=== PATIENT | male | born 1985 | race African-American/Black ===

== ENCOUNTER 2017-03-19 13:45 | Observation (INO) | payer MEDICARE, OTHER ==
[~2017-03-19] VITALS: Ht 177.8 cm; Wt 60.0 kg
[~2017-03-19 13:45] MED LIST: BENZ1 PO; BENZ1TAB PO; DEPA500T3 PO; FLUP125P IM; RISP.5 PO; RISP1 PO
[2017-03-19 13:46] VITALS: BP 111/82; PULSE 98; RESP 14; TEMP 97.7; O2SAT 97
--- NOTE | 2017-03-19 14:48 | PD ---
HPI Chief Complaint: Psychiatric Symptoms Time Seen by Provider: 14:35 Travel History International Travel<30 days: No Contact w/Intl Traveler<30days: No Traveled to known affect area: No History of Present Illness HPI 32-year-old male with history of schizophrenia presents with his mother voluntarily for psychiatric evaluation. Over the past several days the patient has been increasingly agitated, talking to himself, intermittently screaming, having paranoid hallucinations. Last night he woke up and they weren't told the neighbor that someone shot him in the head. The mother reports that his schizophrenia symptoms have been well-controlled asthma patient but she is concerned that he may not be taking his medication as prescribed. He does not have an appointment with his psychiatrist at [facility] ([facility]) until April 01 in because the symptoms have been worsening this prompted evaluation today. He does endorse increasing alcohol use over the past few weeks as well. He admits to occasional marijuana use. Denies any suicidal or homicidal ideation. He has no other complaints at this time. PFSH Past Medical History Anxiety: Yes Depression: Yes Diminished Hearing: No Endocrine: No Gastrointestinal Disorders: No Genitourinary: No Immune Disorder: No Inguinal Hernia: Yes Implanted Vascular Access Dvce: No Musculoskeletal: No Neurologic: No Reproductive: No Respiratory: No Schizophrenia: Yes (PARANOID TYPE) PNEUMOCCOCAL Vaccine (Year): 2 Past Surgical History Abdominal Surgery: Yes (INGUINAL HERNIA RIGHT) Genitourinary Surgery: Yes (INGUINAL HERNIA REPAIR) Social History Alcohol Use: Yes Tobacco Use: Yes Substance Use: No Allergies-Medications (Allergen,Severity, Reaction): Coded Allergies: No Known Allergies (Verified , 03/19/17) Reported Meds & Prescriptions Reported Meds & Active Scripts Active Reported Benztropine (Benztropine Mesylate) 0.5 Mg Tab 1 Mg PO BID Depakote ER (Divalproex Sodium) 500 Mg Daniele 500 Mg PO BID Risperdal (Risperidone) 4 Mg Tab 4 Mg PO Q12HR Review of Systems Except as stated in HPI: all other systems reviewed are Neg Physical Exam Narrative GENERAL: Well-developed well-nourished male in no acute distress SKIN: Warm and dry. HEAD: Atraumatic. Normocephalic. EYES: Pupils equal and round. No scleral icterus. No injection or drainage. ENT: No nasal bleeding or discharge. Mucous membranes pink and moist. NECK: Trachea midline. No JVD. CARDIOVASCULAR: Regular rate and rhythm. No murmur appreciated. RESPIRATORY: No accessory muscle use. Clear to auscultation. Breath sounds equal bilaterally. GASTROINTESTINAL: Abdomen soft, non-tender, nondistended. Hepatic and splenic margins not palpable. MUSCULOSKELETAL: No obvious deformities. No edema NEUROLOGICAL: Awake and alert. No obvious cranial nerve deficits. Motor grossly within normal limits. Normal speech. PSYCHIATRIC: Flat affect, anxious and rocking back and forth. Data Data Last Documented VS Vital Signs Date Time Temp Pulse Resp B/P Pulse Ox O2 Delivery O2 Flow Rate FiO2 03/19/17 13:46 97.7 98 14 111/82 97 Orders Complete Blood Count With Diff (03/19/17 14:45) Comprehensive Metabolic Panel (03/19/17 14:45) Psych Screen (03/19/17 14:45) Drug Screen, Random Urine (03/19/17 14:45) Alcohol (Ethanol) (03/19/17 14:45) Urinalysis - C+S If Indicated (03/19/17 16:54) ^ Sitter (03/19/17 16:54) Benztropine (Cogentin) (03/19/17 21:00) Divalproex Er (Depakote Er) (03/19/17 21:00) (Nf) Risperidone (Risperdal) (03/19/17 21:00) Consult Psychiatry (03/19/17 ) Labs Laboratory Tests Test 03/19/17 15:43 White Blood Count 7.3 TH/MM3 Red Blood Count 5.43 MIL/MM3 Hemoglobin 16.4 GM/DL Hematocrit 49.3 % Mean Corpuscular Volume 90.8 FL Mean Corpuscular Hemoglobin 30.2 PG Mean Corpuscular Hemoglobin 33.3 % Concent Red Cell Distribution Width 13.8 % Platelet Count 218 TH/MM3 Mean Platelet Volume 7.9 FL Neutrophils (%) (Auto) 76.4 % Lymphocytes (%) (Auto) 9.0 % Monocytes (%) (Auto) 14.5 % Eosinophils (%) (Auto) 0.0 % Basophils (%) (Auto) 0.1 % Neutrophils # (Auto) 5.6 TH/MM3 Lymphocytes # (Auto) 0.7 TH/MM3 Monocytes # (Auto) 1.1 TH/MM3 Eosinophils # (Auto) 0.0 TH/MM3 Basophils # (Auto) 0.0 TH/MM3 CBC Comment DIFF FINAL Differential Comment Sodium Level 137 MEQ/L Potassium Level 3.9 MEQ/L Chloride Level 102 MEQ/L Carbon Dioxide Level 23.7 MEQ/L Anion Gap 11 MEQ/L Blood Urea Nitrogen 18 MG/DL Creatinine 2.82 MG/DL Estimat Glomerular Filtration 32 ML/MIN Rate Random Glucose 103 MG/DL Calcium Level 10.2 MG/DL Total Bilirubin 1.1 MG/DL Aspartate Amino Transf 210 U/L (AST/SGOT) Alanine Aminotransferase 81 U/L (ALT/SGPT) Alkaline Phosphatase 79 U/L Total Protein 9.6 GM/DL Albumin 5.0 GM/DL Ethyl Alcohol Level LESS THAN 3 MG/DL MDM Medical Decision Making Medical Screen Exam Complete: Yes Emergency Medical Condition: Yes Medical Record Reviewed: Yes Differential Diagnosis Schizophrenia, medication noncompliance, acute psychosis, substance induced mood disorder Narrative Course 32-year-old male presents voluntarily requesting psychiatric evaluation of worsening agitation, paranoid hallucinations. The patient's lab work reveals a creatinine of 2.82, GFR 32 which is significantly elevated from his baseline, GFR and November 2015 was 115. He has normal BUN. The patient will be admitted for further workup of this acute renal insufficiency. Likely psychiatric consultation. A sitter will be ordered. Discussed with Dr. Izaguirre who is agreeable with admission. Diagnosis Primary Impression: Schizophrenia, paranoid Additional Impression: Acute renal insufficiency Admitting Information Admitting Physician Requests: Observation Filiberto Yuan Mar 19, 2017 14:48
[2017-03-19] MEDS ORDERED: RISP4TAB41 PO (14:53)
[2017-03-19] MEDS ORDERED: BENZ0.5T PO (14:53)
[2017-03-19] MEDS ORDERED: DEPA500T3 PO (14:53)
[2017-03-19 16:33] LABS: AUTOMATED NEUTROPHIL # 5.6 TH/MM3 (1.8-7.7); BASOPHIL % 0.1 % (0.0-2.0); HEMATOCRIT 49.3 % (39.0-51.0); HEMO FLAGS DIFF FINAL; LYMPHOCYTE # 0.7 TH/MM3 (1.0-4.8); MEAN CELL VOLUME 90.8 FL (80.0-100.0); MEAN CORPUSCULAR HEMOGLOBIN 30.2 PG (27.0-34.0); MEAN CORPUSCULAR HGB CONC 33.3 % (32.0-36.0); MONO % 14.5 % (0.0-8.0); NEUT % 76.4 % (16.0-70.0); PLATELET COUNT 218 TH/MM3 (150-450); RED BLOOD COUNT 5.43 MIL/MM3 (4.50-5.90); RED CELL DISTRIBUTION WIDTH 13.8 % (11.6-17.2); WHITE BLOOD COUNT 7.3 TH/MM3 (4.0-11.0)
[2017-03-19 16:41] LABS: ALT (GPT) 81 U/L (12-78); ANION GAP 11 MEQ/L (5-15); AST (GOT) 210 U/L (15-37); BICARBONATE 23.7 MEQ/L (21.0-32.0); BLOOD UREA NITROGEN 18 MG/DL (7-18); CHLORIDE 102 MEQ/L (98-107); GLOMERULAR FILTRATION RATE 32 ML/MIN (>89); POTASSIUM 3.9 MEQ/L (3.5-5.1); SODIUM (NA) 137 MEQ/L (136-145)
[2017-03-19 16:43] LABS: ALKALINE PHOSPHATASE 79 U/L (45-117); TOTAL BILIRUBIN ADULT 1.1 MG/DL (0.2-1.0)
[2017-03-19] MEDS ORDERED: SODIUM CHLOR 0.9% 1000 ML INJ 1,000 ML IV SCH (17:03)
[2017-03-19] MEDS ORDERED: SODIUM CHLORIDE 0.9% FLUSH 10 ML FLUSH IV FLUSH PRN (17:15)
[2017-03-19] MEDS ORDERED: ACETAMINOPHEN 325 MG TAB PO PRN (17:15)
[2017-03-19] MEDS ORDERED: NALOXONE HCL 0.4 MG/ML AMP IV PRN (17:15)
[2017-03-19] MEDS ORDERED: LACTULOSE SYRUP 20 GM/30 ML CUP PO PRN (17:15)
[2017-03-19] MEDS ORDERED: ONDANSETRON HCL 4 MG/2 ML VIAL IVP PRN (17:15)
[2017-03-19] MEDS ORDERED: BISACODYL 10 MG SUPP RECTAL PRN (17:15)
[2017-03-19] MEDS ORDERED: SENNOSIDES 8.6 MG TAB PO PRN (17:15)
[2017-03-19] MEDS ORDERED: MAGNESIUM HYDROXIDE SUSP 30 ML CUP PO PRN (17:15)
--- NOTE | 2017-03-19 17:15 | HHI.HP ---
Brought in for Psychiatry specialist consult. HPI Service [facility] Primary Care Physician No Primary Care Physician Admission Diagnosis acute renal insufficiency, schizophrenia Diagnoses: Chief Complaint: Brought in by his mother for Psychiatry specialist consult. Travel History International Travel<30 Days: No Contact w/Intl Traveler <30 Da: No Traveled to Known Affected Are: No History of Present Illness 32-year-old male with history of schizophrenia presents with his mother voluntarily for psychiatric evaluation. Over the past several days the patient has been increasingly agitated, talking to himself, intermittently screaming, having paranoid hallucinations. Last night he woke up and they weren't told the neighbor that someone shot him in the head. The mother reports that his schizophrenia symptoms have been well- controlled asthma patient but she is concerned that he may not be taking his medication as prescribed. He does not have an appointment with his psychiatrist at [facility] until April 01 in because the symptoms have been worsening this prompted evaluation today. He does endorse increasing alcohol use over the past few weeks as well. He admits to occasional marijuana use. Denies any suicidal or homicidal ideation. He has no other complaints at this time. Seen in his bedroom his mother was not present but sitter in the room and nurse. Past Family Social History Past Medical History Anxiety Depression Schizophrenia Paranoid Type Past Surgical History Right inguinal hernia repair Reported Medications Reported Meds & Active Scripts Active Reported Benztropine (Benztropine Mesylate) 0.5 Mg Tab 1 Mg PO BID Depakote ER (Divalproex Sodium) 500 Mg Daniele 500 Mg PO BID Risperdal (Risperidone) 4 Mg Tab 4 Mg PO Q12HR Allergies: Coded Allergies: No Known Allergies (Verified , 03/19/17) Active Ordered Medications Current Medications Medications (Trade) Dose Ordered Sig/Nelson Route Start Time Stop Time Status Last Admin (Cogentin) 1 mg BID PO 03/19/17 21:00 (Depakote Er) 500 mg BID PO 03/19/17 21:00 Risperidone 4 mg 4 mg Q12HR PO 03/19/17 21:00 Sodium Chloride 1,000 ml @ 1,000 mls/hr Q1H IV 03/19/17 17:03 03/19/17 18:02 (NS 1000 ml Inj) 1,000 ml @ 150 mls/hr Q6H40M IV 03/19/17 17:02 (NS Flush) 2 ml UNSCH PRN IV FLUSH 03/19/17 17:15 (NS Flush) 2 ml BID IV FLUSH 03/19/17 21:00 (Tylenol) 650 mg Q4H PRN PO 03/19/17 17:15 (Zofran Inj) 4 mg Q6H PRN IVP 03/19/17 17:15 (Narcan Inj) 0.4 mg UNSCH PRN IV 03/19/17 17:15 (Deanne-Colace) 1 tab BID PO 03/19/17 21:00 (Milk Of Magnesia Liq) 30 ml Q12H PRN PO 03/19/17 17:15 (Senokot) 17.2 mg Q12H PRN PO 03/19/17 17:15 (Dulcolax Supp) 10 mg DAILY PRN RECTAL 03/19/17 17:15 (Lactulose Liq) 30 ml DAILY PRN PO 03/19/17 17:15 Family History Asked and denied. Social History Alcohol abuse Tobacco dependence Physical Exam Vital Signs Vital Signs Date Time Temp Pulse Resp B/P Pulse Ox O2 Delivery O2 Flow Rate FiO2 03/19/17 13:46 97.7 98 14 111/82 97 Physical Exam GENERAL: Well-developed well-nourished male in no acute distress SKIN: Warm and dry. HEAD: Atraumatic. Normocephalic. EYES: Pupils equal and round. No scleral icterus. No injection or drainage. ENT: No nasal bleeding or discharge. Mucous membranes pink and moist. NECK: Trachea midline. No JVD. CARDIOVASCULAR: Regular rate and rhythm. No murmur appreciated. RESPIRATORY: No accessory muscle use. Clear to auscultation. Breath sounds equal bilaterally. GASTROINTESTINAL: Abdomen soft, non-tender, nondistended. Hepatic and splenic margins not palpable. MUSCULOSKELETAL: No obvious deformities. No edema NEUROLOGICAL: Awake and alert. No obvious cranial nerve deficits. Motor grossly within normal limits. Normal speech. PSYCHIATRIC: Flat affect, anxious and rocking back and forth. Laboratory Laboratory Tests Test 03/19/17 15:43 White Blood Count 7.3 Red Blood Count 5.43 Hemoglobin 16.4 Hematocrit 49.3 Mean Corpuscular Volume 90.8 Mean Corpuscular Hemoglobin 30.2 Mean Corpuscular Hemoglobin 33.3 Concent Red Cell Distribution Width 13.8 Platelet Count 218 Mean Platelet Volume 7.9 Neutrophils (%) (Auto) 76.4 Lymphocytes (%) (Auto) 9.0 Monocytes (%) (Auto) 14.5 Eosinophils (%) (Auto) 0.0 Basophils (%) (Auto) 0.1 Neutrophils # (Auto) 5.6 Lymphocytes # (Auto) 0.7 Monocytes # (Auto) 1.1 Eosinophils # (Auto) 0.0 Basophils # (Auto) 0.0 CBC Comment DIFF FINAL Differential Comment Sodium Level 137 Potassium Level 3.9 Chloride Level 102 Carbon Dioxide Level 23.7 Anion Gap 11 Blood Urea Nitrogen 18 Creatinine 2.82 Estimat Glomerular Filtration 32 Rate Random Glucose 103 Calcium Level 10.2 Total Bilirubin 1.1 Aspartate Amino Transf 210 (AST/SGOT) Alanine Aminotransferase 81 (ALT/SGPT) Alkaline Phosphatase 79 Total Protein 9.6 Albumin 5.0 Ethyl Alcohol Level LESS THAN 3 Result Diagram: 03/19/17 1543 03/19/17 1543 Assessment and Plan Assessment and Plan 1. Acute Kidney Injury Creatinine 2.82, Kidney ultrasound and follow. patient dehydrated giving IV fluids and follow with BMP in am tomorrow. 2. Schizophrenia Paranoid Type continue Home medicines, grain origination specialist consult DVT prophylaxis with SCDs. Code Status Full Code. Discussed Condition With Patient, nurse and sitter. Shakir Olvera MD Mar 19, 2017 17:15
[2017-03-19] MEDS ORDERED: SODIUM CHLOR 0.9% 1000 ML INJ 1,000 ML IV ONE (17:30)
--- NOTE | 2017-03-19 17:53 | RADRPT ---
EXAM DATE/TIME: 03/19/2017 17:18 [place] COMPARISON: No previous studies available for comparison. INDICATIONS : Increased BUN/creatinine. MEDICAL HISTORY : Schizophrenia. Depression. Anxiety. Substance use. SURGICAL HISTORY : Inguinal hernia repair. ENCOUNTER: Initial ACUITY: 1 day PAIN SCORE: 0/10 LOCATION: Bilateral flank MEASUREMENTS: RIGHT KIDNEY: 10.5 x 5.2 x 3.6 cm LEFT KIDNEY: 10.5 x 4.2 x 5.5 cm FINDINGS: RIGHT KIDNEY: Renal cortex is normal in thickness and echotexture. No hydronephrosis, stone, or mass. LEFT KIDNEY: Renal cortex is normal in thickness and echotexture. No hydronephrosis, stone, or mass. BLADDER: Within normal limits given the degree of distension. CONCLUSION: Normal examination. Hugo Bang MD on March 19, 2017 at 17:49 Board Certified Radiologist. This report was verified electronically.
[2017-03-19 18:29] VITALS: BP 135/89; PULSE 76; RESP 22; TEMP 97.6; O2SAT 97
[2017-03-19] MEDS: SODIUM CHLOR 0.9% 1000 ML INJ 1,000 ML IV SCH (18:30)
[2017-03-19 20:00] VITALS: BP 120/76; PULSE 73; RESP 20; TEMP 97.9; O2SAT 98
[2017-03-19] MEDS: DOCUSATE SODIUM 50 MG/SENNA 8.6 MG TAB PO SCH (21:22)
[2017-03-19] MEDS: DIVALPROEX SODIUM E.R. 500 MG TAB PO SCH (21:23)
[2017-03-19] MEDS: risperiDONE 1 MG TAB PO SCH (23:24)
[2017-03-19] MEDS: BENZTROPINE MESYLATE 1 MG TAB PO SCH (23:25)
[2017-03-19] MEDS: SODIUM CHLORIDE 0.9% FLUSH 10 ML FLUSH IV FLUSH SCH (23:26)
[2017-03-20] VITALS: BP 121/75; PULSE 70; RESP 20; TEMP 97; O2SAT 98
[2017-03-20 04:00] VITALS: BP 116/70; PULSE 80; RESP 20; TEMP 97.8; O2SAT 98
[2017-03-20] MEDS: SODIUM CHLOR 0.9% 1000 ML INJ 1,000 ML IV SCH ×2 (06:14→08:33)
[2017-03-20 08:00] VITALS: BP 121/73; PULSE 90; RESP 18; TEMP 97.4; O2SAT 97
[2017-03-20] MEDS: DOCUSATE SODIUM 50 MG/SENNA 8.6 MG TAB PO SCH (08:32)
[2017-03-20] MEDS: DIVALPROEX SODIUM E.R. 500 MG TAB PO SCH (08:32)
[2017-03-20] MEDS: risperiDONE 1 MG TAB PO SCH (08:32)
[2017-03-20] MEDS: SODIUM CHLORIDE 0.9% FLUSH 10 ML FLUSH IV FLUSH SCH (08:33)
[2017-03-20] MEDS: BENZTROPINE MESYLATE 1 MG TAB PO SCH (08:33)
[2017-03-20 08:53] LABS: AUTOMATED NEUTROPHIL # 2.8 TH/MM3 (1.8-7.7); BASOPHIL % 0.4 % (0.0-2.0); EOSINOPHIL % 0.5 % (0.0-4.0); HEMATOCRIT 40.3 % (39.0-51.0); HEMO FLAGS DIFF FINAL; LYMPH % 21.1 % (9.0-44.0); LYMPHOCYTE # 0.9 TH/MM3 (1.0-4.8); MEAN CELL VOLUME 89.9 FL (80.0-100.0); MEAN CORPUSCULAR HEMOGLOBIN 30.8 PG (27.0-34.0); MEAN CORPUSCULAR HGB CONC 34.3 % (32.0-36.0); MONO % 10.8 % (0.0-8.0); NEUT % 67.2 % (16.0-70.0); PLATELET COUNT 183 TH/MM3 (150-450); RED BLOOD COUNT 4.48 MIL/MM3 (4.50-5.90); RED CELL DISTRIBUTION WIDTH 13.4 % (11.6-17.2); WHITE BLOOD COUNT 4.2 TH/MM3 (4.0-11.0)
[2017-03-20 09:18] LABS: BICARBONATE 23.2 MEQ/L (21.0-32.0); POTASSIUM 3.2 MEQ/L (3.5-5.1)
[2017-03-20 09:39] LABS: INDIRECT BILIRUBIN 0.6 MG/DL (0.0-0.8); TOTAL BILIRUBIN ADULT 0.9 MG/DL (0.2-1.0)
--- NOTE | 2017-03-20 10:55 | HHI.PR ---
Subjective Remarks Follow-up for schizophrenia and rhabdomyolysis. The patient has no acute medical complaints today. He states he has been eating, denies any vomiting. Denies any diarrhea. He denies any pain or muscle cramping. Psychiatry has recommended transfer to med psych unit for continued IV hydration. Objective Vitals Vital Signs Date Time Temp Pulse Resp B/P Pulse Ox O2 Delivery O2 Flow Rate FiO2 03/20/17 08:00 97.4 90 18 121/73 97 03/20/17 04:00 97.8 80 20 116/70 98 03/20/17 00:00 97.0 70 20 121/75 98 03/19/17 20:00 97.9 73 20 120/76 98 03/19/17 18:29 97.6 76 22 135/89 97 03/19/17 13:46 97.7 98 14 111/82 97 I/O 03/19/17 03/19/17 03/19/17 03/20/17 03/20/17 03/20/17 07:00 15:00 23:00 07:00 15:00 23:00 Intake Total 1640 ml Output Total 500 ml Balance 1140 ml Intake Oral 440 ml IV Total 1200 ml Output Urine Total 500 ml # Bowel Movements 0 Result Diagram: 03/20/17 0616 03/20/17 0616 Imaging Last Impressions Renal Ultrasound 03/19/17 0000 Signed Impressions: Service Date/Time: Sunday, March 19, 2017 17:18 - CONCLUSION: Normal examination. Hugo Bang MD Objective Remarks GENERAL: Well-developed well-nourished. In no acute distress. SKIN: Warm and dry. No lesions noted. HEENT: Normocephalic. Pupils equal and round. Mucous membranes pink and moist. CARDIOVASCULAR: Regular rate and rhythm. No murmur appreciated. RESPIRATORY: No accessory muscle use. Clear to auscultation. Breath sounds equal bilaterally. GASTROINTESTINAL: Abdomen soft, non-tender, nondistended. Bowel sounds x4. MUSCULOSKELETAL: No obvious deformities. No clubbing or cyanosis. No edema. NEUROLOGICAL: Awake and alert. No focal neurological deficits. Moves upper and lower extremities spontaneously. Normal speech. PSYCHIATRIC: Anxious mood and flat affect; insight and judgment fair A/P Assessment and Plan 32-year-old male with past medical history of schizophrenia who presented for voluntary psychiatric evaluation Rhabdomyolysis with acute kidney injury: Asymptomatic. Reviewed: Presented with creatinine 2.82, previously 0.9 throughout 12/06/15. Creatinine improved to 1.01, however CPK remains 12,000. Renal ultrasound normal. Potassium 3.2. -Continue aggressive IVF and trend CPK -UDS ordered -Replace potassium orally. Mildly elevated LFTs: Elevated bilirubin, AST, ALT. Secondary to rhabdomyolysis. Treatment as above. Schizophrenia with acute hallucinations and paranoia: Psychiatry has been consulted and recommends transferring to inpatient psychiatry. Continue home Cogentin, Depakote, and Risperdal. Mendel. DVT prophylaxis: SCDs Discharge Planning Discharge to med psych unit for continued aggressive IVF, laboratory monitoring , and psychiatric care Antonio Lizama Mar 20, 2017 10:55
[2017-03-20] MEDS ORDERED: POTASSIUM CHLORIDE 10 MEQ CONTROLLED RELEASE TAB PO ONE (11:00)
[2017-03-20] MEDS ORDERED: POTASSIUM CHLORIDE 20 MEQ PWD PACKET PO ONE (11:30)
--- NOTE | 2017-03-20 11:39 | PD.CONS ---
Provisional Diagnosis Admission Date Mar 19, 2017 at 17:04 [place] I. Chronic paranoid schizophrenia, acute exacerbation, alcohol use disorder [place] II. Deferred [place] III. No significant medical history [place] IV. Noncompliant with psychotropics, alcohol use [place] V. 40 History of Present Illness Service Psychiatry Consult Requested By Primary Care Physician No Primary Care Physician HPI The patient is a 32-year-old man, domiciled alone, single, unemployed, supported by [employer] [facility], with extensive psychiatric history of schizophrenia, alcohol use disorder, numerous psychiatric hospitalizations, known by service, last hospitalization was here in [place] in 2016 under the care of Dr. Sutton, documentation was reviewed, outpatient service in [facility], his on Risperdal 3 mg twice a day, Depakote 500 mg twice a day, medical history of asthma, who presents with his mother voluntarily for psychiatric evaluation. As per mother collateral information , Debora Mcmanus, , over the past several days the patient has been increasingly agitated, paranoid at times , yelling at night and bothering the neighbors, paranoid toward the neighbors, talking to himself, internally preoccupied, and having visual and auditory hallucinations. Last night he woke up and they weren't told the neighbor that someone shot him in the head. The mother, Debora Mcmanus, , reports that his psychotic symptoms have been well-controlled so far with medication until days ago, but she is concerned that he may not be taking his medication as prescribed and taking alcohol. He does not have an appointment with his psychiatrist at [facility] until April 01 in because the symptoms have been worsening this prompted evaluation today. He does endorse increasing alcohol use over the past few weeks as well. He admits to occasional marijuana use. Denies any suicidal or homicidal ideation. Patient is admitted under observation in the ER due to increased CPK and acute renal failure. He was adopted evaluation patient is found in his room, guarded, reticent, he says that he feels better, he says that he doesn't have a reason to be admitted psychiatrically. Patient says that he has been taking his medication on and off. He he says that he doesn't know the name of his medication or his psychiatrist, "ask my mother". No agitation, no aggressive behavior, no disorganization is evident at this moment. Review of Systems Constitutional: DENIES: Diaphoretic episodes, Fatigue, Fever, Weight gain, Weight loss, Chills, Dizziness, Change in appetite, Night Sweats Endocrine: DENIES: Heat/cold intolerance, Polydipsia, Polyuria, Polyphagia Eyes: DENIES: Blurred vision, Diplopia, Eye inflammation, Eye pain, Vision loss , Photosensitivity, Double Vision Ears, nose, mouth, throat: DENIES: Tinnitus, Hearing loss, Vertigo, Nasal discharge, Oral lesions, Throat pain, Hoarseness, Ear Pain, Running Nose, Epistaxis, Sinus Pain, Toothache, Odynophagia Respiratory: DENIES: Apneas, Cough, Snoring, Wheezing, Hemoptysis, Sputum production, Shortness of breath Cardiovascular: DENIES: Chest pain, Palpitations, Syncope, Dyspnea on Exertion , PND, Lower Extremity Edema, Orthopnea, Claudication Gastrointestinal: DENIES: Abdominal pain, Black stools, Bloody stools, Constipation, Diarrhea, Nausea, Vomiting, Difficulty Swallowing, Anorexia Genitourinary: DENIES: Sexual dysfunction, Urinary frequency, Urinary incontinence, Urgency, Hematuria, Dysuria, Nocturia, Penile Discharge, Testicular Pain, Testicular Swelling Musculoskeletal: DENIES: Joint pain, Muscle aches, Stiffness, Joint Swelling, Back pain, Neck pain Integumentary: DENIES: Abnormal pigmentation, Nail changes, Pruritus, Rash Hematologic/lymphatic: DENIES: Bruising, Lymphadenopathy Immunologic/allergic: DENIES: Eczema, Urticaria Neurologic: DENIES: Abnormal gait, Headache, Localized weakness, Paresthesias, Seizures, Speech Problems, Tremor, Poor Balance Psychiatric: DENIES: Anxiety, Confusion, Mood changes, Depression, Hallucinations, Agitation, Suicidal Ideation, Homicidal Ideation, Delusions Past Family Social History Coded Allergies: No Known Allergies (Verified , 03/19/17) Reported Medications Benztropine 0.5 Mg Tab1 Mg PO BID #60 TAB Ref 0 03/19/17 Divalproex ER (Depakote ER)500 Mg [id number] Mg PO BID #30 TAB Ref 0 03/19/17 Risperidone (Risperdal)4 Mg Tab4 Mg PO Q12HR #60 TAB Ref 0 03/19/17 Current Medications Medications (Trade) Dose Ordered Sig/Nelson Route Start Time Stop Time Status Last Admin (Cogentin) 1 mg BID PO 03/19/17 21:00 03/20/17 08:33 (Depakote Er) 500 mg BID PO 03/19/17 21:00 03/20/17 08:32 Risperidone 4 mg 4 mg Q12HR PO 03/19/17 21:00 03/20/17 08:32 (NS 1000 ml Inj) 1,000 ml @ 150 mls/hr Q6H40M IV 03/19/17 17:02 03/20/17 08:33 (NS Flush) 2 ml UNSCH PRN IV FLUSH 03/19/17 17:15 (NS Flush) 2 ml BID IV FLUSH 03/19/17 21:00 03/20/17 08:33 (Tylenol) 650 mg Q4H PRN PO 03/19/17 17:15 (Zofran Inj) 4 mg Q6H PRN IVP 03/19/17 17:15 (Narcan Inj) 0.4 mg UNSCH PRN IV 03/19/17 17:15 (Deanne-Colace) 1 tab BID PO 03/19/17 21:00 03/20/17 08:32 (Milk Of Magnesia Liq) 30 ml Q12H PRN PO 03/19/17 17:15 (Senokot) 17.2 mg Q12H PRN PO 03/19/17 17:15 (Dulcolax Supp) 10 mg DAILY PRN RECTAL 03/19/17 17:15 (Lactulose Liq) 30 ml DAILY PRN PO 03/19/17 17:15 (KCl Powder) 40 meq ONCE ONCE PO 03/20/17 11:30 03/20/17 11:31 Family History Patient denies psychiatric family history Social History Patient was born and raised in [place], he lives alone, single, unemployed , supported by [employer] [facility], Patient's Strengths (min. 2) Support of his mother Physical Exam A physical examination patient does not present any tremors, no withdrawal, no EPS, no psychomotor agitation or retardation Vital Signs Vital Signs Date Time Temp Pulse Resp B/P Pulse Ox O2 Delivery O2 Flow Rate FiO2 03/20/17 08:00 97.4 90 18 121/73 97 Lab Results Laboratory Tests Test 03/19/17 15:43 White Blood Count 7.3 Red Blood Count 5.43 Hemoglobin 16.4 Hematocrit 49.3 Mean Corpuscular Volume 90.8 Mean Corpuscular Hemoglobin 30.2 Mean Corpuscular Hemoglobin 33.3 Concent Red Cell Distribution Width 13.8 Platelet Count 218 Mean Platelet Volume 7.9 Neutrophils (%) (Auto) 76.4 Lymphocytes (%) (Auto) 9.0 Monocytes (%) (Auto) 14.5 Eosinophils (%) (Auto) 0.0 Basophils (%) (Auto) 0.1 Neutrophils # (Auto) 5.6 Lymphocytes # (Auto) 0.7 Monocytes # (Auto) 1.1 Eosinophils # (Auto) 0.0 Basophils # (Auto) 0.0 CBC Comment DIFF FINAL Differential Comment Sodium Level 137 Potassium Level 3.9 Chloride Level 102 Carbon Dioxide Level 23.7 Anion Gap 11 Blood Urea Nitrogen 18 Creatinine 2.82 Estimat Glomerular Filtration 32 Rate Random Glucose 103 Calcium Level 10.2 Total Bilirubin 1.1 Aspartate Amino Transf 210 (AST/SGOT) Alanine Aminotransferase 81 (ALT/SGPT) Alkaline Phosphatase 79 Total Protein 9.6 Albumin 5.0 Ethyl Alcohol Level LESS THAN 3 Result Diagram: 03/19/17 1543 03/19/17 1543 Mental Status Examination Appearance man, [facility], [facility], poor hygiene, poorly cooperative , guarded Speech: Unremarkable, Hesitant Orientation: x3 Memory: Unremarkable Thought Process: Goal Directed, Thought Blocking Thought Content: Bizarre thinking, Paranoid Hallucination Type: None Attention and Concentration: Good Suicidal Ideation: No Previous Suicide Attempts: No Homicidal Ideation: No Previous Homicide Attempts: No Insight: Poor Judgment: Poor Affect: Irritable Affect if Inappropriate: Flat Mood: Appropriate Motor Activity: Normal gait Assessment & Plan Problem List: (1) Schizophrenia, paranoid Assessment & Plan: Patient seems to present a decompensation of his schizophrenic condition, as per mother patient has been increasingly paranoid, disorganized, talking to himself, internally preoccupied, visual and auditory hallucinations, yelling at night, paranoia against his neighbor's in the context of noncompliance with medications, and increased alcohol use. On somatic evaluation patient is guarded, selectively mute, but mostly cooperative , and willing to accept a voluntary admission for stabilization. Due to his acute renal failure, increased CPK, and his need of aggressive hydration, patient will be admitted in the med psych unit. We will restart Risperdal 2 mg twice a day, Depakote 500 mg twice a day, with order Depakote level. Collateral information from [facility] is is still pending. Will order also Depakote levels. ICD Code: F20.0 Assessment & Plan Estimated LOS: Raj Newsome MD Mar 20, 2017 11:39
[2017-03-20] MEDS ORDERED: risperiDONE 1 MG TAB PO SCH (21:00)
== END 2017-03-20 13:02 ==
LOC: NEPE 13:45 → NEDA 17:04 → NEPHCDU 18:09
PROVIDERS: ADMIT Hospitalist; ATTEND Hospitalist
DX: F20.0 Paranoid schizophrenia (principal); M62.82 Rhabdomyolysis; N17.9 Acute kidney failure, unspecified; F41.9 Anxiety disorder, unspecified; F32.9 Major depressive disorder, single episode, unspecified; F17.200 Nicotine dependence, unspecified, uncomplicated; Z56.0 Unemployment, unspecified
CPT/HCPCS: 76775; 80048; 80053; 80076; 80164; 80307; 82550; 82552; 85025; 99285; G0378; J7030

== ENCOUNTER 2017-03-20 11:27 | Inpatient (IN) | payer MEDICARE, OTHER ==
[~2017-03-20] VITALS: Ht 177.8 cm; Wt 58.6 kg
[~2017-03-20 11:27] MED LIST changes: +BENZ0.5T PO; +RISP4TAB41 PO
[2017-03-20 13:38] VITALS: BP 115/68; PULSE 81; RESP 16; TEMP 98.3; O2SAT 96
[2017-03-20] MEDS: risperiDONE 1 MG TAB PO SCH ×2 (14:15→20:33)
[2017-03-20] MEDS: DIVALPROEX SODIUM E.R. 500 MG TAB PO SCH ×2 (14:15→20:33)
[2017-03-20] MEDS: BENZTROPINE MESYLATE 1 MG TAB PO SCH ×2 (14:15→20:33)
[2017-03-20 19:10] VITALS: BP 134/61; PULSE 86; RESP 16; TEMP 98; O2SAT 97
[2017-03-21 06:17] VITALS: BP 100/60; PULSE 73; RESP 17; TEMP 97.6; O2SAT 97
[2017-03-21] MEDS: BENZTROPINE MESYLATE 1 MG TAB PO SCH ×2 (08:56→20:54)
[2017-03-21] MEDS: risperiDONE 1 MG TAB PO SCH ×2 (08:56→20:54)
[2017-03-21] MEDS: DIVALPROEX SODIUM E.R. 500 MG TAB PO SCH ×2 (08:56→20:54)
--- NOTE | 2017-03-21 12:43 | HHI.HP ---
Provisional Diagnosis Admission Date Mar 20, 2017 at 13:03 Florence I. Schizophrenia, paranoid type, acute exacerbation, alcohol use disorder Florence II. Deferred Florence III. Acute renal failure Florence IV. History of noncompliance with medication, alcohol use Florence V. 35 Certification of Person's Competence To Provide Express and Informed Consent I have personally examined Danny Mcmanus , a person being served at [facility] on, Mar 21, 2017 12:33. Express and informed consent means consent voluntarily given in writing, by a competent person, after sufficient explanation and disclosure of the subject matter involved to enable the person to make a knowing and willful decision without any element of force, fraud, deceit, duress, or other form of constraint or coercion. This person is 18 years of age or older, is not now known to be incompetent to consent to treatment with a guardian advocate, and does not have a health care surrogate or proxy currently making medical treatment decisions. I have found this person to be one of the following: [X] Competent to provide express and informed consent, as defined above, for voluntary admission to this facility and is competent to provide express and informed consent for treatment. He/she has the consistent capacity to make well reasoned, willful, and knowing decisions concerning his or her medical or mental health treatment. The person fully and consistently understands the purpose of the admission for examination/placement and is fully capable of personally exercising all rights assured under [place] Incompetent to provide express and informed consent to voluntary admission, and this is incompetent to provide express and informed consent to treatment. The person must be transferred to involuntary status and a petition for a guardian advocate filed with the Circuit Court. [] Refusing to provide express and informed consent to voluntary admission but is competent to provide express and informed consent for treatment. The person must be discharged or transferred to involuntary status. Form shall be completed within 24 hours of a person's arrival at the receiving facility and filed in the clinical record of each person: 1. Admitted on a voluntary basis 2. Permitted to provide express and informed consent to his/her own treatment 3. Allowed to transfer from involuntary to voluntary status 4. Prior to permitting a person to consent to his or her own treatment after having been previously found incompetent to consent to treatment. History of Present Illness Capacity: Has Capacity HPI 02/17/2017 The patient is a 32-year-old man, domiciled alone, single, unemployed, supported by [facility], with extensive psychiatric history of schizophrenia, alcohol use disorder, numerous psychiatric hospitalizations, known by service, last hospitalization was here in [place] in 2016 under the care of Dr. Sutton, documentation was reviewed, outpatient service in [facility], his on Risperdal 3 mg twice a day, Depakote 500 mg twice a day, medical history of asthma, who presents with his mother voluntarily for psychiatric evaluation. As per mother collateral information Debora Mcmanus, , over the past several days the patient has been increasingly agitated, paranoid at times , yelling at night and bothering the neighbors, paranoid toward the neighbors, talking to himself, internally preoccupied, and having visual and auditory hallucinations. Last night he woke up and they weren't told the neighbor that someone shot him in the head. The mother, Debora Mcmanus, , reports that his psychotic symptoms have been well-controlled so far with medication until days ago, but she is concerned that he may not be taking his medication as prescribed and taking alcohol. He does not have an appointment with his psychiatrist at [facility] until April 01 in because the symptoms have been worsening this prompted evaluation today. He does endorse increasing alcohol use over the past few weeks as well. He admits to occasional marijuana use. Denies any suicidal or homicidal ideation. Patient is admitted under observation in the ER due to increased CPK and acute renal failure. He was adopted evaluation patient is found in his room, guarded, reticent, he says that he feels better, he says that he doesn't have a reason to be admitted psychiatrically. Patient says that he has been taking his medication on and off. He he says that he doesn't know the name of his medication or his psychiatrist, "ask my mother". No agitation, no aggressive behavior, no disorganization is evident at this moment. 02/18/2017: On psychiatric evaluation today patient is found pacing in the unit, patient says that he feels better, he says that he has been walking in cycles, "looking for power", he seems to be disorganized, loosening of associations, bizarre and delusional ideas, paranoid against staff, however no agitation, no aggressive behavior, and patient seems to be redirectable. Patient admits that he has been taking his medication on and off, using alcohol and marijuana frequent. Today his color level is 52. Patient seems to be internally stimulated, but he denies visual and auditory hallucinations, he denies suicidal and homicidal ideation. Patient is oriented 3, no attention deficit, no fluctuation of consciousness present. Review of Systems Constitutional: DENIES: Diaphoretic episodes, Fatigue, Fever, Weight gain, Weight loss, Chills, Dizziness, Change in appetite, Night Sweats Endocrine: DENIES: Heat/cold intolerance, Polydipsia, Polyuria, Polyphagia Eyes: DENIES: Blurred vision, Diplopia, Eye inflammation, Eye pain, Vision loss , Photosensitivity, Double Vision Ears, nose, mouth, throat: DENIES: Tinnitus, Hearing loss, Vertigo, Nasal discharge, Oral lesions, Throat pain, Hoarseness, Ear Pain, Running Nose, Epistaxis, Sinus Pain, Toothache, Odynophagia Respiratory: DENIES: Apneas, Cough, Snoring, Wheezing, Hemoptysis, Sputum production, Shortness of breath Cardiovascular: DENIES: Chest pain, Palpitations, Syncope, Dyspnea on Exertion , PND, Lower Extremity Edema, Orthopnea, Claudication Gastrointestinal: DENIES: Abdominal pain, Black stools, Bloody stools, Constipation, Diarrhea, Nausea, Vomiting, Difficulty Swallowing, Anorexia Hematologic/lymphatic: DENIES: Bruising, Lymphadenopathy Neurologic: DENIES: Abnormal gait, Headache, Localized weakness, Paresthesias, Seizures, Speech Problems, Tremor, Poor Balance Psychiatric: COMPLAINS OF: Agitation, Delusions Past Psych History Violence risk - others (6 mos) Increased Violence risk - self (6 mos) Increased Substance Abuse History Drugs/Alcohol past 12 months Patient has been using marijuana and alcohol frequently in the last month, he fails to quantify his intake Past Family Social History Coded Allergies: No Known Allergies (Verified , 03/19/17) Reported Medications Benztropine 0.5 Mg Tab1 Mg PO BID #60 TAB Ref 0 03/19/17 Divalproex ER (Depakote ER)500 Mg [id number] Mg PO BID #30 TAB Ref 0 03/19/17 Risperidone (Risperdal)4 Mg Tab4 Mg PO Q12HR #60 TAB Ref 0 03/19/17 Current Medications Medications (Trade) Dose Ordered Sig/Nelson Route Start Time Stop Time Status Last Admin (Cogentin) 1 mg BID PO 03/20/17 14:15 03/21/17 08:56 (Depakote Er) 500 mg BID PO 03/20/17 14:15 03/21/17 08:56 (risperDAL) 4 mg Q12HR PO 03/20/17 14:15 03/21/17 08:56 Family History Patient denies family psychiatric history Social History Patient was born and raised in [place], he lives alone, single, unemployed , supported by [facility], Patient's Strengths (min. 2) Verbal communication, Physical Exam On physical examination, no tremors, no ideas, no stiffness, no withdrawal symptoms, no psychomotor retardation, but agitation present. Vital Signs Vital Signs Date Time Temp Pulse Resp B/P Pulse Ox O2 Delivery O2 Flow Rate FiO2 03/21/17 06:17 97.6 73 17 100/60 97 Lab Results Test 03/19/17 15:43 White Blood Count 7.3 Red Blood Count 5.43 Hemoglobin 16.4 Hematocrit 49.3 Mean Corpuscular Volume 90.8 Mean Corpuscular Hemoglobin 30.2 Mean Corpuscular Hemoglobin 33.3 Concent Red Cell Distribution Width 13.8 Platelet Count 218 Mean Platelet Volume 7.9 Neutrophils (%) (Auto) 76.4 Lymphocytes (%) (Auto) 9.0 Monocytes (%) (Auto) 14.5 Eosinophils (%) (Auto) 0.0 Basophils (%) (Auto) 0.1 Neutrophils # (Auto) 5.6 Lymphocytes # (Auto) 0.7 Monocytes # (Auto) 1.1 Eosinophils # (Auto) 0.0 Basophils # (Auto) 0.0 CBC Comment DIFF FINAL Differential Comment Sodium Level 137 Potassium Level 3.9 Chloride Level 102 Carbon Dioxide Level 23.7 Anion Gap 11 Blood Urea Nitrogen 18 Creatinine 2.82 Estimat Glomerular Filtration 32 Rate Random Glucose 103 Calcium Level 10.2 Total Bilirubin 1.1 Aspartate Amino Transf 210 (AST/SGOT) Alanine Aminotransferase 81 (ALT/SGPT) Alkaline Phosphatase 79 Total Protein 9.6 Albumin 5.0 Ethyl Alcohol Level LESS THAN 3 Result Diagram: 03/19/17 1543 03/19/17 1543 Mental Status Examination Appearance man, disheveled, poor dental hygiene, hospital [facility], age appearing, superficially cooperative, agitated Speech: Tangential Orientation: x3 Memory: Unremarkable Thought Process: Loose Association, Tangential Thought Content: Paranoid Language Fluent and spontaneous Fund of Knowledge Limited and concrete Hallucination Type: None Attention and Concentration: Good Attention Remarks No attention deficit Suicidal Ideation: No Previous Suicide Attempts: Yes Homicidal Ideation: No Previous Homicide Attempts: No Insight: Poor Judgment: Poor Affect: Irritable Mood: Irritable Motor Activity: Normal gait Assessment & Plan Problem List: (1) Schizophrenia, paranoid Assessment & Plan: Patient seems to present a decompensation of his schizophrenic condition, as per mother patient has been increasingly paranoid, disorganized, talking to himself, internally preoccupied, visual and auditory hallucinations, yelling at night, paranoia against his neighbor's in the context of noncompliance with medications, and increased alcohol use. On somatic evaluation patient is guarded, selectively mute, but mostly cooperative , and willing to accept a voluntary admission for stabilization. Due to his acute renal failure, increased CPK, and his need of aggressive hydration, patient will be admitted in the med psych unit. We would restart 4 mg twice a day, Depakote 500 mg twice a day, with order Depakote level. Collateral information from [facility] is is still pending. Will order also Depakote levels. spot worker intervention for psychosocial assessment, collateral information, individual and group psychotherapy. Extensive support, motivation psycho education provided. ICD Code: F20.0 Assessment & Plan Estimated LOS: Raj Newsome MD Mar 21, 2017 12:42
[2017-03-21 17:29] VITALS: BP 102/65; PULSE 72; RESP 16; TEMP 97.9; O2SAT 98
[2017-03-22 05:36] VITALS: BP 106/57; PULSE 54; RESP 16; TEMP 98.2; O2SAT 99
[2017-03-22] MEDS: BENZTROPINE MESYLATE 1 MG TAB PO SCH (08:34)
[2017-03-22] MEDS: DIVALPROEX SODIUM E.R. 500 MG TAB PO SCH (08:34)
[2017-03-22] MEDS: risperiDONE 1 MG TAB PO SCH (08:34)
[2017-03-22] MEDS ORDERED: RISP1 PO (10:53)
[2017-03-22] MEDS ORDERED: Benztropine PO (10:53)
[2017-03-22] MEDS ORDERED: DEPA500T3 PO (10:53)
--- NOTE | 2017-03-22 12:10 | HHI.DS ---
Psychiatry Discharge Summary Inpatient Psychiatric care?: Yes Advance Directive: No Reason Not Provided: Due to Patient Condition Mental Health AdvanceDirective: No Health Care Proxy: Yes Admission Admission Date Mar 20, 2017 at 13:03 Admission Diagnosis: (1) Schizophrenia, paranoid ICD Code: F20.0 Brief History 02/17/2017 The patient is a 32-year-old man, domiciled alone, single, unemployed, supported by [facility], with extensive psychiatric history of schizophrenia, alcohol use disorder, numerous psychiatric hospitalizations, known by service, last hospitalization was here in [place] in 2016 under the care of Dr. Sutton, documentation was reviewed, outpatient service in [facility], his on Risperdal 3 mg twice a day, Depakote 500 mg twice a day, medical history of asthma, who presents with his mother voluntarily for psychiatric evaluation. As per mother collateral information Debora Mcmanus, , over the past several days the patient has been increasingly agitated, paranoid at times , yelling at night and bothering the neighbors, paranoid toward the neighbors, talking to himself, internally preoccupied, and having visual and auditory hallucinations. Last night he woke up and they weren't told the neighbor that someone shot him in the head. The mother, Debora Mcmanus, , reports that his psychotic symptoms have been well-controlled so far with medication until days ago, but she is concerned that he may not be taking his medication as prescribed and taking alcohol. He does not have an appointment with his psychiatrist at [facility] until April 01 in because the symptoms have been worsening this prompted evaluation today. He does endorse increasing alcohol use over the past few weeks as well. He admits to occasional marijuana use. Denies any suicidal or homicidal ideation. Patient is admitted under observation in the ER due to increased CPK and acute renal failure. He was adopted evaluation patient is found in his room, guarded, reticent, he says that he feels better, he says that he doesn't have a reason to be admitted psychiatrically. Patient says that he has been taking his medication on and off. He he says that he doesn't know the name of his medication or his psychiatrist, "ask my mother". No agitation, no aggressive behavior, no disorganization is evident at this moment. 02/18/2017: On psychiatric evaluation today patient is found pacing in the unit, patient says that he feels better, he says that he has been walking in cycles, "looking for power", he seems to be disorganized, loosening of associations, bizarre and delusional ideas, paranoid against staff, however no agitation, no aggressive behavior, and patient seems to be redirectable. Patient admits that he has been taking his medication on and off, using alcohol and marijuana frequent. Today his color level is 52. Patient seems to be internally stimulated, but he denies visual and auditory hallucinations, he denies suicidal and homicidal ideation. Patient is oriented 3, no attention deficit, no fluctuation of consciousness present. Tobacco Use In Past 30 Days: 5 or More Cigarettes/Day Alcohol Use: Never Hospital Course Patient was admitted in the psychiatric kline due to disorganized behavior, paranoia and noncompliant with medications. Immediate safety measures were taken. Patient was placed in regular observation. Psychosocial and psychiatric assessment performed. She was reinitiated in outpatient psychiatric medications, individual and group psychotherapy. Patient showed almost an immediate positive effect from medications. He reached baseline very quickly. We met with his mother by phone, she was able to confirm the patient was at baseline and she doesn't have any safety concerns about him. We also contacted his outpatient mental health provider who agree with discharge plan, and served as a collateral informer of his medication in future appointments. Results Blood Pressure 106 / 57 Vital Signs Date Time Temp Pulse Resp B/P Pulse Ox O2 Delivery O2 Flow Rate FiO2 03/22/17 05:36 98.2 54 16 106/57 99 Reviewed Summary of Procedures No procedures done Pending results at discharge: No Medications # of Antipsychotic meds at D/C: 2 Appropriate >1 Antipsych meds?: 2 Approp Antipsych med options 1 - Minimum of three failed multiple trials of monotherapy. 2 - Documented plan to taper to monotherapy due to previous use of multiple meds OR cross-taper in progress at D/C. 3 - Documentation of augmentation of Clozapine. 4 - Justification other than those listed in allowable values 1-3, document here : Discharge Discharge Date: Mar 22, 2017 Discharge Diagnosis: (1) Schizophrenia, paranoid Diagnosis: Principal ICD Code: F20.0 Mental Status Exam at Disch -Americans age appearing man, questionable, [facility], age appearing, poor dental hygiene, he is calm, cooperative and pleasant. His his speech is fluent and spontaneous, his mood is euthymic, his affect is congruent with mood. His thought process is concrete, linear, goal-directed. His thought content is devoid of suicidal ideation, homicidal ideation, visual and auditory hallucinations, paranoia, delusions and ideas of reference. His judgment is fair, impulse control is good, insight is fair, his oriented 3, with good attention span, no gross cognitive present. Pt Condition on Discharge: Stable Discharge Disposition: Discharge Home Discharge Instructions Diet Instructions: As Tolerated, No Restrictions, Heart Healthy Diet Activities you can perform: Regular-No Restrictions Scheduled Appointment: Luis F Holland Discharge Time > 30 minutes Discharge/Advance Care Plan Health Problems: (1) Schizophrenia, paranoid Goals to promote your health * To prevent worsening of your condition and complications * To maintain your health at the optimal level Directions to meet your goals Take your medications as prescribed Follow your dietary instruction Follow activity as directed Keep your appointments as scheduled Take your immunizations and boosters as scheduled If your symptoms worsen call your PCP, if no PCP go to Urgent Care Center or Emergency Room For 22/04 questions related to your inpatient stay or results of tests pending at discharge, please contact Dr. Raj Adler at Smoking is Dangerous to Your Health. Avoid second hand smoking Raj Adler MD Mar 22, 2017 12:10
== END 2017-03-22 12:30 | disposition home or self-care (01) | DRG 885 ==
LOC: H4EA 13:03
PROVIDERS: ADMIT Psychiatry & Neurology Psychiatry; ATTEND Psychiatry & Neurology Psychiatry
DX: F20.0 Paranoid schizophrenia (principal); N17.9 Acute kidney failure, unspecified; M62.82 Rhabdomyolysis; Z91.14 Patient's other noncompliance with medication regimen; F12.90 Cannabis use, unspecified, uncomplicated; F94.0 Selective mutism; J45.909 Unspecified asthma, uncomplicated; Z79.899 Other long term (current) drug therapy; Z87.891 Personal history of nicotine dependence; F41.9 Anxiety disorder, unspecified; F32.9 Major depressive disorder, single episode, unspecified

== ENCOUNTER 2017-11-21 08:47 | Emergency (ER) | payer MEDICARE, OTHER ==
[~2017-11-21 08:47] MED LIST changes: -BENZ0.5T PO; -BENZ1 PO; -BENZ1TAB PO; +Benztropine PO; -FLUP125P IM; -RISP.5 PO; -RISP4TAB41 PO
[2017-11-21 08:48] VITALS: BP 104/71; PULSE 58; RESP 18; TEMP 98.4; O2SAT 99
== END 2017-11-21 08:55 | disposition left against medical advice (07) ==
LOC: NED 08:47
DX: F99 Mental disorder, not otherwise specified (principal)
CPT/HCPCS: 99281

== ENCOUNTER 2017-11-22 19:09 | Emergency (ER) | payer MEDICARE, OTHER ==
[2017-11-22 19:10] VITALS: BP 116/72; PULSE 86; RESP 16; TEMP 98.5; O2SAT 95
== END 2017-11-22 19:45 | disposition left against medical advice (07) ==
LOC: NED 19:09
DX: Z00.00 Encounter for general adult medical examination without abnormal findings (principal); Z53.21 Procedure and treatment not carried out due to patient leaving prior to being seen by health care provider
CPT/HCPCS: 99281

== ENCOUNTER 2017-11-30 16:32 | Inpatient (IN) | payer MEDICARE, OTHER ==
[~2017-11-30] VITALS: Ht 175.3 cm; Wt 65.8 kg
[2017-11-30 16:39] VITALS: BP 120/72; PULSE 55; RESP 16; TEMP 98; O2SAT 100
[2017-11-30 17:37] VITALS: BP 133/78; PULSE 72; RESP 18; TEMP 98.7; O2SAT 97
[2017-11-30] MEDS ORDERED: LORazepam 2 MG TAB PO PRN (18:30)
[2017-11-30] MEDS ORDERED: LORazepam 1 MG TAB PO PRN (18:30)
[2017-11-30] MEDS ORDERED: HALOPERIDOL LACTATE 5 MG/ML AMP IM ONE (18:30)
[2017-11-30] MEDS ORDERED: FLUMAZENIL 0.5 MG/5 ML VIAL IV PUSH PRN (18:30)
[2017-11-30] MEDS ORDERED: LORazepam 2 MG/ML VIAL IV PUSH PRN ×4 (18:30)
[2017-11-30] MEDS ORDERED: LORazepam 2 MG/ML VIAL IM ONE (18:30)
--- NOTE | 2017-11-30 18:34 | PD ---
HPI Chief Complaint: Psychiatric Symptoms Time Seen by Provider: 18:27 Travel History International Travel<30 days: No Contact w/Intl Traveler<30days: No Traveled to known affect area: No History of Present Illness HPI 32-year-old -[place] male with history of schizophrenia and alcohol abuse, was dropped off by his mother at the waiting room entrance. Patient was brought to J pod, and I was asked to evaluate him. Patient appears intoxicated as well as perhaps psychotic with very pressured speech which does not make sense. He appears somewhat threatening and uncooperative. He is not a good historian. He does however deny any significant pain. He has no known drug allergies. PFS Past Medical History Medical History: Unable to Obtain Anxiety: Yes Depression: Yes Heart Rhythm Problems: No Chest Pain: No Congestive Heart Failure: No Diminished Hearing: No Endocrine: No Gastrointestinal Disorders: No Genitourinary: No Immune Disorder: No Inguinal Hernia: Yes Implanted Vascular Access Dvce: No Musculoskeletal: No Neurologic: No Psychiatric: Yes Reproductive: No Respiratory: No Schizophrenia: Yes (PARANOID TYPE) PNEUMOCCOCAL Vaccine (Year): 2 Past Surgical History Abdominal Surgery: Yes (INGUINAL HERNIA RIGHT) Genitourinary Surgery: Yes (INGUINAL HERNIA REPAIR) Other Surgery: Yes (SEE E.D. REPORT) Social History Alcohol Use: Yes Tobacco Use: Yes Substance Use: Yes Allergies-Medications (Allergen,Severity, Reaction): Coded Allergies: No Known Allergies (Verified , 03/19/17) Reported Meds & Prescriptions Reported Meds & Active Scripts Active Risperdal (Risperidone) 1 Mg Tab 3 Mg PO Q12HR Depakote ER (Divalproex Sodium) 500 Mg Daniele 500 Mg PO BID [Benztropine] 1 MG Tab 1 Mg PO BID Review of Systems ROS Limitations: Clinical Condition, Intoxication, Psychotic Physical Exam Exam Limitations: Intoxication, Uncooperative, Psychotic Narrative GENERAL: Patient is intoxicated and has pressured speech. SKIN: Warm and dry. Normal color. Normal turgor. No obvious signs of trauma. HEAD: Atraumatic. Normocephalic. EYES: Pupils equal and round. No scleral icterus. No injection or drainage. ENT: No nasal bleeding or discharge. Mucous membranes pink and moist. Pharynx is clear. Airways patent NECK: Trachea midline. Supple and nontender. CARDIOVASCULAR: Regular rate and rhythm. RESPIRATORY: No accessory muscle use. Clear to auscultation. Breath sounds equal bilaterally. GASTROINTESTINAL: Abdomen soft, non-tender, nondistended. Hepatic and splenic margins not palpable. MUSCULOSKELETAL: Extremities without clubbing, cyanosis, or edema. No obvious deformities. NEUROLOGICAL: Awake and alert. No obvious cranial nerve deficits. Motor grossly within normal limits. Five out of 5 muscle strength in the arms and legs. Normal speech. Data Data Last Documented VS Vital Signs Date Time Temp Pulse Resp B/P (MAP) Pulse Ox O2 Delivery O2 Flow Rate FiO2 11/30/17 17:37 98.7 72 18 133/78 (96) 97 Room Air Orders Orders Complete Blood Count With Diff (11/30/17 18:30) Comprehensive Metabolic Panel (11/30/17 18:30) Thyroid Stimulating Hormone (11/30/17 18:30) Urinalysis - C+S If Indicated (11/30/17 18:30) Psych Screen (11/30/17 18:30) Haloperidol Inj (Haldol Inj) (11/30/17 18:30) Lorazepam Inj (Ativan Inj) (11/30/17 18:30) Drug Screen, Random Urine (11/30/17 18:30) Alcohol (Ethanol) (11/30/17 18:30) Alcohol Withdrawal [facility] [id number] (11/30/17 18:30) Flumazenil Inj (Romazicon Inj) (11/30/17 18:30) Lorazepam (Ativan) (11/30/17 18:30) Lorazepam Inj (Ativan Inj) (11/30/17 18:30) Lorazepam (Ativan) (11/30/17 18:30) Lorazepam Inj (Ativan Inj) (11/30/17 18:30) Lorazepam Inj (Ativan Inj) (11/30/17 18:30) Lorazepam Inj (Ativan Inj) (11/30/17 18:30) MDM Medical Decision Making Medical Screen Exam Complete: Yes Emergency Medical Condition: Yes Medical Record Reviewed: Yes Differential Diagnosis Alcohol intoxication. Psychotic symptoms. Avila act Narrative Course After interviewing the patient had Avila acted and based on my exam and physical. Psychiatric labs were ordered as per protocol. Patient is given 1 mg lorazepam IM Patient is given 5 mg Haldol IM Patient is placed on the CIWA protocol. Psych screen is ordered. Condition: Stable Maurice Estevez Nov 30, 2017 18:34
[2017-11-30] MEDS ORDERED: BENZ0.5T PO (20:11)
[2017-11-30 21:09] LABS: AUTOMATED NEUTROPHIL # 0.8 TH/MM3 (1.8-7.7); EOSINOPHIL # 0.2 TH/MM3 (0-0.4); HEMOGLOBIN 13.6 GM/DL (13.0-17.0); LYMPHOCYTE # 1.2 TH/MM3 (1.0-4.8); MEAN CELL VOLUME 88.6 FL (80.0-100.0); MEAN CORPUSCULAR HEMOGLOBIN 30.3 PG (27.0-34.0); MEAN CORPUSCULAR HGB CONC 34.1 % (32.0-36.0); MEAN PLATELET VOLUME 9.4 FL (7.0-11.0); MONO % 19.4 % (0.0-8.0); MONOCYTE # 0.5 TH/MM3 (0-0.9); NEUT % 30.6 % (16.0-70.0); PLATELET COUNT 98 TH/MM3 (150-450); RED BLOOD COUNT 4.51 MIL/MM3 (4.50-5.90); RED CELL DISTRIBUTION WIDTH 13.7 % (11.6-17.2); WHITE BLOOD COUNT 2.7 TH/MM3 (4.0-11.0)
[2017-11-30 21:42] LABS: BASOPHILS 2 % (0-2); LYMPHOCYTES 46 % (9-44); MONOCYTES 13 % (0-8); NEUTROPHIL # MANUAL DIFF 0.8 TH/MM3 (1.8-7.7); POLYS (SEG NEUTROPHILS) 29 % (16-70)
[2017-11-30 22:31] VITALS: BP 88/53; PULSE 50; RESP 19; TEMP 98.2; O2SAT 95
[2017-11-30 22:40] LABS: ALBUMIN 3.1 GM/DL (3.4-5.0); AST (GOT) 29 U/L (15-37); BICARBONATE 24.7 MEQ/L (21.0-32.0); BLOOD UREA NITROGEN 3 MG/DL (7-18); CALCIUM 8.5 MG/DL (8.5-10.1); CHLORIDE 102 MEQ/L (98-107); CREATININE 0.88 MG/DL (0.60-1.30); GLOMERULAR FILTRATION RATE 121 ML/MIN (>89); GLUCOSE,RANDOM 100 MG/DL (74-106); SODIUM (NA) 132 MEQ/L (136-145)
[2017-11-30 22:49] LABS: ALKALINE PHOSPHATASE 48 U/L (45-117); ALT (GPT) 16 U/L (12-78); TOTAL BILIRUBIN ADULT 0.3 MG/DL (0.2-1.0)
[2017-11-30 23:51] VITALS: BP 110/80
[2017-12-01 02:34] LABS: BILIRUBIN, URINE NEG (NEG); BLOOD, URINE NEG (NEG); GLUCOSE,URINE NEG (NEG); KETONE, URINE NEG (NEG); NITRITE,URINE NEG (NEG); PH, URINE 8.5 (5.0-8.5); SQUAMOUS EPITHELIAL CELL URINE <1 /hpf (0-5); URINE COLOR LIGHT-YELLOW (YELLW/STRAW); URINE LEUKOCYTE ESTERASE NEG (NEG)
[2017-12-01 03:30] VITALS: BP 121/72; PULSE 50; RESP 18; TEMP 98.6; O2SAT 100
[2017-12-01 06:39] VITALS: BP 112/64; PULSE 55; RESP 17; TEMP 98.6; O2SAT 97
[2017-12-01] MEDS ORDERED: LORazepam 2 MG/ML VIAL IM PRN ×2 (07:15)
[2017-12-01] MEDS ORDERED: ACETAMINOPHEN 325 MG TAB PO PRN (07:15)
[2017-12-01] MEDS ORDERED: ALUMINUM/MAGNESIUM/SIMETH 30 ML CUP PO PRN (07:15)
[2017-12-01] MEDS ORDERED: LORazepam 2 MG TAB PO PRN (07:15)
[2017-12-01] MEDS ORDERED: LORazepam 2 MG/ML VIAL IV PUSH PRN ×4 (07:15)
[2017-12-01] MEDS ORDERED: MAGNESIUM HYDROXIDE SUSP 30 ML CUP PO PRN (07:15)
[2017-12-01] MEDS ORDERED: FLUMAZENIL 0.5 MG/5 ML VIAL IV PUSH PRN (07:15)
[2017-12-01] MEDS ORDERED: LORazepam 1 MG TAB PO PRN (07:15)
[2017-12-01] MEDS ORDERED: LORazepam 0.5 MG TAB PO PRN (07:15)
[2017-12-01 08:30] VITALS: BP 178/75; PULSE 140; RESP 18; TEMP 97.4; O2SAT 100
[2017-12-01] MEDS: NICOTINE 21 MG/24 HR PATCH T-DERMAL SCH (09:00)
[2017-12-01] MEDS: risperiDONE 3 MG TAB PO SCH ×2 (12:28→20:47)
[2017-12-01] MEDS: DIVALPROEX SODIUM E.R. 500 MG TAB PO SCH ×2 (12:29→20:47)
[2017-12-01] MEDS: BENZTROPINE MESYLATE 1 MG TAB PO SCH ×2 (12:30→20:47)
[2017-12-02 05:21] VITALS: BP 104/63; PULSE 63; RESP 16; TEMP 97.6; O2SAT 100
[2017-12-02] MEDS: BENZTROPINE MESYLATE 1 MG TAB PO SCH (08:34)
[2017-12-02] MEDS: DIVALPROEX SODIUM E.R. 500 MG TAB PO SCH (08:34)
[2017-12-02] MEDS: risperiDONE 3 MG TAB PO SCH (08:34)
[2017-12-02] MEDS: NICOTINE 21 MG/24 HR PATCH T-DERMAL SCH (08:35)
[2017-12-02 09:41] LABS: BICARBONATE 28.1 MEQ/L (21.0-32.0); BLOOD UREA NITROGEN 5 MG/DL (7-18); CALCIUM 8.7 MG/DL (8.5-10.1); CHLORIDE 98 MEQ/L (98-107); CREATININE 0.89 MG/DL (0.60-1.30); GLOMERULAR FILTRATION RATE 119 ML/MIN (>89); GLUCOSE,RANDOM 109 MG/DL (74-106); SODIUM (NA) 134 MEQ/L (136-145)
[2017-12-02 09:43] LABS: CHOLESTEROL 108 MG/DL (120-200); TRIGLYCERIDES 69 MG/DL (42-150)
[2017-12-02 09:45] LABS: CHOLESTEROL/ HDL RATIO 1.43 RATIO; HDL CHOLESTEROL 75.3 MG/DL (40.0-60.0); LDL CHOLESTEROL 19 MG/DL (0-99)
--- NOTE | 2017-12-02 13:13 | HHI.HP ---
Provisional Diagnosis Admission Date Dec 01, 2017 at 07:06 [place] I. 1. Schizophrenia, disorganized type, acute exacerbation 2. History of alcohol use issues [place] II. Deferred Certification of Person's Competence To Provide Express and Informed Consent I have personally examined Danny Mcmanus , a person being served at [facility] on, Dec 02, 2017 13:13. Express and informed consent means consent voluntarily given in writing, by a competent person, after sufficient explanation and disclosure of the subject matter involved to enable the person to make a knowing and willful decision without any element of force, fraud, deceit, duress, or other form of constraint or coercion. This person is 18 years of age or older, is not now known to be incompetent to consent to treatment with a guardian advocate, and does not have a health care surrogate or proxy currently making medical treatment decisions. I have found this person to be one of the following: [] Competent to provide express and informed consent, as defined above, for voluntary admission to this facility and is competent to provide express and informed consent for treatment. He/she has the consistent capacity to make well reasoned, willful, and knowing decisions concerning his or her medical or mental health treatment. The person fully and consistently understands the purpose of the admission for examination/placement and is fully capable of personally exercising all rights assured [place] [x] Incompetent to provide express and informed consent to voluntary admission, and this is incompetent to provide express and informed consent to treatment. The person must be transferred to involuntary status and a petition for a guardian advocate filed with the Circuit Court. [] Refusing to provide express and informed consent to voluntary admission but is competent to provide express and informed consent for treatment. The person must be discharged or transferred to involuntary status. Form shall be completed within 24 hours of a person's arrival at the receiving facility and filed in the clinical record of each person: 1. Admitted on a voluntary basis 2. Permitted to provide express and informed consent to his/her own treatment 3. Allowed to transfer from involuntary to voluntary status 4. Prior to permitting a person to consent to his or her own treatment after having been previously found incompetent to consent to treatment. History of Present Illness Capacity: Lacks Capacity Psych Chief Complaint: Psychosis HPI Mr. Mcmanus is a 32-year-old male with a history of schizophrenia who was dropped off at the ED by his mother for psychiatric evaluation. There was some concern that he may have been intoxicated although alcohol level and urine toxicology were both negative. Patient was Avila acted by the ED provider. Patient is well known to the psychiatric service here from multiple previous psychiatric admissions. He was admitted most recently under Dr. Adler in February 2017. Patient seen and examined with nurse. Chart reviewed. Case discussed with nursing staff. On my examination today, the patient presents with prominent thought disorganization. His statements are disconnected from one another, and it is difficult to make sense of his narrative. He does seem to recognize me from our previous psychiatric contacts. He says "I pay people with words. [place] handshake. I got everything straightened out. I was running. A white person through the paper. 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 He denies any audiovisual hallucinations. He exhibits some echopraxia. No harley delusional material. He is disheveled and there does appear to be a self-care deficit. Psychiatric interview is limited because of the patient's current degree of psychiatric decompensation. No acute physical complaints. I am unable to obtain any meaningful past psychiatric, family, chemical dependency or social history from the patient on account of his degree of psychiatric decompensation. I obtained collateral information from the patient's mother Naima. She notes that the patient has his own place, although she has been trying to get him to stay with her as he has been decompensating. She suspects that he has been medication nonadherent for about the last month and a half. She notes that he has previously been on long-acting injectable antipsychotics but they seemed to stop working. He has been on Haldol, Prolixin and Risperdal/paliperidone in the past. She does note that the patient has a history of alcohol use issues. She is willing to act as his healthcare surrogate and is in agreement with the treatment plan as outlined below. Review of Systems ROS Limitations: Psychotic, Poor Historian Except as stated in HPI: all other systems reviewed are Neg Past Family Social History Coded Allergies: No Known Allergies (Verified , 03/19/17) Past Medical History See EMR Active Scripts Risperidone (Risperdal) 1 Mg Tab, 3 MG PO Q12HR for health, #60 TAB Prov:Raj Adler MD 03/22/17 Divalproex ER (Depakote ER) 500 Mg Daniele, 500 MG PO BID for health, #60 TAB Prov:Raj Adler MD 03/22/17 Reported Medications Benztropine (Benztropine) 0.5 Mg Tab, 0.5 MG PO BID for MENTAL HEALTH, #60 TAB 0 Refills 11/30/17 Discontinued Scripts [Benztropine Mesylate] 1 MG TAB No Conflict Check, 1 MG PO BID for health, TAB Prov:Raj Adler MD 03/22/17 Current Medications Medications (Trade) Dose Ordered Sig/Nelson Route Start Time Stop Time Status Last Admin (Romazicon Inj) 0.2 mg Q1M PRN IV PUSH 11/30/17 18:30 (Ativan) 1 mg Q4H PRN PO 11/30/17 18:30 12/01/17 20:47 (Ativan Inj) 1 mg Q4H PRN IV PUSH 11/30/17 18:30 (Ativan) 2 mg Q2H PRN PO 11/30/17 18:30 (Ativan Inj) 2 mg Q2H PRN IV PUSH 11/30/17 18:30 (Ativan Inj) 2 mg Q1H PRN IV PUSH 11/30/17 18:30 (Ativan Inj) 2 mg Q15M PRN IV PUSH 11/30/17 18:30 (Ativan) 1 mg Q6H PRN PO 12/01/17 07:15 (Ativan Inj) 1 mg Q6H PRN IM 12/01/17 07:15 (Ativan) 0.5 mg Q12H PRN PO 12/01/17 07:15 (Ativan Inj) 0.5 mg Q12H PRN IM 12/01/17 07:15 (Tylenol) 650 mg Q4H PRN PO 12/01/17 07:15 (Milk Of Magnesia Liq) 30 ml DAILY PRN PO 12/01/17 07:15 (Mag-Al Plus Susp Liq) 30 ml Q6H PRN PO 12/01/17 07:15 (Habitrol 21 Mg Patch.24 Hr) 1 patch DAILY T-DERMAL 12/01/17 09:00 (Romazicon Inj) 0.2 mg Q1M PRN IV PUSH 12/01/17 07:15 (Ativan) 1 mg Q4H PRN PO 12/01/17 07:15 (Ativan Inj) 1 mg Q4H PRN IV PUSH 12/01/17 07:15 (Ativan) 2 mg Q2H PRN PO 12/01/17 07:15 (Ativan Inj) 2 mg Q2H PRN IV PUSH 12/01/17 07:15 (Ativan Inj) 2 mg Q1H PRN IV PUSH 12/01/17 07:15 (Ativan Inj) 2 mg Q15M PRN IV PUSH 12/01/17 07:15 (Cogentin) 0.5 mg BID PO 12/01/17 09:00 12/02/17 08:34 (Depakote Er) 500 mg BID PO 12/01/17 09:00 12/02/17 08:34 (risperDAL) 3 mg Q12HR PO 12/01/17 09:00 12/02/17 08:34 Patient's Strengths (min. 2) In a monitored setting. Supportive mother. Physical Exam Physical exam was completed by ED provider. On my examination today, the patient appears to be in no acute physical distress. He is fairly disheveled and does not presently appear to be maintaining basic hygiene. Labs and vitals reviewed: Vital Signs Vital Signs Date Time Temp Pulse Resp B/P (MAP) Pulse Ox O2 Delivery O2 Flow Rate FiO2 12/02/17 05:21 97.6 63 16 104/63 (77) 100 Manual Cuff/Auscultation 12/01/17 06:39 Room Air Lab Results Item Value Date Time White Blood Count 2.7 TH/MM3 L 11/30/172057 Hemoglobin 13.6 GM/DL 11/30/172057 Platelet Count 98 TH/MM3 L 11/30/172057 Sodium Level 134 MEQ/L L 12/02/17814 Potassium Level 4.0 MEQ/L 12/02/17814 Chloride Level 98 MEQ/L 12/02/1715 Carbon Dioxide Level 28.1 MEQ/L 12/02/1715 Blood Urea Nitrogen 5 MG/DL L 12/02/17 0815 Creatinine 0.89 MG/DL 12/02/17 0815 Aspartate Amino Transf (AST/SGOT) 29 U/L 11/30/17 2210 Alanine Aminotransferase (ALT/SGPT) 16 U/L 11/30/17 2210 Alkaline Phosphatase 48 U/L 11/30/17 2210 Thyroid Stimulating Hormone 3rd Gen 3.910 uIU/ML H 11/30/17 221 Urine Barbiturates Screen NEG 12/01/17 0050 Urine Opiates Screen NEG 12/01/17 0050 Urine Amphetamines Screen NEG 12/01/17 0050 Urine Cocaine Screen NEG 12/01/17 0050 Urine Benzodiazepines Screen NEG 12/01/17 0050 Urine Cannabinoids Screen NEG 12/01/17 0050 Ethyl Alcohol Level LESS THAN 3 MG/DL 11/30/172209 Leukopenia and thrombocytopenia noted. Mild hyponatremia noted. TSH mildly elevated. Mental Status Examination Appearance: Disheveled Consciousness: Alert Orientation: Person, Place (at least) Motor Activity: Other (no motor abnormalities noted) Speech: Unremarkable Language: Other (rambling) Fund of Knowledge: Inadequate Attention and Concentration: Easily Distracted Memory: Impaired (psychosis interferes) Mood: Good Affect: Euthymic Thought Process & Associations: Disorganized Thought Content: Bizarre thinking Hallucination Type: None Delusion Type: None Suicidal Ideation: No Suicidal Plan: No Suicidal Intention: No Homicidal Ideation: No Homicidal Plan: No Homicidal Intention: No Insight: Poor Judgment: Poor Assessment & Plan Problem List: (1) Disorganized schizophrenia ICD Codes: F20.1 - Disorganized schizophrenia Assessment & Plan 32-year-old male with psychiatric history as detailed above presently admitted to the inpatient psychiatric unit under a Avila act. On my examination today, the patient exhibits prominent thought disorganization and appears to be exhibiting a self-care deficit in the setting of his primary psychotic illness. Medication nonadherence is suspected and reported by his mother. Patient has reportedly suffered tachyphylaxis from long-acting injectable medications per mother. We discussed initiation of an antipsychotic which the patient has not previously received in hopes that this will be more efficacious, and mother is agreeable and her role as healthcare surrogate to such a trial. Patient requires psychiatric hospitalization at this time for safety, observation and stabilization. Admit inpatient. Involuntary status. I've completed first opinion. Consult for second opinion. Request healthcare surrogate and guardian advocate. Check a CBC because of leukopenia and decreased ANC. I will hold off on starting an antipsychotic until we ensure that counts are stable or improving. I have obtained consent from patient's mother for a trial of Abilify. I will consolidate the patient's Depakote ER to once daily dosing in hopes of improving adherence. Check BMP and free T4. Consulted the hospitalist. Ativan as needed for anxiety, Cogentin as needed for EPS, Benadryl as needed for sleep. R/B/A for medications discussed with mother. Vitals every shift. Counselor to see. Disposition planning. Estimated length of stay: 7-9 days. Discharge Planning Pending psychiatric stabilization. Request HC Surrog/Guard Advoc?: Yes Wally Casarez MD Dec 02, 2017 13:13
[2017-12-02] MEDS: LORazepam 1 MG TAB PO PRN (15:21)
[2017-12-02] MEDS ORDERED: BENZTROPINE MESYLATE 1 MG TAB PO PRN (16:30)
[2017-12-02] MEDS ORDERED: BENZTROPINE MESYLATE 2 MG/2 ML VIAL IM PRN (16:30)
[2017-12-02 16:36] LABS: HEMOGLOBIN A1C 6.1 % (4.3-6.0)
[2017-12-02 17:35] VITALS: BP 99/58; PULSE 64; RESP 18; TEMP 97.4; O2SAT 99
[2017-12-02] MEDS ORDERED: DIVALPROEX SODIUM E.R. 500 MG TAB PO SCH (21:00)
[2017-12-02 21:30] LABS: HEMATOCRIT 39.5 % (39.0-51.0); HEMOGLOBIN 13.4 GM/DL (13.0-17.0); RED BLOOD COUNT 4.41 MIL/MM3 (4.50-5.90); WHITE BLOOD COUNT 3.5 TH/MM3 (4.0-11.0)
[2017-12-02 21:31] LABS: AUTOMATED NEUTROPHIL # 1.1 TH/MM3 (1.8-7.7); BASOPHIL # 0.1 TH/MM3 (0-0.2); BASOPHIL % 1.4 % (0.0-2.0); EOSINOPHIL # 0.2 TH/MM3 (0-0.4); EOSINOPHIL % 6.9 % (0.0-4.0); LYMPH % 42.1 % (9.0-44.0); LYMPHOCYTE # 1.5 TH/MM3 (1.0-4.8); MEAN CELL VOLUME 89.6 FL (80.0-100.0); MEAN CORPUSCULAR HEMOGLOBIN 30.5 PG (27.0-34.0); MEAN PLATELET VOLUME 9.8 FL (7.0-11.0); MONO % 17.4 % (0.0-8.0); MONOCYTE # 0.6 TH/MM3 (0-0.9); NEUT % 32.2 % (16.0-70.0); PLATELET COUNT 122 TH/MM3 (150-450); RED CELL DISTRIBUTION WIDTH 13.6 % (11.6-17.2)
[2017-12-03 05:52] VITALS: BP 112/65; PULSE 70; RESP 18; TEMP 98
[2017-12-03] MEDS: DIVALPROEX SODIUM E.R. 500 MG TAB PO SCH (08:24)
[2017-12-03] MEDS: NICOTINE 21 MG/24 HR PATCH T-DERMAL SCH (08:24)
--- NOTE | 2017-12-03 08:51 | HHI.PYPN ---
Subjective Chief Complaint: Psychosis Remarks Patient seen and examined with nurse. Chart reviewed. Case discussed with nursing staff. Patient noted to be disorganized and rambling per nursing staff. Case discussed in treatment team. On my examination today, the patient remains fairly disheveled. Thought process disorganized. The patient is fairly irritable and unable to tolerate extended interview. I try to discuss patient's medication regimen with him but the patient says "I ain't telling you ! It's a secret." Paranoia and internal stimulation noted. No side effects from medications. No physical complaints. Review of Systems ROS Limitations: Psychotic, Poor Historian Except as stated in HPI: all other systems reviewed are Neg Mental Status Examination Appearance: Disheveled Consciousness: Alert Orientation: Person, Place (at least) Motor Activity: Other (no abnormal motor movements noted) Speech: Unremarkable Language: Other (rambling) Fund of Knowledge: Inadequate Attention and Concentration: Easily Distracted Memory: Impaired (psychosis interferes) Mood: Irritable Affect: Irritable Thought Process & Associations: Disorganized Thought Content: Bizarre thinking Hallucination Type: Other (internally stimulated) Delusion Type: Paranoid Suicidal Ideation: No Suicidal Plan: No Suicidal Intention: No Homicidal Ideation: No Homicidal Plan: No Homicidal Intention: No Insight: Poor Judgment: Poor Results Labs Test 12/02/17 20:50 White Blood Count 3.5 TH/MM3 Red Blood Count 4.41 MIL/MM3 Hemoglobin 13.4 GM/DL Hematocrit 39.5 % Mean Corpuscular Volume 89.6 FL Mean Corpuscular Hemoglobin 30.5 PG Mean Corpuscular Hemoglobin Concent 34.0 % Red Cell Distribution Width 13.6 % Platelet Count 122 TH/MM3 Mean Platelet Volume 9.8 FL Neutrophils (%) (Auto) 32.2 % Lymphocytes (%) (Auto) 42.1 % Monocytes (%) (Auto) 17.4 % Eosinophils (%) (Auto) 6.9 % Basophils (%) (Auto) 1.4 % Neutrophils # (Auto) 1.1 TH/MM3 Lymphocytes # (Auto) 1.5 TH/MM3 Monocytes # (Auto) 0.6 TH/MM3 Eosinophils # (Auto) 0.2 TH/MM3 Basophils # (Auto) 0.1 TH/MM3 CBC Comment DIFF FINAL Differential Comment Free Thyroxine 0.79 NG/DL Labs reviewed. Leukopenia/granulocytopenia improving along with thrombocytopenia. Free T4 is within normal limits. Vitals/IOs Vital Signs Date Time Temp Pulse Resp B/P (MAP) Pulse Ox O2 Delivery O2 Flow Rate FiO2 12/03/17 05:52 98.0 70 18 112/65 (81) 12/02/17 17:35 99 12/01/17 06:39 Room Air Assessment & Plan Problem List: (1) Disorganized schizophrenia ICD Codes: F20.1 - Disorganized schizophrenia Assessment & Plan Start Abilify 10mg daily to target psychosis with plans to titrate to effect. Trend daily CBCs to monitor blood dyscrasias. Follow up hospitalist consultation. Given patient's psychosis and irritability, likely would benefit from transfer to high acuity unit until more stable. Transfer to 2700 unit. OT consult. Continue other medications and care as ordered. Justification for Cont. Inpt. Med changes. Impairment in reality construction. Complicating condition. High risk for decompensation and less restrictive environment. Discharge Planning Pending psychiatric stabilization. Request HC Surrog/Guard Advoc?: Yes Wally Casarez MD Dec 03, 2017 08:51
--- NOTE | 2017-12-03 11:34 | PD.TTN ---
Patient Problems 1. Discharge planning 2. Medication compliance 3. Knowledge deficit 4. Lack of coping skills Progress Toward Goals Provider Present: Dr. Adrianna Casarez Provider Input: CBC Abnormalities, start on Abilify when blood issue us resolved. Psychiatric Counselors Present: Angel Dobbins Jr., [facility], Anita Aburto, [facility] , Bety Tony, [facility] Psych Therapist Input: have not sat w/ patient since admission. Group Spec/RT/OT/MENDOZA Present: Nayeli Bullock, JOSE MIGUEL, Maurice Correa, OT Group Spec/RT/OT/MENDOZA Input: Isolates to self, guarded, needs alot of encouragement to attend the group activities. Nayeli Bullock Dec 03, 2017 11:34
--- NOTE | 2017-12-03 13:13 | PD.PSY.CON ---
Provisional Diagnosis Admission Date Dec 01, 2017 at 07:06 [place] I. 1. Schizophrenia, disorganized type, acute exacerbation 2. History of alcohol use issues [place] II. Deferred History of Present Illness Service Psychiatry Consult Requested By Psychiatry Reason for Consult Second opinion Primary Care Physician No Primary Care Physician HPI Mr. Mcmanus is a 32-year-old male with a history of schizophrenia who was dropped off at the ED by his mother for psychiatric evaluation. There was some concern that he may have been intoxicated although alcohol level and urine toxicology were both negative. Patient was Avila acted by the ED provider. Patient is well known to the psychiatric service here from multiple previous psychiatric admissions. He was admitted most recently under Dr. Adler in February 2017.Patient seen and examined with nurse. Chart reviewed. Case discussed with nursing staff. On my examination today, the patient presents with prominent thought disorganization. His statements are disconnected from one another, and it is difficult to make sense of his narrative. He does seem to recognize me from our previous psychiatric contacts. He says "I pay people with words. [place] handshake. I got everything straightened out. I was running. A white person through the paper. 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 He denies any audiovisual hallucinations. He exhibits some echopraxia. No harley delusional material. He is disheveled and there does appear to be a self-care deficit. Psychiatric interview is limited because of the patient's current degree of psychiatric decompensation. No acute physical complaints. The patient is a 32 years old man, single, unemployed, with psychiatric history of schizophrenia, previous psychiatric hospitalizations, who was admitted this time this hospital due to disorganized behavior. He was consulted for second opinion. On psychiatric evaluation the patient is found sitting in her room alone in the recreational area of the unit. The patient is irritable, poorly cooperative, very disorganized. Patient reports that he feels very preoccupied because he has not been able to finish his college. He is that the reason he has not been able to finish college is because nobody has come to examining his blood. He also says that he needs to sign signs paper in [facility] because he wants to transfer to the [employer]. Patient seems to be very concerned and obsessive with college education, but at the same times he has harley flight of ideas or loosening of associations. He denies suicidal and homicidal ideation, he denies visual and auditory hallucinations. Past Family Social History Coded Allergies: No Known Allergies (Verified , 03/19/17) Active Scripts Risperidone (Risperdal) 1 Mg Tab, 3 MG PO Q12HR for health, #60 TAB Prov:Raj Adler MD 03/22/17 Divalproex ER (Depakote ER) 500 Mg Daniele, 500 MG PO BID for health, #60 TAB Prov:Raj Adler MD 03/22/17 Reported Medications Benztropine (Benztropine) 0.5 Mg Tab, 0.5 MG PO BID for MENTAL HEALTH, #60 TAB 0 Refills 11/30/17 Discontinued Scripts [Benztropine Mesylate] 1 MG TAB No Conflict Check, 1 MG PO BID for health, TAB Prov:Raj Adler MD 03/22/17 Current Medications Medications (Trade) Dose Ordered Sig/Nelson Route Start Time Stop Time Status Last Admin (Romazicon Inj) 0.2 mg Q1M PRN IV PUSH 11/30/17 18:30 (Ativan) 1 mg Q4H PRN PO 11/30/17 18:30 12/01/17 20:47 (Ativan Inj) 1 mg Q4H PRN IV PUSH 11/30/17 18:30 (Ativan) 2 mg Q2H PRN PO 11/30/17 18:30 (Ativan Inj) 2 mg Q2H PRN IV PUSH 11/30/17 18:30 (Ativan Inj) 2 mg Q1H PRN IV PUSH 11/30/17 18:30 (Ativan Inj) 2 mg Q15M PRN IV PUSH 11/30/17 18:30 (Ativan) 1 mg Q6H PRN PO 12/01/17 07:15 12/02/17 15:21 (Ativan Inj) 1 mg Q6H PRN IM 12/01/17 07:15 (Tylenol) 650 mg Q4H PRN PO 12/01/17 07:15 (Milk Of Magnesia Liq) 30 ml DAILY PRN PO 12/01/17 07:15 (Mag-Al Plus Susp Liq) 30 ml Q6H PRN PO 12/01/17 07:15 (Habitrol 21 Mg Patch.24 Hr) 1 patch DAILY T-DERMAL 12/01/17 09:00 (Depakote Er) 1,000 mg DAILY PO 12/03/17 09:00 12/03/17 08:24 (Cogentin) 1 mg Q12HR PRN PO 12/02/17 16:30 (Cogentin Inj) 1 mg Q12HR PRN IM 12/02/17 16:30 (Benadryl) 50 mg HS PRN PO 12/02/17 16:30 (Abilify) 10 mg DAILY PO 12/03/17 11:45 Patient's Strengths (min. 2) In a monitored setting. Supportive mother. Physical Exam Vital Signs Vital Signs Date Time Temp Pulse Resp B/P (MAP) Pulse Ox O2 Delivery O2 Flow Rate FiO2 12/03/17 05:52 98.0 70 18 112/65 (81) 12/02/17 17:35 99 12/01/17 06:39 Room Air Lab Results Test 12/02/17 20:50 White Blood Count 3.5 TH/MM3 Red Blood Count 4.41 MIL/MM3 Hemoglobin 13.4 GM/DL Hematocrit 39.5 % Mean Corpuscular Volume 89.6 FL Mean Corpuscular Hemoglobin 30.5 PG Mean Corpuscular Hemoglobin Concent 34.0 % Red Cell Distribution Width 13.6 % Platelet Count 122 TH/MM3 Mean Platelet Volume 9.8 FL Neutrophils (%) (Auto) 32.2 % Lymphocytes (%) (Auto) 42.1 % Monocytes (%) (Auto) 17.4 % Eosinophils (%) (Auto) 6.9 % Basophils (%) (Auto) 1.4 % Neutrophils # (Auto) 1.1 TH/MM3 Lymphocytes # (Auto) 1.5 TH/MM3 Monocytes # (Auto) 0.6 TH/MM3 Eosinophils # (Auto) 0.2 TH/MM3 Basophils # (Auto) 0.1 TH/MM3 CBC Comment DIFF FINAL Differential Comment Free Thyroxine 0.79 NG/DL Mental Status Examination Appearance: Disheveled Consciousness: Alert Orientation: Person, Place (at least) Motor Activity: Other (no abnormal motor movements noted) Speech: Unremarkable Language: Other (rambling) Fund of Knowledge: Inadequate Attention and Concentration: Easily Distracted Memory: Impaired (psychosis interferes) Mood: Irritable Affect: Irritable Thought Process & Associations: Disorganized Thought Content: Bizarre thinking Hallucination Type: Other (internally stimulated) Delusion Type: Paranoid Suicidal Ideation: No Suicidal Plan: No Suicidal Intention: No Homicidal Ideation: No Homicidal Plan: No Homicidal Intention: No Insight: Poor Judgment: Poor Assessment & Plan Problem List: (1) Disorganized schizophrenia ICD Codes: F20.1 - Disorganized schizophrenia Assessment & Plan: I have seen and examined this patient, reviewed the documentation, I agree and concur with Dr. Casarez assessment and plan. Consult appreciate it. Assessment & Plan Estimated LOS: days Request HC Surrog/Guard Advoc?: Yes Raj Adler MD Dec 03, 2017 13:13
--- NOTE | 2017-12-03 14:19 | PD.CONS ---
HPI Service [facility] Hospitalists Consult Requested By Psychiatry Reason for Consult Leukopenia, thrombocytopenia, hyponatremia Primary Care Physician No Primary Care Physician Diagnoses: History of Present Illness Mr. Mcmanus is a 32-year-old -[place] male with a history of schizophrenia and alcohol abuse who was admitted to psychiatric unit due to psychosis and intoxication. Patient was dropped off in front of the waiting room entrance by his mother. Hospitalist service was consulted due to hyponatremia, thrombocytopenia and leukopenia. At the time of this interview, patient appears to be somewhat agitated and delusional. When asked simple questions such as alcohol use, patient gets very worked up and agitated but not violent. He denies any chest pain, shortness of breath, fever or chills. He reports drinking alcohol but not too much. He reports smoking cigars. Illicit drugs. Review of Systems ROS Limitations: Altered Mental Status, Psychotic Except as stated in HPI: all other systems reviewed are Neg Past Family Social History Allergies: Coded Allergies: No Known Allergies (Verified , 03/19/17) Past Medical History Paranoid schizophrenia Alcohol abuse Past Surgical History Inguinal hernia repair Reported Medications Current Medications Medications (Trade) Dose Ordered Sig/Nelson Route Start Time Stop Time Status Last Admin (Romazicon Inj) 0.2 mg Q1M PRN IV PUSH 11/30/17 18:30 (Ativan) 1 mg Q4H PRN PO 11/30/17 18:30 12/01/17 20:47 (Ativan Inj) 1 mg Q4H PRN IV PUSH 11/30/17 18:30 (Ativan) 2 mg Q2H PRN PO 11/30/17 18:30 (Ativan Inj) 2 mg Q2H PRN IV PUSH 11/30/17 18:30 (Ativan Inj) 2 mg Q1H PRN IV PUSH 11/30/17 18:30 (Ativan Inj) 2 mg Q15M PRN IV PUSH 11/30/17 18:30 (Ativan) 1 mg Q6H PRN PO 12/01/17 07:15 12/02/17 15:21 (Ativan Inj) 1 mg Q6H PRN IM 12/01/17 07:15 (Tylenol) 650 mg Q4H PRN PO 12/01/17 07:15 (Milk Of Magnesia Liq) 30 ml DAILY PRN PO 3/4/18 07:15 (Mag-Al Plus Susp Liq) 30 ml Q6H PRN PO 12/01/17 07:15 (Habitrol 21 Mg Patch.24 Hr) 1 patch DAILY T-DERMAL 12/01/17 09:00 (Depakote Er) 1,000 mg DAILY PO 12/03/17 09:00 12/03/17 08:24 (Cogentin) 1 mg Q12HR PRN PO 12/02/17 16:30 (Cogentin Inj) 1 mg Q12HR PRN IM 12/02/17 16:30 (Benadryl) 50 mg HS PRN PO 12/02/17 16:30 (Abilify) 10 mg DAILY PO 12/03/17 11:45 12/03/17 15:47 Family History Patient denies any significant family history of heart disease, diabetes mellitus, hypertension Social History Patient reports smoking cigars and drinking alcohol but not too much. He denies using any illicit drugs. Physical Exam Vital Signs Vital Signs Date Time Temp Pulse Resp B/P (MAP) Pulse Ox O2 Delivery O2 Flow Rate FiO2 12/03/17 05:52 98.0 70 18 112/65 (81) 12/02/17 17:35 97.4 64 18 99/58 (72) 99 Physical Exam GENERAL: This is a well-nourished, well-developed patient, in no apparent distress. Somewhat delusional appearance, agitated. SKIN: No rashes, ecchymoses or lesions. Warm and dry. HEAD: Atraumatic. Normocephalic. No temporal or scalp tenderness. EYES: Pupils equal round and reactive. No injection or drainage. ENT: Nose without bleeding, purulent drainage or septal hematoma. Airway patent. NECK: Trachea midline. No lymphadenopathy. Supple, nontender, no meningeal signs. CARDIOVASCULAR: Regular rate and rhythm without murmurs, gallops, or rubs. No JVD. RESPIRATORY: Clear to auscultation. Breath sounds equal bilaterally. No wheezes , rales, or rhonchi. GASTROINTESTINAL: Abdomen soft, non-tender, nondistended. No guarding. MUSCULOSKELETAL: Extremities without clubbing, cyanosis, or edema. NEUROLOGICAL: Awake and alert. Cranial nerves II through XII intact. No focal neurological deficits. Pressured speech. Laboratory Laboratory Tests Test 12/02/17 20:50 White Blood Count 3.5 Red Blood Count 4.41 Hemoglobin 13.4 Hematocrit 39.5 Mean Corpuscular Volume 89.6 Mean Corpuscular Hemoglobin 30.5 Mean Corpuscular Hemoglobin Concent 34.0 Red Cell Distribution Width 13.6 Platelet Count 122 Mean Platelet Volume 9.8 Neutrophils (%) (Auto) 32.2 Lymphocytes (%) (Auto) 42.1 Monocytes (%) (Auto) 17.4 Eosinophils (%) (Auto) 6.9 Basophils (%) (Auto) 1.4 Neutrophils # (Auto) 1.1 Lymphocytes # (Auto) 1.5 Monocytes # (Auto) 0.6 Eosinophils # (Auto) 0.2 Basophils # (Auto) 0.1 CBC Comment DIFF FINAL Differential Comment Free Thyroxine 0.79 Result Diagram: 12/02/17204912/02/17814 Assessment and Plan Problem List: (1) Schizophrenia, paranoid ICD Code: F20.0 - Paranoid schizophrenia Status: Acute Assessment and Plan Mr. Mcmanus is a 32-year-old -[place] male with a history of schizophrenia, alcohol abuse who was admitted to the psychiatric unit for suspected psychosis and intoxication. Hospitalist service was consulted for leukopenia, thrombocytopenia. -Paranoid schizophrenia -management per psychiatric team. -Hyponatremia -sodium improved from 132 --> 134. Encouraged patient to eat well and drink water. -Mild hyponatremia is likely due to alcohol. -Leukopenia -Thrombocytopenia -Absolute neutrophil count is about 800. -Platelet count 98K and repeat platelet count 122K -This could represent alcohol induced bone marrow suppression. -No Interventions Needed at This Time. He is encouraged to abstain from alcohol. -CBC can be reported in the outpatient setting in 4-6 weeks. -Subclinical hypothyroidism -TSH 3.91, free T4 is normal 0.79. No intervention required at this point. -Probable prediabetes -hemoglobin A1c 6.1. -Patient would benefit from lifestyle modifications as well as metformin 500 mg twice daily. -Medication compliance is a concern especially if patient continues to drink alcohol upon discharge. -We will encourage lifestyle modification at this point. Full code. Ambulation. Thank you for the consult. We will sign off. Please contact us with any questions. Terese Galindo DO Dec 03, 2017 14:19
[2017-12-03] MEDS: ARIPiprazole 10 MG TAB PO SCH (15:47)
[2017-12-03 18:17] VITALS: BP 110/59; PULSE 70; RESP 16; TEMP 97.3; O2SAT 98
[2017-12-04 05:44] VITALS: BP 102/51; PULSE 62; RESP 18; TEMP 97.8; O2SAT 94
[2017-12-04 06:29] LABS: AUTOMATED NEUTROPHIL # 1.3 TH/MM3 (1.8-7.7); BASOPHIL % 0.8 % (0.0-2.0); EOSINOPHIL # 0.1 TH/MM3 (0-0.4); EOSINOPHIL % 2.4 % (0.0-4.0); HEMATOCRIT 40.5 % (39.0-51.0); HEMOGLOBIN 14.1 GM/DL (13.0-17.0); LYMPHOCYTE # 0.8 TH/MM3 (1.0-4.8); MEAN CELL VOLUME 87.8 FL (80.0-100.0); MEAN CORPUSCULAR HEMOGLOBIN 30.5 PG (27.0-34.0); MEAN CORPUSCULAR HGB CONC 34.7 % (32.0-36.0); MEAN PLATELET VOLUME 9.3 FL (7.0-11.0); MONO % 21.2 % (0.0-8.0); MONOCYTE # 0.6 TH/MM3 (0-0.9); NEUT % 47.6 % (16.0-70.0); PLATELET COUNT 149 TH/MM3 (150-450); RED BLOOD COUNT 4.61 MIL/MM3 (4.50-5.90); RED CELL DISTRIBUTION WIDTH 13.7 % (11.6-17.2); WHITE BLOOD COUNT 2.8 TH/MM3 (4.0-11.0)
--- NOTE | 2017-12-04 06:55 | EKG ---
Date Performed: 12/02/2017 Time Performed: 16:31:22 PTAGE: 32 years EKG: SINUS BRADYCARDIA MINIMAL ST DEPRESSION SHORT [place] INTERVAL BORDERLINE ECG Since PREVIOUS TRACING , no significant change noted PREVIOUS TRACIN03/28/2014 16.24 DOCTOR: Jersey Rowan Interpretating Date/Time 12/04/2017 06:54:35
[2017-12-04] MEDS: DIVALPROEX SODIUM E.R. 500 MG TAB PO SCH (08:40)
[2017-12-04] MEDS: ARIPiprazole 10 MG TAB PO SCH (08:40)
--- NOTE | 2017-12-04 10:19 | HHI.PYPN ---
Subjective Chief Complaint: Psychosis Remarks Patient seen and examined with nurse. Chart reviewed. Case discussed with nursing staff who reports patient remains very paranoid. On my examination today, the patient remains fairly disorganized. His speech is somewhat loud and angry. He is defensive for unclear reasons. He tells me "I'll be 33. I'm not eating cake. It's not for me. It's not for me. I'm in a gang." He is internally preoccupied. Grooming is a little bit better today. No side effects from medications. No physical complaints. Review of Systems ROS Limitations: Psychotic, Poor Historian Except as stated in HPI: all other systems reviewed are Neg Mental Status Examination Appearance: Disheveled (grooming a little better today) Consciousness: Alert Orientation: Person, Place (at least) Motor Activity: Other (no motor abnormalities noted) Speech: Unremarkable Language: Other (rambling) Fund of Knowledge: Inadequate Attention and Concentration: Easily Distracted Memory: Impaired (psychosis interferes) Mood: Irritable Affect: Irritable Thought Process & Associations: Disorganized Thought Content: Bizarre thinking Hallucination Type: Other (remains internally preoccupied) Delusion Type: Paranoid Suicidal Ideation: No Suicidal Plan: No Suicidal Intention: No Homicidal Ideation: No Homicidal Plan: No Homicidal Intention: No Insight: Poor Judgment: Poor Results Labs Test 12/04/17 06:00 White Blood Count 2.8 TH/MM3 Red Blood Count 4.61 MIL/MM3 Hemoglobin 14.1 GM/DL Hematocrit 40.5 % Mean Corpuscular Volume 87.8 FL Mean Corpuscular Hemoglobin 30.5 PG Mean Corpuscular Hemoglobin Concent 34.7 % Red Cell Distribution Width 13.7 % Platelet Count 149 TH/MM3 Mean Platelet Volume 9.3 FL Neutrophils (%) (Auto) 47.6 % Lymphocytes (%) (Auto) 28.0 % Monocytes (%) (Auto) 21.2 % Eosinophils (%) (Auto) 2.4 % Basophils (%) (Auto) 0.8 % Neutrophils # (Auto) 1.3 TH/MM3 Lymphocytes # (Auto) 0.8 TH/MM3 Monocytes # (Auto) 0.6 TH/MM3 Eosinophils # (Auto) 0.1 TH/MM3 Basophils # (Auto) 0.0 TH/MM3 CBC Comment DIFF FINAL Differential Comment Labs reviewed. Leukopenia persists although ANC continues to improve. 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 Continue to trend WBC/ANC. Hospitalist input noted and appreciated. Continue Depakote as ordered. Continue to monitor on an inpatient unit. Continue other medications and care as ordered. Justification for Cont. Inpt. Medication changes. Impairment in reality construction. High risk for decompensation in less restrictive setting. Discharge Planning Pending psychiatric stabilization Request HC Surrog/Guard Advoc?: Yes Wally Casarez MD Dec 04, 2017 10:19
[2017-12-04] MEDS: NICOTINE 21 MG/24 HR PATCH T-DERMAL SCH (10:45)
[2017-12-04 17:11] VITALS: BP 102/97; PULSE 60; RESP 18; TEMP 98.4; O2SAT 99
[2017-12-05 06:10] VITALS: BP 101/59; PULSE 58; RESP 17; TEMP 98.2; O2SAT 99
[2017-12-05 08:41] LABS: HEMATOCRIT 40.4 % (39.0-51.0); HEMOGLOBIN 13.9 GM/DL (13.0-17.0); MEAN CELL VOLUME 88.4 FL (80.0-100.0); MEAN CORPUSCULAR HEMOGLOBIN 30.4 PG (27.0-34.0); MEAN CORPUSCULAR HGB CONC 34.4 % (32.0-36.0); MEAN PLATELET VOLUME 9.2 FL (7.0-11.0); PLATELET COUNT 182 TH/MM3 (150-450); RED BLOOD COUNT 4.57 MIL/MM3 (4.50-5.90); RED CELL DISTRIBUTION WIDTH 13.9 % (11.6-17.2); WHITE BLOOD COUNT 2.8 TH/MM3 (4.0-11.0)
[2017-12-05] MEDS: NICOTINE 21 MG/24 HR PATCH T-DERMAL SCH (09:00)
[2017-12-05] MEDS ORDERED: ARIPiprazole 15 MG TAB PO SCH (09:00)
[2017-12-05 10:07] LABS: BANDS 2 % (0-6); LYMPHOCYTES 39 % (9-44); METAMYELOCYTES 1 % (0-1); MONOCYTES 14 % (0-8); PLASMA CELLS 1 % (0-0); POLYS (SEG NEUTROPHILS) 32 % (16-70)
[2017-12-05] MEDS: DIVALPROEX SODIUM E.R. 500 MG TAB PO SCH (10:29)
--- NOTE | 2017-12-05 11:33 | HHI.PYPN ---
Subjective Chief Complaint: Psychosis Remarks Patient seen and case discussed with nursing staff. Chart reviewed. Per nursing staff, patient remains somewhat guarded and paranoid. Case discussed with counselor. On my examination today, patient's thought process is a little bit more organized. He remains somewhat loud and irritable. No evident side effects from medications. No physical complaints. Patient's mother was present at [employer] court today. I spoke with her briefly following court, and she does note that she has seen some improvement in patient's symptoms with the Abilify and is hopeful for further improvement with this medication. Review of Systems ROS Limitations: Psychotic, Poor Historian Other No physical complaints Mental Status Examination Appearance: Other (fair grooming) Consciousness: Alert Orientation: Person, Place (at least) Motor Activity: Other (no motor abnormalities appreciated) Speech: Unremarkable Language: Other (a little more coherent today) Fund of Knowledge: Inadequate Attention and Concentration: Easily Distracted Memory: Impaired (psychosis interferes) Mood: Irritable Affect: Irritable Thought Process & Associations: Disorganized Thought Content: Bizarre thinking Hallucination Type: Other (somewhat less internally preoccupied) Delusion Type: Paranoid Suicidal Ideation: No Suicidal Plan: No Suicidal Intention: No Homicidal Ideation: No Homicidal Plan: No Homicidal Intention: No Insight: Poor Judgment: Poor Results Labs Test 12/05/17 06:55 White Blood Count 2.8 TH/MM3 Red Blood Count 4.57 MIL/MM3 Hemoglobin 13.9 GM/DL Hematocrit 40.4 % Mean Corpuscular Volume 88.4 FL Mean Corpuscular Hemoglobin 30.4 PG Mean Corpuscular Hemoglobin Concent 34.4 % Red Cell Distribution Width 13.9 % Platelet Count 182 TH/MM3 Mean Platelet Volume 9.2 FL CBC Comment AUTO DIFF Differential Total Cells Counted 100 Neutrophils % (Manual) 32 % Band Neutrophils % 2 % Lymphocytes % 39 % Monocytes % 14 % Eosinophils % 11 % Neutrophils # (Manual) 1.0 TH/MM3 Metamyelocytes 1 % Differential Comment FINAL DIFF MANUAL Plasma Cells 1 % Platelet Estimate NORMAL Platelet Morphology Comment NORMAL Labs reviewed. Leukopenia and decreased ANC persist but seem fairly stable. 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 To consider long-acting injectable. Continue to monitor on an inpatient unit. Continue other medications and care as ordered. Patient's case was presented to the [employer] court, and the patient was retained on the unit by the [employer] res[employer] with his mother to serve as guardian advocate. Justification for Cont. Inpt. Medication changes. Impairment in reality construction. Risk for decompensation in less restrictive environment. Discharge Planning Pending psychiatric stabilization. Request HC Surrog/Guard Advoc?: Yes Wally Casarez MD Dec 05, 2017 11:33
[2017-12-05 18:16] VITALS: BP 99/56; PULSE 62; RESP 18; TEMP 97.4; O2SAT 99
[2017-12-06 06:09] VITALS: BP 98/63; PULSE 65; RESP 17; TEMP 98.3; O2SAT 98
[2017-12-06] MEDS: DIVALPROEX SODIUM E.R. 500 MG TAB PO SCH (09:25)
[2017-12-06] MEDS: NICOTINE 21 MG/24 HR PATCH T-DERMAL SCH (09:31)
[2017-12-06 09:48] LABS: AUTOMATED NEUTROPHIL # 0.9 TH/MM3 (1.8-7.7); BASOPHIL % 0.8 % (0.0-2.0); EOSINOPHIL # 0.2 TH/MM3 (0-0.4); EOSINOPHIL % 4.7 % (0.0-4.0); HEMATOCRIT 41.2 % (39.0-51.0); LYMPH % 44.9 % (9.0-44.0); LYMPHOCYTE # 1.5 TH/MM3 (1.0-4.8); MEAN CELL VOLUME 89.4 FL (80.0-100.0); MEAN CORPUSCULAR HEMOGLOBIN 30.4 PG (27.0-34.0); MEAN PLATELET VOLUME 9.1 FL (7.0-11.0); MONO % 20.8 % (0.0-8.0); MONOCYTE # 0.7 TH/MM3 (0-0.9); NEUT % 28.8 % (16.0-70.0); PLATELET COUNT 223 TH/MM3 (150-450); RED BLOOD COUNT 4.61 MIL/MM3 (4.50-5.90); RED CELL DISTRIBUTION WIDTH 13.5 % (11.6-17.2); WHITE BLOOD COUNT 3.3 TH/MM3 (4.0-11.0)
--- NOTE | 2017-12-06 10:22 | HHI.PYPN ---
Subjective Chief Complaint: Psychosis Remarks Patient seen and examined. Chart reviewed. Case discussed with nursing staff. Nurse notes patient is visible on the unit and more sensible in conversation. Case discussed in treatment team. On my exam, patient repeats that he has " No problems. I believe in the real God. I believe in the real God." He is somewhat more organized and coherent in conversation. Less irritable, although he does get a little loud at times. No side effects from medications. No physical complaints. Mental Status Examination Appearance: Other (grooming remains fair) Consciousness: Alert Orientation: Person, Place (at least) Motor Activity: Other (no abnormal motor movements noted) Speech: Unremarkable Language: Other (a little more coherent today) Fund of Knowledge: Inadequate Attention and Concentration: Easily Distracted Memory: Impaired (psychosis interferes) Mood: Irritable (somewhat less irritable today) Affect: Irritable (decreasing) Thought Process & Associations: Disorganized (somewhat more organized today) Thought Content: Bizarre thinking Hallucination Type: Other (somewhat less internally preoccupied) Delusion Type: Paranoid Suicidal Ideation: No Suicidal Plan: No Suicidal Intention: No Homicidal Ideation: No Homicidal Plan: No Homicidal Intention: No Insight: Poor Judgment: Poor Results Labs Test 12/06/17 07:21 White Blood Count 3.3 TH/MM3 Red Blood Count 4.61 MIL/MM3 Hemoglobin 14.0 GM/DL Hematocrit 41.2 % Mean Corpuscular Volume 89.4 FL Mean Corpuscular Hemoglobin 30.4 PG Mean Corpuscular Hemoglobin Concent 34.0 % Red Cell Distribution Width 13.5 % Platelet Count 223 TH/MM3 Mean Platelet Volume 9.1 FL Neutrophils (%) (Auto) 28.8 % Lymphocytes (%) (Auto) 44.9 % Monocytes (%) (Auto) 20.8 % Eosinophils (%) (Auto) 4.7 % Basophils (%) (Auto) 0.8 % Neutrophils # (Auto) 0.9 TH/MM3 Lymphocytes # (Auto) 1.5 TH/MM3 Monocytes # (Auto) 0.7 TH/MM3 Eosinophils # (Auto) 0.2 TH/MM3 Basophils # (Auto) 0.0 TH/MM3 CBC Comment AUTO DIFF Labs reviewed. ANC stable. 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 To consider long-acting injectable Abilify. Check a CBC after the weekend. Continue to monitor on the high acuity unit. Continue other medications and care as ordered. Justification for Cont. Inpt. Medication changes. Impairment in reality construction. Risk for decompensation in less restrictive environment. Discharge Planning Pending psychiatric stabilization Request HC Surrog/Guard Advoc?: Yes Wally Casarez MD Dec 06, 2017 10:22
[2017-12-06 10:32] LABS: BANDS 3 % (0-6); BASOPHILS 1 % (0-2); LYMPHOCYTES 42 % (9-44); MONOCYTES 17 % (0-8); NEUTROPHIL # MANUAL DIFF 1.1 TH/MM3 (1.8-7.7); POLYS (SEG NEUTROPHILS) 30 % (16-70)
[2017-12-06] MEDS ORDERED: PILL SPLITTER OTHER PRN (14:15)
[2017-12-06 18:08] VITALS: BP 73/55; PULSE 62; RESP 17; TEMP 96.8; O2SAT 99
[2017-12-07 06:27] VITALS: BP 92/50; PULSE 52; RESP 16; TEMP 98.1; O2SAT 100
[2017-12-07] MEDS: DIVALPROEX SODIUM E.R. 500 MG TAB PO SCH (08:57)
[2017-12-07] MEDS: ARIPiprazole 10 MG TAB PO SCH (08:57)
[2017-12-07] MEDS: NICOTINE 21 MG/24 HR PATCH T-DERMAL SCH (08:58)
--- NOTE | 2017-12-07 12:48 | HHI.PYPN ---
Subjective Chief Complaint: Psychosis Remarks Pt seen and discussed with staff. He remains disorganized in thought process and behaviors. He exhibits deficits in self care. He has been more cooperative, and has been less isolative to his room today. Appetite is improved. He denies medication side effects. Hygiene is limited. NO SI/HI Mental Status Examination Appearance: Disheveled Consciousness: Alert Orientation: Person, Place (at least) Motor Activity: Other (no abnormal motor movements noted) Speech: Unremarkable Language: Other (a little more coherent today) Fund of Knowledge: Inadequate Attention and Concentration: Easily Distracted Memory: Impaired (psychosis interferes) Mood: Irritable (somewhat less irritable today) Affect: Irritable (decreasing) Thought Process & Associations: Disorganized (somewhat more organized today) Thought Content: Bizarre thinking Hallucination Type: Other (somewhat less internally preoccupied) Delusion Type: Paranoid Suicidal Ideation: No Suicidal Plan: No Suicidal Intention: No Homicidal Ideation: No Homicidal Plan: No Homicidal Intention: No Insight: Poor Judgment: Poor Results Vitals/IOs Vital Signs Date Time Temp Pulse Resp B/P (MAP) Pulse Ox O2 Delivery O2 Flow Rate FiO2 12/07/17 06:27 98.1 52 16 92/50 (64) 100 Assessment & Plan Problem List: (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 Estimated LOS: days Justification for Cont. Inpt. impairments in reality testing Request HC Surrog/Guard Advoc?: Yes Laisha Rey MD Dec 07, 2017 12:48
[2017-12-07 17:40] VITALS: BP 96/54; PULSE 59; RESP 16; TEMP 96.9; O2SAT 100
[2017-12-08 06:17] VITALS: BP 101/56; PULSE 50; RESP 16; TEMP 97.7; O2SAT 100
--- NOTE | 2017-12-08 08:07 | PD.TTN ---
Patient Problems 1. Discharge planning 2. Medication compliance 3. Knowledge deficit 4. Lack of coping skills Progress Toward Goals Provider Present: Dr. Adrianna Casarez Provider Input: 12/06/17 still meets criteria , disorganized and medications increased / has to remain for further med adjustment / stabilization CBC Abnormalities, start on Abilify when blood issue us resolved. Psychiatric Counselors Present: Angel Dobbins Jr., [facility], Anita Aburto, [facility] , Bety Tony, [facility] Psych Therapist Input: 12/06/17 have not sat w/ patient since admission. Group Spec/RT/OT/MENDOZA Present: Nayeli Bullock, GPS, Maurice Correa, OT Group Spec/RT/OT/MENDOZA Input: 12/06/17 limited attendance Isolates to self, guarded, needs alot of encouragement to attend the group activities. María Elena Silvestre LCSW Dec 08, 2017 08:07
--- NOTE | 2017-12-08 08:09 | PD.TTN ---
Patient Problems 1. Discharge planning 2. Medication compliance 3. Knowledge deficit 4. Lack of coping skills Progress Toward Goals Provider Present: Dr. Adrianna Casarez Provider Input: 12/06/17 still meets criteria , disorganized and medications increased / has to remain for further med adjustment / stabilization CBC Abnormalities, start on Abilify when blood issue us resolved. Psychiatric Counselors Present: Angel Dobbins Jr., [facility], Anita Aburto, [facility] , Bety Tony, [facility] Psych Therapist Input: 12/06/17 family and room mate were contacted for collateral for anticipated discharge/ discharge planning have not sat w/ patient since admission. Group Spec/RT/OT/MENDOZA Present: Nayeli Bullock, [employer], Maurice Correa, OT Group Spec/RT/OT/MENDOZA Input: 12/06/17 limited attendance Isolates to self, guarded, needs alot of encouragement to attend the group activities. María Elena Silvestre LCSW Dec 08, 2017 08:09
[2017-12-08] MEDS: ARIPiprazole 10 MG TAB PO SCH (08:10)
[2017-12-08] MEDS: DIVALPROEX SODIUM E.R. 500 MG TAB PO SCH (08:10)
[2017-12-08] MEDS: NICOTINE 21 MG/24 HR PATCH T-DERMAL SCH (08:11)
--- NOTE | 2017-12-08 13:19 | HHI.PYPN ---
Subjective Chief Complaint: Psychosis Remarks Pt seen and discussed with staff. He has been compliant with medications and care. Eye contact is fair and concentration is poor. Thought process and behaviors remain disorganized. He has been attending milieu activities and sleep has improved. Mental Status Examination Appearance: Disheveled Consciousness: Alert Orientation: Person, Place (at least) Motor Activity: Other (no abnormal motor movements noted) Speech: Unremarkable Language: Other (a little more coherent today) Fund of Knowledge: Inadequate Attention and Concentration: Easily Distracted Memory: Impaired (psychosis interferes) Mood: Irritable (somewhat less irritable today) Affect: Irritable (decreasing) Thought Process & Associations: Disorganized (improving) Thought Content: Bizarre thinking Hallucination Type: Other (somewhat less internally preoccupied) Delusion Type: Paranoid Suicidal Ideation: No Suicidal Plan: No Suicidal Intention: No Homicidal Ideation: No Homicidal Plan: No Homicidal Intention: No Insight: Poor Judgment: Poor Results Vitals/IOs Vital Signs Date Time Temp Pulse Resp B/P (MAP) Pulse Ox O2 Delivery O2 Flow Rate FiO2 12/08/17 06:17 97.7 50 16 101/56 (71) 100 Assessment & Plan Problem List: (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 Estimated LOS: days Justification for Cont. Inpt. impairments in reality testing Request HC Surrog/Guard Advoc?: Yes Laisha Rey MD Dec 08, 2017 13:19
[2017-12-08 17:26] VITALS: BP 98/50; PULSE 82; RESP 16; TEMP 97.8; O2SAT 100
[2017-12-09 05:57] VITALS: BP 100/54; PULSE 50; RESP 17; TEMP 96.7; O2SAT 96
[2017-12-09 06:59] LABS: AUTOMATED NEUTROPHIL # 0.9 TH/MM3 (1.8-7.7); BASOPHIL % 1.3 % (0.0-2.0); EOSINOPHIL # 0.1 TH/MM3 (0-0.4); EOSINOPHIL % 2.1 % (0.0-4.0); HEMATOCRIT 40.7 % (39.0-51.0); HEMOGLOBIN 13.6 GM/DL (13.0-17.0); LYMPH % 59.4 % (9.0-44.0); LYMPHOCYTE # 2.2 TH/MM3 (1.0-4.8); MEAN CELL VOLUME 89.3 FL (80.0-100.0); MEAN CORPUSCULAR HEMOGLOBIN 29.8 PG (27.0-34.0); MEAN CORPUSCULAR HGB CONC 33.3 % (32.0-36.0); MEAN PLATELET VOLUME 8.4 FL (7.0-11.0); MONO % 12.8 % (0.0-8.0); MONOCYTE # 0.5 TH/MM3 (0-0.9); NEUT % 24.4 % (16.0-70.0); PLATELET COUNT 350 TH/MM3 (150-450); RED BLOOD COUNT 4.56 MIL/MM3 (4.50-5.90); WHITE BLOOD COUNT 3.7 TH/MM3 (4.0-11.0)
[2017-12-09] MEDS: ARIPiprazole 10 MG TAB PO SCH (08:07)
[2017-12-09] MEDS: DIVALPROEX SODIUM E.R. 500 MG TAB PO SCH (08:07)
[2017-12-09] MEDS: NICOTINE 21 MG/24 HR PATCH T-DERMAL SCH (08:07)
[2017-12-09 09:40] LABS: BANDS 4 % (0-6); LYMPHOCYTES 62 % (9-44); MONOCYTES 9 % (0-8); POLYS (SEG NEUTROPHILS) 24 % (16-70)
--- NOTE | 2017-12-09 11:52 | HHI.PYPN ---
Subjective Chief Complaint: Psychosis Remarks Patient seen and examined with nurse. Chart reviewed. Case discussed with nursing staff who reports that the patient is improving and attending groups. Case discussed with counselor. On my examination today, the patient is considerably calmer and less irritable versus before the weekend. He feels that his psychotropics or "working good" and he is tolerating them well without side effects. He denies any SI, HI or AVH. No physical complaints. Spoke with patient's mother/guardian advocate. She, too, feels that the patient is improving with psychotropic medications. She gives consent for long- acting injectable Abilify Maintena. R/B/A d/w mother. She is supportive of discharge home in the next day or two. Review of Systems Except as stated in HPI: all other systems reviewed are Neg Mental Status Examination Appearance: Other (grooming and hygiene improved versus admission) Consciousness: Alert Orientation: Person, Place (at least) Motor Activity: Other (no motor abnormalities noted) Speech: Unremarkable Language: Other (a little more coherent today) Fund of Knowledge: Inadequate Attention and Concentration: Adequate Memory: Unremarkable Mood: Appropriate Affect: Appropriate Thought Process & Associations: Circumstantial Thought Content: Appropriate Hallucination Type: None Delusion Type: None Suicidal Ideation: No Suicidal Plan: No Suicidal Intention: No Homicidal Ideation: No Homicidal Plan: No Homicidal Intention: No Insight: Poor Judgment: Poor Results Labs Test 12/09/17 05:30 White Blood Count 3.7 TH/MM3 Red Blood Count 4.56 MIL/MM3 Hemoglobin 13.6 GM/DL Hematocrit 40.7 % Mean Corpuscular Volume 89.3 FL Mean Corpuscular Hemoglobin 29.8 PG Mean Corpuscular Hemoglobin Concent 33.3 % Red Cell Distribution Width 14.0 % Platelet Count 350 TH/MM3 Mean Platelet Volume 8.4 FL Neutrophils (%) (Auto) 24.4 % Lymphocytes (%) (Auto) 59.4 % Monocytes (%) (Auto) 12.8 % Eosinophils (%) (Auto) 2.1 % Basophils (%) (Auto) 1.3 % Neutrophils # (Auto) 0.9 TH/MM3 Lymphocytes # (Auto) 2.2 TH/MM3 Monocytes # (Auto) 0.5 TH/MM3 Eosinophils # (Auto) 0.1 TH/MM3 Basophils # (Auto) 0.0 TH/MM3 CBC Comment AUTO DIFF Differential Total Cells Counted 100 Neutrophils % (Manual) 24 % Band Neutrophils % 4 % Lymphocytes % 62 % Monocytes % 9 % Eosinophils % 1 % Neutrophils # (Manual) 1.0 TH/MM3 Differential Comment FINAL DIFF MANUAL Platelet Estimate NORMAL Platelet Morphology Comment NORMAL Red Cell Morphology Comment NORMAL Labs reviewed. ANC stable. 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 Continue oral Abilify supplementation. Continue Depakote as ordered and check a Depakote/ ammonia level in the morning. Continue to monitor on the inpatient unit. Continue other medications and care as ordered. Justification for Cont. Inpt. Medication changes. Discharge Planning Anticipate discharge in the next 1-2 days. Request HC Surrog/Guard Advoc?: Yes Wally Casarez MD Dec 09, 2017 11:52
[2017-12-09] MEDS ORDERED: ABILIFY MAINTENA 400 MG IM SCH (15:00)
[2017-12-09 17:14] VITALS: BP 107/64; PULSE 65; RESP 17; TEMP 98.7; O2SAT 98
[2017-12-10 05:57] VITALS: BP 99/57; PULSE 52; RESP 18; TEMP 98.3
[2017-12-10] MEDS: NICOTINE 21 MG/24 HR PATCH T-DERMAL SCH (09:00)
[2017-12-10] MEDS: ARIPiprazole 10 MG TAB PO SCH (09:08)
[2017-12-10] MEDS: DIVALPROEX SODIUM E.R. 500 MG TAB PO SCH (09:09)
--- NOTE | 2017-12-10 10:44 | HHI.PYPN ---
Subjective Chief Complaint: Psychosis Remarks Patient seen and examined. Chart reviewed. Case discussed with nursing staff. Case discussed in treatment team. Long-acting injectable Abilify not administered yesterday as the pharmacy was out of this medication. I will endeavor to obtain a sample dose for patient. On my exam, patient seems a little more irritable today. He is also slightly more disorganized. He seems to be growing frustrated with ongoing hospitalization and is discharge focused. He denies side effects from medications. No physical complaints. Review of Systems ROS Limitations: Poor Historian Except as stated in HPI: all other systems reviewed are Neg Mental Status Examination Appearance: Other (grooming and hygiene improved versus admission) Consciousness: Alert Orientation: Person, Place (at least) Motor Activity: Other (no motor abnormalities noted) Speech: Unremarkable Language: Other (a little more coherent today) Fund of Knowledge: Inadequate Attention and Concentration: Adequate Memory: Unremarkable Mood: Irritable (mild) Affect: Irritable Thought Process & Associations: Tangential Thought Content: Appropriate Hallucination Type: None Delusion Type: None Suicidal Ideation: No Suicidal Plan: No Suicidal Intention: No Homicidal Ideation: No Homicidal Plan: No Homicidal Intention: No Insight: Poor Judgment: Poor Results Labs Test 12/10/17 07:25 Ammonia 22 MCMOL/L Valproic Acid (Depakene) Level 80 MCG/ML Labs reviewed. Depakote level within the therapeutic range and ammonia level not elevated. 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 If I can secure a dose of long-acting injectable Abilify, we will plan to administer this to the patient. Continue oral Abilify as ordered. Continue to monitor on the inpatient unit. Continue other medications and care as ordered. Justification for Cont. Inpt. Med changes. Risk for decompensation in less restrictive environment. Discharge Planning Pending stabilization. Possible discharge later in the week. Request HC Surrog/Guard Advoc?: Yes Wally Casarez MD Dec 10, 2017 10:44
[2017-12-10 18:25] VITALS: BP 99/55; PULSE 73; RESP 18; TEMP 98.1; O2SAT 99
[2017-12-11 05:53] VITALS: BP 103/57; PULSE 80; RESP 18; TEMP 98.1
[2017-12-11] MEDS: ARIPiprazole 10 MG TAB PO SCH (08:41)
[2017-12-11] MEDS: DIVALPROEX SODIUM E.R. 500 MG TAB PO SCH (08:42)
[2017-12-11] MEDS: DIVALPROEX SODIUM E.R. 250 MG TAB PO SCH (08:42)
[2017-12-11] MEDS: NICOTINE 21 MG/24 HR PATCH T-DERMAL SCH (09:00)
[2017-12-11] MEDS ORDERED: ABILIFY MAINTENA 400 MG IM SCH (10:00)
--- NOTE | 2017-12-11 11:34 | HHI.PYPN ---
Subjective Chief Complaint: Psychosis Remarks Patient seen and examined with nurse. Chart reviewed. Case discussed with nursing staff. On my examination today, the patient is in better spirits. He is considerably less irritable, although he does get a little testy with prolonged examination. He denies any SI or HI. Denies any AVH. Denies side effects from medications. I was able to secure a dose of Abilify Maintena from child psychiatry department, and this will be administered to patient today. No physical complaints. Review of Systems ROS Limitations: Poor Historian Except as stated in HPI: all other systems reviewed are Neg Mental Status Examination Appearance: Other (fair grooming and hygiene) Consciousness: Alert Orientation: Person, Place (at least) Motor Activity: Other (no abnormal motor movements noted) Speech: Unremarkable Language: Other (a little more coherent today) Fund of Knowledge: Inadequate Attention and Concentration: Adequate Memory: Unremarkable Mood: Appropriate Affect: Blunt Thought Process & Associations: Circumstantial Thought Content: Appropriate Hallucination Type: None Delusion Type: None Suicidal Ideation: No Suicidal Plan: No Suicidal Intention: No Homicidal Ideation: No Homicidal Plan: No Homicidal Intention: No Insight: Poor Judgment: Poor Results Labs Labs reviewed. No new labs. 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 Continue oral Abilify supplementation. Continue Depakote as ordered. Continue to monitor on the inpatient unit. Continue other medications and care as ordered. Justification for Cont. Inpt. Medication changes. Discharge Planning I have asked the Counselor to have the patient's mother, out this evening to evaluate the patient. If she feels that he is close to his baseline, we might consider discharge tomorrow, . Request HC Surrog/Guard Advoc?: Yes Wally Casarez MD Dec 11, 2017 11:34
[2017-12-11 16:46] VITALS: BP 105/58; PULSE 61; RESP 18; TEMP 97.3; O2SAT 100
[2017-12-12 06:02] VITALS: BP 119/62; PULSE 68; RESP 18; TEMP 98.2; O2SAT 97
[2017-12-12] MEDS: DIVALPROEX SODIUM E.R. 250 MG TAB PO SCH (07:51)
[2017-12-12] MEDS: NICOTINE 21 MG/24 HR PATCH T-DERMAL SCH (07:51)
[2017-12-12] MEDS: ARIPiprazole 10 MG TAB PO SCH (07:52)
[2017-12-12] MEDS: DIVALPROEX SODIUM E.R. 500 MG TAB PO SCH (07:52)
--- NOTE | 2017-12-12 10:11 | HHI.PYPN ---
Subjective Chief Complaint: Psychosis Remarks Patient seen and examined with nurse. Chart reviewed. Case discussed with nursing staff who reports patient has been more paranoid and irritable today. Medication nonadherence is not suspected by nursing staff. On my examination today, the patient seems more guarded and irritable. He is somewhat disheveled and malodorous and has been wearing the same clothes for several days. When I ask him if we might take these clothes to be laundered and put him in hospital attire briefly he says "I have to wear these to keep me safe!" He has drawn arrows and boxes on his kimball with toothpaste, and when I ask about their significance, he blandly denies having made them. Denies side effects from medications. No physical complaints. Spoke with patient's mother/GA. She agrees that the patient requires more time on the inpatient psychiatric unit for stabilization. We discuss adding a second antipsychotic temporarily for acute stabilization, and she is agreeable to adding Haldol. Review of Systems ROS Limitations: Psychotic, Poor Historian Except as stated in HPI: all other systems reviewed are Neg Mental Status Examination Appearance: Disheveled, Malodorous Consciousness: Alert Orientation: Person, Place (at least) Motor Activity: Other (no motor abnormalities noted) Speech: Unremarkable Language: Adequate Fund of Knowledge: Inadequate Attention and Concentration: Adequate Memory: Unremarkable Mood: Irritable Affect: Irritable, Other (dysphoric) Thought Process & Associations: Circumstantial Thought Content: Appropriate Hallucination Type: None Delusion Type: None Suicidal Ideation: No Suicidal Plan: No Suicidal Intention: No Homicidal Ideation: No Homicidal Plan: No Homicidal Intention: No Insight: Poor Judgment: Poor Results Labs Labs reviewed. No new labs. 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 Add Haldol 2 mg twice daily with plans to titrate to effect for psychosis. R/B/A reviewed with GA. Continue oral Abilify supplementation of long-acting injectable Abilify Maintena. Continue Depakote as ordered and plan to check a Depakote level over the weekend. Continue to monitor on the high acuity unit. Continue other medications and care as ordered. Justification for Cont. Inpt. Medication changes. Impairment in reality construction. High risk for decompensation in less restrictive environment. Discharge Planning Pending psychiatric stabilization. Possible discharge after the weekend. Request HC Surrog/Guard Advoc?: Yes Wally Casarez MD Dec 12, 2017 10:11
[2017-12-12 18:04] VITALS: BP 89/54; PULSE 68; RESP 18; TEMP 96.9; O2SAT 96
[2017-12-12] MEDS: HALOPERIDOL 2 MG TAB PO SCH (21:18)
[2017-12-13 05:59] VITALS: BP 96/57; PULSE 54; RESP 16; TEMP 98.5; O2SAT 98
[2017-12-13] MEDS: NICOTINE 21 MG/24 HR PATCH T-DERMAL SCH (09:00)
[2017-12-13] MEDS: HALOPERIDOL 2 MG TAB PO SCH (09:07)
[2017-12-13] MEDS: ARIPiprazole 10 MG TAB PO SCH (09:07)
[2017-12-13] MEDS: DIVALPROEX SODIUM E.R. 500 MG TAB PO SCH (09:07)
[2017-12-13] MEDS: DIVALPROEX SODIUM E.R. 250 MG TAB PO SCH (09:07)
--- NOTE | 2017-12-13 09:11 | HHI.PYPN ---
Subjective Chief Complaint: Psychosis Remarks Patient seen and examined. Chart reviewed. Case discussed with nursing staff. Case discussed in treatment team. I find the patient crouched on his bed in his room. He is electively mute. Affect is quite dysphoric. He pointed avoids making eye contact with me. He rushes past me and out the door into the hallway. Throughout the morning whenever my rounds take me near the patient in the hallway, he rushes off. He is paranoid and internally stimulated. No evident side effects from medications. No physical complaints. Review of Systems ROS Limitations: Uncooperative, Psychotic, Poor Historian, Other (electively mute) Other Limited ROS due to above. Mental Status Examination Appearance: Disheveled Consciousness: Alert, Vigilant Orientation: Person Motor Activity: Other (no abnormal motor movements noted) Speech: Other (electively mute) Language: Other (mute) Mood: Other (unable to assess, mut) Affect: Irritable, Other (dysphoric) Thought Process & Associations: Other (unable to assess, mute) Thought Content: Other (unable to assess, mute) Hallucination Type: Other (internally stimulated) Delusion Type: Other (suspect ongoing paranoia) Suicidal Ideation: No (no SI voiced) Homicidal Ideation: No (no HI voiced) Insight: Poor Judgment: Poor Results Labs Labs reviewed. 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 I will titrate Haldol to 5mg BID to target psychosis and taper oral Abilify somewhat to 20mg daily to avoid causing side effects as levels of Maintena increase from recent administration. We might consider further titration of Haldol and tapering of oral Abilify over the weekend. Continue to monitor on the high acuity unit. Encourage ADLs , patient is eating but not showering. Continue other medications and care as ordered. Justification for Cont. Inpt. Medication changes. Impairment in reality construction. Risk for decompensation in less restrictive environment. Discharge Planning Pending psychiatric stabilization Request HC Surrog/Guard Advoc?: Yes Wally Casarez MD Dec 13, 2017 09:11
[2017-12-13 18:18] VITALS: BP 111/57; PULSE 82; RESP 17; TEMP 96.9
[2017-12-13] MEDS: HALOPERIDOL 5 MG TAB PO SCH (20:35)
[2017-12-14 06:17] VITALS: BP 94/53; PULSE 63; RESP 19; TEMP 97.4
[2017-12-14] MEDS: DIVALPROEX SODIUM E.R. 250 MG TAB PO SCH (08:44)
[2017-12-14] MEDS: DIVALPROEX SODIUM E.R. 500 MG TAB PO SCH (08:45)
[2017-12-14] MEDS: NICOTINE 21 MG/24 HR PATCH T-DERMAL SCH (08:46)
[2017-12-14] MEDS: HALOPERIDOL 5 MG TAB PO SCH ×2 (08:46→20:09)
--- NOTE | 2017-12-14 15:51 | HHI.PYPN ---
Subjective Chief Complaint: Psychosis Remarks Patient was seen and case discussed with nursing. Per nursing patient is quite elevated was speaking to his mother on the phone. During the interview raise his voice at times and has a bizarre delusion concerning his association with the wrapper named jamilah. Thought process remains disorganized patient is quite disheveled. Compliant with medications no outbursts Mental Status Examination Appearance: Disheveled Consciousness: Alert, Vigilant Orientation: Person Motor Activity: Other (no abnormal motor movements noted) Speech: Other (electively mute) Language: Other (mute) Mood: Other (unable to assess, mut) Affect: Irritable, Other (dysphoric) Thought Process & Associations: Other (unable to assess, mute) Thought Content: Other (unable to assess, mute) Hallucination Type: Other (internally stimulated) Delusion Type: Other (suspect ongoing paranoia) Suicidal Ideation: No (no SI voiced) Homicidal Ideation: No (no HI voiced) Insight: Poor Judgment: Poor Results Vitals/IOs Vital Signs Date Time Temp Pulse Resp B/P (MAP) Pulse Ox O2 Delivery O2 Flow Rate FiO2 12/14/17 06:17 97.4 63 19 94/53 (67) 12/13/17 05:59 98 Assessment & Plan Problem List: (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 Inpt. Patient will decompensate in a less restrictive setting Request HC Surrog/Guard Advoc?: Yes Todd Rinaldi DO Dec 14, 2017 15:51
[2017-12-14 17:33] VITALS: BP 97/52; PULSE 76; RESP 19; TEMP 96.9; O2SAT 97
[2017-12-14] MEDS: LORazepam 1 MG TAB PO PRN (20:09)
[2017-12-15 06:04] VITALS: BP 105/55; PULSE 75; RESP 17; TEMP 98.9; O2SAT 99
[2017-12-15] MEDS: DIVALPROEX SODIUM E.R. 250 MG TAB PO SCH (08:56)
[2017-12-15] MEDS: HALOPERIDOL 5 MG TAB PO SCH ×3 (08:56→18:45)
[2017-12-15] MEDS: DIVALPROEX SODIUM E.R. 500 MG TAB PO SCH (08:56)
[2017-12-15] MEDS: NICOTINE 21 MG/24 HR PATCH T-DERMAL SCH (09:00)
--- NOTE | 2017-12-15 11:38 | HHI.PYPN ---
Subjective Chief Complaint: Psychosis Remarks Patient was seen and case discussed with nursing. Ammonia is 41 Depakote level is 87. Patient is more interactive today. He quickly goes off topic after the first question and recalls various episodes in his life including graduating from high school. Thought process is quite loose. He is quite agitated during his monologue raising his voice for no apparent reason. Denies auditory hallucinations. Behaving well on the unit Mental Status Examination Appearance: Disheveled Consciousness: Alert, Vigilant Orientation: Person Motor Activity: Other (no abnormal motor movements noted) Speech: Pressured, Rapid Language: Adequate Attention and Concentration: Inadequate Mood: Oppositional Affect: Irritable Thought Process & Associations: Loose associations Thought Content: Racing thoughts Hallucination Type: None, Other (internally stimulated) Delusion Type: Other (suspect ongoing paranoia) Suicidal Ideation: No (no SI voiced) Suicidal Plan: No Suicidal Intention: No Homicidal Ideation: No (no HI voiced) Insight: Poor Judgment: Poor Results Labs Test 12/15/17 07:20 Ammonia 41 MCMOL/L Valproic Acid (Depakene) Level 87 MCG/ML Vitals/IOs Vital Signs Date Time Temp Pulse Resp B/P (MAP) Pulse Ox O2 Delivery O2 Flow Rate FiO2 12/15/17 06:04 98.9 75 17 105/55 (72) 99 Assessment & Plan Problem List: (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 Inpt. Patient will decompensate in a less restrictive setting Request HC Surrog/Guard Advoc?: Yes Todd Rinaldi DO Dec 15, 2017 11:38
[2017-12-15 17:01] VITALS: BP 104/54; PULSE 85; RESP 18; TEMP 97.7; O2SAT 98
[2017-12-15] MEDS: LORazepam 1 MG TAB PO PRN (20:55)
[2017-12-15] MEDS: diphenhydrAMINE HCL 50 MG CAP PO PRN (20:55)
[2017-12-15 23:54] VITALS: BP 116/56; PULSE 75; RESP 18; TEMP 98.3; O2SAT 99
[2017-12-16 06:05] VITALS: BP 101/63; PULSE 56; RESP 18; TEMP 98.5
[2017-12-16] MEDS: HALOPERIDOL 5 MG TAB PO SCH ×3 (09:25→17:45)
[2017-12-16] MEDS: DIVALPROEX SODIUM E.R. 250 MG TAB PO SCH (09:25)
[2017-12-16] MEDS: DIVALPROEX SODIUM E.R. 500 MG TAB PO SCH (09:26)
[2017-12-16] MEDS: NICOTINE 21 MG/24 HR PATCH T-DERMAL SCH (09:26)
--- NOTE | 2017-12-16 10:45 | HHI.PYPN ---
Subjective Chief Complaint: Psychosis Remarks Patient seen and examined. Chart reviewed. Case discussed with nursing staff. Patient seems to be worsening per nurse and staff. He is noted to be increasingly paranoid and is hiding behind doors. No medication non-adherence reported. On my exam, patient is tangential. He is quite defensive and irritable. He remains disheveled. He is paranoid and internally stimulated. He is unable to tolerate extended interview and storms off angrily with no evident provocation. No side effects from medications. No physical complaints. Review of Systems ROS Limitations: Psychotic, Poor Historian Except as stated in HPI: all other systems reviewed are Neg Mental Status Examination Appearance: Disheveled Consciousness: Alert, Vigilant Orientation: Person Motor Activity: Other (no motor abnormalities noted) Speech: Rapid Language: Other (rambling) Attention and Concentration: Inadequate Mood: Oppositional, Irritable Affect: Irritable, Other (dysphoric) Thought Process & Associations: Loose associations Thought Content: Hallucinations, Delusional Hallucination Type: Other (remains internally stimulated) Delusion Type: Paranoid Suicidal Ideation: No (no SI voiced) Homicidal Ideation: No (no HI voiced) Insight: Poor Judgment: Poor Results Labs Item Value Date Time Valproic Acid (Depakene) Level 87 MCG/ML 12/15/17 0720 Ammonia 41 MCMOL/L H 12/15/17 0720 Depakote level LXXXVII, within the therapeutic range. Ammonia level XLI without evidence of hyperammonemic encephalopathy. 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 Titrate Haldol to 7.5mg TID and taper Abilify to 15mg daily to target psychosis. Continue Depakote as ordered. Monitor for any signs of hyperammonemic encephalopathy, presently none. Continue to monitor on the high acuity unit. Continue other medications and care as ordered. Justification for Cont. Inpt. Medication changes. Impairment in self-care. Impairment in reality construction. High risk for decompensation in less restrictive environment. Discharge Planning Pending psychiatric stabilization Request Surrog/Guard Advoc?: Yes Wally Casarez MD Dec 16, 2017 10:45
[2017-12-16 15:07] VITALS: BP 108/80; PULSE 93; RESP 18; TEMP 98.7; O2SAT 100
[2017-12-16] MEDS: LORazepam 1 MG TAB PO PRN (21:09)
[2017-12-17 05:53] VITALS: BP 111/64; PULSE 61; RESP 18; TEMP 96.5; O2SAT 91
[2017-12-17] MEDS: DIVALPROEX SODIUM E.R. 500 MG TAB PO SCH (08:13)
[2017-12-17] MEDS: HALOPERIDOL 5 MG TAB PO SCH ×2 (08:14→12:40)
[2017-12-17] MEDS: DIVALPROEX SODIUM E.R. 250 MG TAB PO SCH (08:14)
[2017-12-17] MEDS: NICOTINE 21 MG/24 HR PATCH T-DERMAL SCH (08:14)
[2017-12-17] MEDS ORDERED: ARIPiprazole 15 MG TAB PO SCH (09:00)
--- NOTE | 2017-12-17 10:47 | HHI.PYPN ---
Subjective Chief Complaint: Psychosis Remarks Patient seen and examined with nurse. Chart reviewed. Case discussed with nursing staff. Case discussed in treatment team. On my examination today, patient remains fairly disorganized but is calmer and much less guarded. He has changed his clothing and is now wearing clean clothes. Remains somewhat internally stimulated. Affect is more euthymic. Denies side effects from medications. Says that he stopped his right great toe while playing basketball during fresh air. Review of Systems ROS Limitations: Psychotic, Poor Historian Except as stated in HPI: all other systems reviewed are Neg Mental Status Examination Appearance: Disheveled Consciousness: Alert Orientation: Person Motor Activity: Other (no abnormal motor movements noted) Speech: Rapid Language: Other (rambling) Attention and Concentration: Inadequate Mood: Appropriate Affect: Euthymic Thought Process & Associations: Disorganized Thought Content: Hallucinations, Delusional Hallucination Type: Other (remains internally stimulated) Delusion Type: Paranoid (perhaps decreasing somewhat) Suicidal Ideation: No Homicidal Ideation: No Insight: Poor Judgment: Poor Results Labs Labs reviewed. No new labs. 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 Abilify 10 mg daily and Haldol 10 mg 3 times daily. Patient does have Abilify Maintena on board. Check an x-ray of the right foot to assess for possible fracture. Patient is walking with a limp. Continue to monitor on the inpatient unit. Continue other medications and care as ordered. Justification for Cont. Inpt. Medication changes. High risk for decompensation in less restrictive environment. Discharge Planning Pending psychiatric stabilization Request HC Surrog/Guard Advoc?: Yes Wally Casarez MD Dec 17, 2017 10:47
[2017-12-17] MEDS: HALOPERIDOL 10 MG TAB PO SCH (17:48)
[2017-12-17 18:13] VITALS: BP 113/51; PULSE 75; RESP 18; TEMP 97.8; O2SAT 95
[2017-12-17] MEDS: LORazepam 1 MG TAB PO PRN (20:43)
[2017-12-18 05:54] VITALS: BP 98/61; PULSE 46; RESP 18; TEMP 97.4; O2SAT 93
[2017-12-18 07:34] VITALS: BP 99/52; PULSE 59; RESP 18; TEMP 96.9; O2SAT 96
[2017-12-18] MEDS: LORazepam 1 MG TAB PO PRN ×2 (08:49→22:27)
[2017-12-18] MEDS: ARIPiprazole 10 MG TAB PO SCH (08:49)
[2017-12-18] MEDS: HALOPERIDOL 10 MG TAB PO SCH ×3 (08:49→18:00)
[2017-12-18] MEDS: DIVALPROEX SODIUM E.R. 500 MG TAB PO SCH (08:49)
[2017-12-18] MEDS: DIVALPROEX SODIUM E.R. 250 MG TAB PO SCH (08:49)
[2017-12-18] MEDS: NICOTINE 21 MG/24 HR PATCH T-DERMAL SCH (08:50)
--- NOTE | 2017-12-18 10:18 | HHI.PYPN ---
Subjective Chief Complaint: Psychosis Remarks Patient seen and examined. Chart reviewed. Case discussed with nursing staff. Patient noted to be less paranoid with better eye contact. He does remain a little bit irritable though. On my examination today, patient is fairly appropriate in conversation. He is requesting Gatorade and the nurse will try to accommodate him. No irritability in my interaction with him. Thought process much more organized today. No side effects from medications. No physical complaints. Spoke with patient's mother. She feels that the patient is improving. We discuss a possible Saturday discharge if the patient remains improved, and she is in agreement with this plan. Review of Systems ROS Limitations: Poor Historian Except as stated in HPI: all other systems reviewed are Neg Mental Status Examination Appearance: Appropriate (grooming is considerably improved today) Consciousness: Alert Orientation: Person Motor Activity: Other (no motoric abnormalities noted) Speech: Unremarkable Language: Other (more focused and coherent) Attention and Concentration: Inadequate Mood: Appropriate Affect: Euthymic Thought Process & Associations: Circumstantial (much more organized today) Thought Content: Appropriate Hallucination Type: None Delusion Type: None Suicidal Ideation: No Homicidal Ideation: No Insight: Poor Judgment: Poor Results Labs Labs reviewed. 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 Continue Haldol as ordered. Continue oral Abilify supplementing Abilify Maintena. Continue to monitor on the inpatient unit. Continue other medications and care as ordered. Justification for Cont. Inpt. Risk for decompensation in less restrictive environment. Discharge Planning Possible end of the week discharge if patient remains improved. Case discussed with counselor. Request HC Surrog/Guard Advoc?: Yes Wally Casarez MD Dec 18, 2017 10:18
[2017-12-18 16:07] VITALS: BP 101/50; PULSE 66; RESP 18; TEMP 98.1; O2SAT 99
[2017-12-19 06:22] VITALS: BP 115/56; PULSE 59; RESP 16; TEMP 96.3; O2SAT 98
[2017-12-19] MEDS: HALOPERIDOL 10 MG TAB PO SCH ×2 (08:42→13:01)
[2017-12-19] MEDS: DIVALPROEX SODIUM E.R. 500 MG TAB PO SCH (08:42)
[2017-12-19] MEDS: NICOTINE 21 MG/24 HR PATCH T-DERMAL SCH (08:42)
[2017-12-19] MEDS: DIVALPROEX SODIUM E.R. 250 MG TAB PO SCH (08:42)
[2017-12-19] MEDS: ARIPiprazole 10 MG TAB PO SCH (08:42)
[2017-12-19] MEDS: LORazepam 1 MG TAB PO PRN (08:42)
--- NOTE | 2017-12-19 11:27 | HHI.PYPN ---
Subjective Chief Complaint: Psychosis Remarks Patient seen and examined with nurse. Chart reviewed. Case discussed with nursing staff. Nurse notes that patient remains fairly paranoid and won't eat food off tray from cafeteria. Instead, staff has to take his tray into the nursing station and bring out individual food items to him. On my examination today, patient is in good spirits. His thought process remains a little tangential, but he seems to be looking forward to going home soon. He tells me that he is "missing out on the e[employer]ama." He relates that he needs to eat heartily as he has "got an important game coming up." No SI/HI. No side effects from medications. No physical complaints. Review of Systems ROS Limitations: Psychotic, Poor Historian Except as stated in HPI: all other systems reviewed are Neg Mental Status Examination Appearance: Appropriate (grooming is considerably improved today) Consciousness: Alert Orientation: Person Motor Activity: Other (no abnormal motor movements noted) Speech: Unremarkable Language: Adequate Attention and Concentration: Inadequate Mood: Appropriate Affect: Euthymic Thought Process & Associations: Tangential Thought Content: Appropriate Hallucination Type: None Delusion Type: Paranoid Suicidal Ideation: No Homicidal Ideation: No Insight: Poor Judgment: Poor Results Labs Labs reviewed Vitals/IOs Vital Signs Date Time Temp Pulse Resp B/P (MAP) Pulse Ox O2 Delivery O2 Flow Rate FiO2 12/19/17 06:22 96.3 59 16 115/56 (75) 98 Assessment & Plan Problem List: (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 Continue to monitor on the high acuity unit. Continue other medications and care as ordered. Justification for Cont. Inpt. Medication changes. Impairment in reality construction. High risk for decompensation in less restrictive environment. Discharge Planning Pending psychiatric stabilization. Request HC Surrog/Guard Advoc?: Yes Wally Casarez MD Dec 19, 2017 11:27
[2017-12-19] MEDS: HALOPERIDOL 5 MG TAB PO SCH (18:00)
[2017-12-20 05:59] VITALS: BP 102/60; PULSE 55; RESP 17; TEMP 97.3; O2SAT 100
[2017-12-20] MEDS: HALOPERIDOL 5 MG TAB PO SCH ×3 (09:00→18:14)
[2017-12-20] MEDS: DIVALPROEX SODIUM E.R. 250 MG TAB PO SCH (09:00)
[2017-12-20] MEDS: DIVALPROEX SODIUM E.R. 500 MG TAB PO SCH (09:00)
[2017-12-20] MEDS: NICOTINE 21 MG/24 HR PATCH T-DERMAL SCH (09:00)
--- NOTE | 2017-12-20 09:30 | HHI.PYPN ---
Subjective Chief Complaint: Psychosis Remarks Patient seen and examined. Chart reviewed. Case discussed with nursing staff. Case discussed in treatment team. On my examination today, the patient is in good spirits. He does remain a little bit irritable. Thought process remains tangential. No SI or HI. No side effects from medications. No physical complaints. Review of Systems ROS Limitations: Psychotic, Poor Historian Except as stated in HPI: all other systems reviewed are Neg Mental Status Examination Appearance: Appropriate (grooming and hygiene are improved versus admission) Consciousness: Alert Orientation: Person Motor Activity: Other (no motoric abnormalities noted) Speech: Unremarkable Language: Adequate Attention and Concentration: Inadequate Mood: Appropriate Affect: Euthymic Thought Process & Associations: Tangential Thought Content: Appropriate Hallucination Type: None Delusion Type: Paranoid (perhaps somewhat decreased today) Suicidal Ideation: No Homicidal Ideation: No Insight: Poor Judgment: Poor Results Labs Labs reviewed. No new labs. 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 This medication is supplementing recent initiation of Abilify Maintena. Continue to monitor on the inpatient unit. Continue other medications and care as ordered. Justification for Cont. Inpt. Impairment in reality construction. Risk for decompensation in less restrictive environment. Discharge Planning Possible discharge sometime next week. Case discussed with counselor who will try to reach out the patient's mother. Request HC Surrog/Guard Advoc?: Yes Wally Casarez MD Dec 20, 2017 09:30
--- NOTE | 2017-12-20 09:58 | PD.TTN ---
Patient Problems 1. Discharge planning 2. Medication compliance 3. Knowledge deficit 4. Lack of coping skills Progress Toward Goals Provider Present: Dr. Adrianna Casarez Provider Input: 12/06/17 still meets criteria , disorganized and medications increased / has to remain for further med adjustment / stabilization CBC Abnormalities, start on Abilify when blood issue us resolved.\ 12/20/17 Patient continues to present parnoid meeting criteria. Patient's medications are being adjusted. Nurse(s) Input: 12/20/17 Patient's nurse reports patient is paranoid, medication compliant, improving slowly, continues to be selective on eating. Psychiatric Counselors Present: Angel Dobbins Jr., [facility], Anita Aburto, [facility] , Bety Tony, [facility] Psych Therapist Input: 12/06/17 family and room mate were contacted for collateral for anticipated discharge/ discharge planning have not sat w/ patient since admission. 12/20/17 Patient made good eye contact. Patient continues to present with confused and disorganized thoughts. Patient's insight is poor. Patient is exit seeking. Patient is very limited what patient will eat believes food is poisoned. Group Spec/RT/OT/MENDOZA Present: Nayeli uBllock, [employer], Maurice Correa, OT, Atul Bethea, MENDOZA Group Spec/RT/OT/MENDOZA Input: 12/06/17 limited attendance Isolates to self, guarded, needs alot of encouragement to attend the group activities. 12/20/17 Patient is selective in attending groups. Patient Gudelia Lau [facility] Dec 20, 2017 09:58
[2017-12-20] MEDS: LORazepam 1 MG TAB PO PRN (13:42)
[2017-12-20 18:00] VITALS: BP 101/65; PULSE 78; RESP 16; TEMP 98.3; O2SAT 98
[2017-12-20] MEDS: diphenhydrAMINE HCL 50 MG CAP PO PRN (21:11)
[2017-12-21 06:25] VITALS: BP 97/65; PULSE 60; RESP 16; TEMP 97; O2SAT 100
[2017-12-21] MEDS: DIVALPROEX SODIUM E.R. 250 MG TAB PO SCH (08:15)
[2017-12-21] MEDS: DIVALPROEX SODIUM E.R. 500 MG TAB PO SCH (08:16)
[2017-12-21] MEDS: HALOPERIDOL 5 MG TAB PO SCH ×3 (08:20→16:57)
[2017-12-21] MEDS: NICOTINE 21 MG/24 HR PATCH T-DERMAL SCH (08:23)
--- NOTE | 2017-12-21 15:45 | HHI.PYPN ---
Subjective Chief Complaint: Psychosis Remarks Pt seen and discussed with staff. He has been more paranoid today and has been peering around corners and crouching under window. He was irritable with mother during phone call. He is compliant with medications. Mental Status Examination Appearance: Appropriate (grooming and hygiene are improved versus admission) Consciousness: Alert Orientation: Person Motor Activity: Other (no motoric abnormalities noted) Speech: Unremarkable Language: Adequate Attention and Concentration: Inadequate Mood: Irritable Affect: Flat Thought Process & Associations: Tangential Thought Content: Appropriate Hallucination Type: None Delusion Type: Paranoid Suicidal Ideation: No Suicidal Plan: No Suicidal Intention: No Homicidal Ideation: No Homicidal Plan: No Insight: Poor Judgment: Poor Results Vitals/IOs Vital Signs Date Time Temp Pulse Resp B/P (MAP) Pulse Ox O2 Delivery O2 Flow Rate FiO2 12/21/17 06:25 97.0 60 16 97/65 (76) 100 Assessment & Plan Problem List: (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 Estimated LOS: days Justification for Cont. Inpt. impairments in reality testing Request HC Surrog/Guard Advoc?: Yes Laisha Rey MD Dec 21, 2017 15:45
[2017-12-21 18:02] VITALS: BP 116/55; PULSE 73; RESP 17; TEMP 97.1; O2SAT 100
[2017-12-22 05:54] VITALS: BP 128/65; PULSE 63; RESP 17; TEMP 99; O2SAT 95
[2017-12-22] MEDS: DIVALPROEX SODIUM E.R. 250 MG TAB PO SCH (09:18)
[2017-12-22] MEDS: HALOPERIDOL 5 MG TAB PO SCH ×3 (09:18→17:18)
[2017-12-22] MEDS: DIVALPROEX SODIUM E.R. 500 MG TAB PO SCH (09:19)
[2017-12-22] MEDS: NICOTINE 21 MG/24 HR PATCH T-DERMAL SCH (09:19)
[2017-12-22] MEDS: LORazepam 1 MG TAB PO PRN (10:37)
--- NOTE | 2017-12-22 15:25 | HHI.PYPN ---
Subjective Chief Complaint: Psychosis Remarks Pt seen and discussed with staff.Last night staff report he was crawling on floor. He was pleasant and cooperative and took medications today. He has been somewhat loud and intrusive but behavior is less bizarre today. No SI/HI Mental Status Examination Appearance: Appropriate (grooming and hygiene are improved versus admission) Consciousness: Alert Orientation: Person Motor Activity: Other (no motoric abnormalities noted) Speech: Unremarkable Language: Adequate Attention and Concentration: Inadequate Mood: Good Affect: Flat Thought Process & Associations: Tangential Thought Content: Appropriate Hallucination Type: None Delusion Type: Paranoid Suicidal Ideation: No Suicidal Plan: No Suicidal Intention: No Homicidal Ideation: No Homicidal Plan: No Insight: Poor Judgment: Poor Results Vitals/IOs Vital Signs Date Time Temp Pulse Resp B/P (MAP) Pulse Ox O2 Delivery O2 Flow Rate FiO2 12/22/17 05:54 99.0 63 17 128/65 (86) 95 Assessment & Plan Problem List: (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 Estimated LOS: days Justification for Cont. Inpt. impairments in reality testing Request HC Surrog/Guard Advoc?: Yes Laisha Rey MD Dec 22, 2017 15:25
[2017-12-22 15:29] VITALS: BP 109/54; PULSE 66; RESP 18; TEMP 98; O2SAT 99
[2017-12-23 05:31] VITALS: BP 96/50; PULSE 48; RESP 16; TEMP 97.9; O2SAT 97
[2017-12-23] MEDS: DIVALPROEX SODIUM E.R. 250 MG TAB PO SCH (08:39)
[2017-12-23] MEDS: DIVALPROEX SODIUM E.R. 500 MG TAB PO SCH (08:39)
[2017-12-23] MEDS: HALOPERIDOL 5 MG TAB PO SCH ×3 (08:40→17:47)
[2017-12-23] MEDS: NICOTINE 21 MG/24 HR PATCH T-DERMAL SCH (08:40)
--- NOTE | 2017-12-23 09:26 | HHI.PYPN ---
Subjective Chief Complaint: Psychosis Remarks Patient seen and examined with nurse. Chart reviewed. Case discussed with nursing staff who reports that the patient remains somewhat paranoid but this is decreasing. Case discussed with counselor, whom I have instructed to reach out to patient's mother. I see from counselors notes that mother is supportive of ongoing psychiatric hospitalization for further stabilization. On my examination today, patient describes his mood as "pretty good." Thought process remains a little scattered but is generally more organized. 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 He denies any suicidal or homicidal ideation. Denies any audiovisual hallucinations. Denies any side effects from medications. No acute physical complaints. Review of Systems ROS Limitations: Poor Historian Except as stated in HPI: all other systems reviewed are Neg Mental Status Examination Appearance: Appropriate Consciousness: Alert Orientation: Person, Place (at least) Motor Activity: Other (no abnormal motor movements noted) Speech: Unremarkable Language: Adequate Attention and Concentration: Inadequate (improving) Mood: Good Affect: Blunt (more reactive today) Thought Process & Associations: Tangential (more organized today) Thought Content: Appropriate Hallucination Type: None Delusion Type: Paranoid (decreasing) Suicidal Ideation: No Suicidal Plan: No Suicidal Intention: No Homicidal Ideation: No Homicidal Plan: No Homicidal Intention: No Insight: Poor Judgment: Poor Results Labs Labs reviewed. Patient refused x-ray of the foot but no longer appears to have a limping gait. 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 Continue current psychotropics as ordered. Continue to monitor on the inpatient psychiatric unit. Continue other care as ordered. Justification for Cont. Inpt. Risk for decompensation in less restrictive environment. Discharge Planning Pending psychiatric stabilization. Request HC Surrog/Guard Advoc?: Yes Wally Casarez MD Dec 23, 2017 09:26
[2017-12-23 15:30] VITALS: BP 100/55; PULSE 62; RESP 18; TEMP 98.7; O2SAT 99
[2017-12-23] MEDS: LORazepam 1 MG TAB PO PRN (15:34)
[2017-12-24 06:10] VITALS: BP 100/53; PULSE 60; RESP 18; TEMP 97.1; O2SAT 99
[2017-12-24] MEDS: NICOTINE 21 MG/24 HR PATCH T-DERMAL SCH (08:46)
[2017-12-24] MEDS: HALOPERIDOL 5 MG TAB PO SCH ×3 (08:47→18:24)
[2017-12-24] MEDS: DIVALPROEX SODIUM E.R. 250 MG TAB PO SCH (08:47)
[2017-12-24] MEDS: LORazepam 1 MG TAB PO PRN (08:47)
[2017-12-24] MEDS: DIVALPROEX SODIUM E.R. 500 MG TAB PO SCH (08:47)
--- NOTE | 2017-12-24 09:48 | HHI.PYPN ---
Subjective Chief Complaint: Psychosis Remarks Patient seen and examined. Chart reviewed. Case discussed in treatment team. Case discussed with nursing staff who reports the patient had an outburst at breakfast. He had to be placed in the short hallway because of his behaviors. I find the patient in the short perez, yelling out. "I'm not talking loud! I'm a Daniele!" Affect is angry, and patient says that he is upset at "different people with different ages making noises! Can't eat right!" He is paranoid and internally stimulated. No side effects from medications. No physical complaints. Review of Systems ROS Limitations: Psychotic, Poor Historian Except as stated in HPI: all other systems reviewed are Neg Mental Status Examination Appearance: Disheveled Consciousness: Alert Orientation: Person, Place (at least) Motor Activity: Other (no motoric abnormalities noted) Speech: Unremarkable Language: Adequate Attention and Concentration: Inadequate (improving) Mood: Angry Affect: Irritable, Other (dysphoric) Thought Process & Associations: Tangential Thought Content: Appropriate Hallucination Type: None Delusion Type: Paranoid Suicidal Ideation: No Suicidal Plan: No Suicidal Intention: No Homicidal Ideation: No Homicidal Plan: No Homicidal Intention: No Insight: Poor Judgment: Poor Results Labs Labs reviewed. No new labs. 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 Unclear if this represents day-to-day variation or a genuine worsening of patient's condition. I will check an updated set of basic labs including VPA and ammonia level to ensure there is no organic cause and to ensure that VPA level remains adequate. To consider further titration of Haldol , although dose is already robust (45mg/day), and this is supplementing Abilify Maintena administered on 12/11. Continue to monitor on high acuity unit. Continue other medications and care as ordered. Justification for Cont. Inpt. Impairment in reality construction. Risk for decompensation and less restrictive environment. Discharge Planning Pending psychiatric stabilization. [facility]. Request HC Surrog/Guard Advoc?: Yes Wally Casarez MD Dec 24, 2017 09:48
--- NOTE | 2017-12-24 13:11 | PD.TTN ---
Patient Problems 1. Discharge planning 2. Medication compliance 3. Knowledge deficit 4. Lack of coping skills Progress Toward Goals Provider Present: Dr. Adrianna Casarez Provider Input: 12/06/17 still meets criteria , disorganized and medications increased / has to remain for further med adjustment / stabilization CBC Abnormalities, start on Abilify when blood issue us resolved.\ 12/20/17 Patient continues to present parnoid meeting criteria. Patient's medications are being adjusted. 12/24/17 Patient's medication is being adjusted. Patient continues to not be stablized Nurse(s) Input: 12/20/17 Patient's nurse reports patient is paranoid, medication compliant, improving slowly, continues to be selective on eating. 12/24/16 Nurse reports patient is labile, shouting, upset reporting no one is helping Psychiatric Counselors Present: Gudelia Lau, [facility], Angel Dobbins Jr., [email or web address]], Aniat Aburto, [facility], Bety Tony, [facility] Psych Therapist Input: 12/06/17 family and room mate were contacted for collateral for anticipated discharge/ discharge planning have not sat w/ patient since admission. 12/20/17 Patient made good eye contact. Patient continues to present with confused and disorganized thoughts. Patient's insight is poor. Patient is exit seeking. Patient is very limited what patient will eat believes food is poisoned. 12/24/17 Patient presents paranoid, no insight, guarded, exit seeking. Patient's doctor [facility] Group Spec/RT/OT/MENDOZA Present: Nayeli Bullock, [employer], Maurice Correa, OT, Atul Bethea, MENDOZA Group Spec/RT/OT/MENDOZA Input: 12/06/17 limited attendance Isolates to self, guarded, needs alot of encouragement to attend the group activities. 12/20/17 Patient is selective in attending groups. 12/24/17 Patient does not attend any groups Gudelia Lau [facility] Dec 24, 2017 13:11
[2017-12-24 16:40] VITALS: BP 173/82; PULSE 56; RESP 20; TEMP 98.8; O2SAT 98
[2017-12-24 18:21] VITALS: BP 95/52; PULSE 65; RESP 17; TEMP 97.7; O2SAT 99
[2017-12-25 06:01] VITALS: BP 90/55; PULSE 46; RESP 18; TEMP 98.5; O2SAT 95
[2017-12-25] MEDS: DIVALPROEX SODIUM E.R. 500 MG TAB PO SCH (08:09)
[2017-12-25] MEDS: NICOTINE 21 MG/24 HR PATCH T-DERMAL SCH (08:09)
[2017-12-25] MEDS: DIVALPROEX SODIUM E.R. 250 MG TAB PO SCH (08:09)
[2017-12-25] MEDS: HALOPERIDOL 5 MG TAB PO SCH ×3 (08:10→18:41)
[2017-12-25] MEDS: LORazepam 1 MG TAB PO PRN ×2 (11:07→20:18)
--- NOTE | 2017-12-25 13:44 | HHI.PYPN ---
Subjective Chief Complaint: Psychosis Remarks Reviewed electronic medical record, labs, discuss case with staff. Patient had lab work ordered this morning which he refused to have drawn. Will reattempt to obtain labs tomorrow. Patient remains confused and disorganized. He was observed walking slumped over past the nurses station so as to avoid being seen through the windows. Patient continues to be paranoid but, he does not give an explanation for this behavior. Medication will be adjusted pending outcome of labs. Mental Status Examination Appearance: Disheveled Consciousness: Alert Orientation: Person, Place (at least) Motor Activity: Other (no motoric abnormalities noted) Speech: Unremarkable Language: Adequate Attention and Concentration: Inadequate (improving) Mood: Angry Affect: Irritable, Other (dysphoric) Thought Process & Associations: Tangential Thought Content: Appropriate Hallucination Type: None Delusion Type: Paranoid Suicidal Ideation: No Suicidal Plan: No Suicidal Intention: No Homicidal Ideation: No Homicidal Plan: No Homicidal Intention: No Insight: Poor Judgment: Poor Results Vitals/IOs Vital Signs Date Time Temp Pulse Resp B/P (MAP) Pulse Ox O2 Delivery O2 Flow Rate FiO2 12/25/17 06:01 98.5 46 18 90/55 (67) 95 Assessment & Plan Problem List: (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 Thought processes disorganized and he seems internally stimulated. Medication titration will occur pending outcome of labs. Justification for Cont. Inpt. Moving this patient to a lower level of care would result in decompensation. Request HC Surrog/Guard Advoc?: Yes Cordelia Yanez Dec 25, 2017 13:44
[2017-12-25 14:41] LABS: AUTOMATED NEUTROPHIL # 1.2 TH/MM3 (1.8-7.7); BASOPHIL # 0.1 TH/MM3 (0-0.2); BASOPHIL % 1.5 % (0.0-2.0); EOSINOPHIL # 0.5 TH/MM3 (0-0.4); EOSINOPHIL % 12.1 % (0.0-4.0); HEMATOCRIT 36.7 % (39.0-51.0); HEMOGLOBIN 12.3 GM/DL (13.0-17.0); LYMPH % 41.9 % (9.0-44.0); LYMPHOCYTE # 1.6 TH/MM3 (1.0-4.8); MEAN CELL VOLUME 88.6 FL (80.0-100.0); MEAN CORPUSCULAR HEMOGLOBIN 29.6 PG (27.0-34.0); MEAN CORPUSCULAR HGB CONC 33.4 % (32.0-36.0); MEAN PLATELET VOLUME 8.3 FL (7.0-11.0); MONO % 13.7 % (0.0-8.0); MONOCYTE # 0.5 TH/MM3 (0-0.9); NEUT % 30.8 % (16.0-70.0); PLATELET COUNT 148 TH/MM3 (150-450); RED BLOOD COUNT 4.14 MIL/MM3 (4.50-5.90); WHITE BLOOD COUNT 3.9 TH/MM3 (4.0-11.0)
[2017-12-25 15:03] LABS: ALBUMIN 3.6 GM/DL (3.4-5.0); AST (GOT) 7 U/L (15-37); BICARBONATE 29.8 MEQ/L (21.0-32.0); BLOOD UREA NITROGEN 17 MG/DL (7-18); CALCIUM 8.6 MG/DL (8.5-10.1); CHLORIDE 102 MEQ/L (98-107); CREATININE 1.01 MG/DL (0.60-1.30); GLOMERULAR FILTRATION RATE 103 ML/MIN (>89); GLUCOSE,RANDOM 84 MG/DL (74-106); SODIUM (NA) 138 MEQ/L (136-145)
[2017-12-25 15:06] LABS: ALKALINE PHOSPHATASE 39 U/L (45-117); ALT (GPT) 11 U/L (12-78); TOTAL BILIRUBIN ADULT 0.2 MG/DL (0.2-1.0); TOTAL PROTEIN 6.4 GM/DL (6.4-8.2)
[2017-12-25 16:50] VITALS: BP 94/54; PULSE 56; RESP 18; TEMP 98.4; O2SAT 98
[2017-12-25] MEDS: diphenhydrAMINE HCL 50 MG CAP PO PRN (20:18)
[2017-12-26 05:42] VITALS: BP 105/56; PULSE 52; RESP 18; TEMP 96.7; O2SAT 96
[2017-12-26] MEDS: DIVALPROEX SODIUM E.R. 500 MG TAB PO SCH (08:00)
[2017-12-26] MEDS: NICOTINE 21 MG/24 HR PATCH T-DERMAL SCH (08:01)
[2017-12-26] MEDS: DIVALPROEX SODIUM E.R. 250 MG TAB PO SCH (08:01)
[2017-12-26] MEDS: HALOPERIDOL 5 MG TAB PO SCH ×3 (08:01→17:32)
[2017-12-26 17:00] VITALS: BP 99/54; PULSE 74; RESP 16; TEMP 98.1; O2SAT 100
[2017-12-26] MEDS: LORazepam 1 MG TAB PO PRN (20:57)
[2017-12-26] MEDS: diphenhydrAMINE HCL 50 MG CAP PO PRN (20:57)
[2017-12-27 05:48] VITALS: BP 97/57; PULSE 53; RESP 16; TEMP 98.3; O2SAT 96
[2017-12-27] MEDS: DIVALPROEX SODIUM E.R. 500 MG TAB PO SCH (08:09)
[2017-12-27] MEDS: NICOTINE 21 MG/24 HR PATCH T-DERMAL SCH (08:10)
[2017-12-27] MEDS: HALOPERIDOL 5 MG TAB PO SCH ×3 (08:10→17:36)
--- NOTE | 2017-12-27 14:08 | HHI.PYPN ---
Subjective Chief Complaint: Psychosis Remarks Reviewed electronic medical record discussed case with staff. Follow-up was performed in hallway with staff present. Patient ambulating without difficulty. No psycho motor abnormalities noted. His speech is clear, and organized. He interacted more today however he moved continuously throughout our conversation pacing back and forth. His mood seems good and his affect is euthymic. He has been observed and the day room interacting appropriately with other patients. Staff did report he had a couple incidents of crouching down walking past the nursing station in a paranoid manner. Mental Status Examination Appearance: Disheveled Consciousness: Alert Orientation: Person, Place (at least) Motor Activity: Other (no motoric abnormalities noted) Speech: Rapid Language: Adequate Fund of Knowledge: Inadequate Attention and Concentration: Inadequate (improving) Mood: Appropriate, Good Affect: Euthymic Thought Process & Associations: Tangential Thought Content: Appropriate Hallucination Type: None Delusion Type: Paranoid Suicidal Ideation: No Suicidal Plan: No Suicidal Intention: No Homicidal Ideation: No Homicidal Plan: No Homicidal Intention: No Insight: Poor Judgment: Poor Results Vitals/IOs Vital Signs Date Time Temp Pulse Resp B/P (MAP) Pulse Ox O2 Delivery O2 Flow Rate FiO2 12/27/17 05:48 98.3 53 16 97/57 (70) 96 Assessment & Plan Problem List: (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 His condition has improved somewhat however there is still room for improvement. We will continue with treatment plan, recheck labs, and evaluate medication regimen at that time. Justification for Cont. Inpt. Moving this patient to a lower level of care would result in a decompensation. Request HC Surrog/Guard Advoc?: Yes Cordelia Yanez Dec 27, 2017 14:08
[2017-12-27] MEDS: diphenhydrAMINE HCL 50 MG CAP PO PRN (20:20)
[2017-12-27] MEDS: LORazepam 1 MG TAB PO PRN (20:20)
[2017-12-28 06:16] VITALS: BP 98/56; PULSE 55; RESP 17; TEMP 97.7; O2SAT 97
[2017-12-28] MEDS: DIVALPROEX SODIUM E.R. 500 MG TAB PO SCH (08:21)
[2017-12-28] MEDS: NICOTINE 21 MG/24 HR PATCH T-DERMAL SCH (08:21)
[2017-12-28] MEDS: HALOPERIDOL 5 MG TAB PO SCH ×3 (08:21→17:02)
--- NOTE | 2017-12-28 13:26 | HHI.PYPN ---
Subjective Chief Complaint: Psychosis Remarks Patient was seen and case discussed with nursing. Patient is internally stimulated, psychomotor retardation, loose associations. No aggressive behaviors on the unit. Ammonia was elevated to be days ago we will get a repeat level. Mental Status Examination Appearance: Disheveled Consciousness: Alert Orientation: Person, Place (at least) Motor Activity: Other (no motoric abnormalities noted) Speech: Rapid Language: Adequate Fund of Knowledge: Inadequate Attention and Concentration: Inadequate (improving) Mood: Appropriate, Good Affect: Euthymic Thought Process & Associations: Loose associations Thought Content: Bizarre thinking Hallucination Type: None Delusion Type: Paranoid Suicidal Ideation: No Suicidal Plan: No Suicidal Intention: No Homicidal Ideation: No Homicidal Plan: No Homicidal Intention: No Insight: Poor Judgment: Poor Results Vitals/IOs Vital Signs Date Time Temp Pulse Resp B/P (MAP) Pulse Ox O2 Delivery O2 Flow Rate FiO2 12/28/17 06:16 97.7 55 17 98/56 (70) 97 Assessment & Plan Problem List: (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 Inpt. Patient would decompensate in a less restrictive setting Request HC Surrog/Guard Advoc?: Yes Todd Rinaldi DO Dec 28, 2017 13:26
[2017-12-28 17:51] VITALS: BP 104/51; PULSE 69; RESP 18; TEMP 98.5; O2SAT 99
[2017-12-28] MEDS: diphenhydrAMINE HCL 50 MG CAP PO PRN (21:36)
[2017-12-29 05:41] VITALS: BP 101/58; PULSE 52; RESP 17; TEMP 98.1; O2SAT 97
[2017-12-29] MEDS: DIVALPROEX SODIUM E.R. 500 MG TAB PO SCH (08:32)
[2017-12-29] MEDS: HALOPERIDOL 5 MG TAB PO SCH ×3 (08:32→17:12)
[2017-12-29] MEDS: NICOTINE 21 MG/24 HR PATCH T-DERMAL SCH (08:33)
--- NOTE | 2017-12-29 13:25 | HHI.PYPN ---
Subjective Chief Complaint: Psychosis Remarks Patient was seen and case discussed with nursing. Patient remains loud and internally stimulated. However is easily redirectable and behaving well on the unit. Thought process remains loose, speech is hyperverbal and pressured. Mental Status Examination Appearance: Disheveled Consciousness: Alert Orientation: Person, Place (at least) Motor Activity: Other (no motoric abnormalities noted) Speech: Rapid Language: Adequate Fund of Knowledge: Inadequate Attention and Concentration: Inadequate (improving) Mood: Appropriate, Good Affect: Euthymic Thought Process & Associations: Loose associations Thought Content: Bizarre thinking Hallucination Type: None Delusion Type: Paranoid Suicidal Ideation: No Suicidal Plan: No Suicidal Intention: No Homicidal Ideation: No Homicidal Plan: No Homicidal Intention: No Insight: Poor Judgment: Poor Results Vitals/IOs Vital Signs Date Time Temp Pulse Resp B/P (MAP) Pulse Ox O2 Delivery O2 Flow Rate FiO2 12/29/17 05:41 98.1 52 17 101/58 (72) 97 Assessment & Plan Problem List: (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 Inpt. Patient will decompensate in a less restrictive setting Request HC Surrog/Guard Advoc?: Yes Todd Rinaldi DO Dec 29, 2017 13:24
[2017-12-29 17:28] VITALS: BP 110/56; PULSE 58; RESP 18; TEMP 98.7; O2SAT 99
[2017-12-29] MEDS: diphenhydrAMINE HCL 50 MG CAP PO PRN (20:36)
[2017-12-30 05:57] VITALS: BP 98/47; PULSE 50; RESP 18; TEMP 98.2; O2SAT 97
[2017-12-30] MEDS: DIVALPROEX SODIUM E.R. 500 MG TAB PO SCH (08:10)
[2017-12-30] MEDS: HALOPERIDOL 5 MG TAB PO SCH ×3 (08:10→17:45)
[2017-12-30] MEDS: NICOTINE 21 MG/24 HR PATCH T-DERMAL SCH (08:11)
[2017-12-30 09:35] LABS: AUTOMATED NEUTROPHIL # 1.2 TH/MM3 (1.8-7.7); BASOPHIL % 1.2 % (0.0-2.0); EOSINOPHIL # 0.3 TH/MM3 (0-0.4); EOSINOPHIL % 7.7 % (0.0-4.0); HEMOGLOBIN 14.5 GM/DL (13.0-17.0); LYMPH % 42.1 % (9.0-44.0); LYMPHOCYTE # 1.4 TH/MM3 (1.0-4.8); MEAN CELL VOLUME 89.1 FL (80.0-100.0); MEAN CORPUSCULAR HEMOGLOBIN 29.3 PG (27.0-34.0); MEAN CORPUSCULAR HGB CONC 32.9 % (32.0-36.0); MEAN PLATELET VOLUME 8.5 FL (7.0-11.0); MONO % 14.3 % (0.0-8.0); MONOCYTE # 0.5 TH/MM3 (0-0.9); NEUT % 34.7 % (16.0-70.0); PLATELET COUNT 148 TH/MM3 (150-450); RED BLOOD COUNT 4.94 MIL/MM3 (4.50-5.90); RED CELL DISTRIBUTION WIDTH 14.3 % (11.6-17.2); WHITE BLOOD COUNT 3.4 TH/MM3 (4.0-11.0)
[2017-12-30 09:59] LABS: ALBUMIN 4.1 GM/DL (3.4-5.0); BICARBONATE 32.8 MEQ/L (21.0-32.0); BLOOD UREA NITROGEN 14 MG/DL (7-18); CALCIUM 9.1 MG/DL (8.5-10.1); CHLORIDE 103 MEQ/L (98-107); CREATININE 1.03 MG/DL (0.60-1.30); GLOMERULAR FILTRATION RATE 101 ML/MIN (>89); GLUCOSE,RANDOM 60 MG/DL (74-106); SODIUM (NA) 140 MEQ/L (136-145)
[2017-12-30 10:00] LABS: ALT (GPT) 15 U/L (12-78); AST (GOT) 13 U/L (15-37)
[2017-12-30 10:03] LABS: ALKALINE PHOSPHATASE 38 U/L (45-117); TOTAL BILIRUBIN ADULT 0.3 MG/DL (0.2-1.0); TOTAL PROTEIN 7.6 GM/DL (6.4-8.2)
--- NOTE | 2017-12-30 11:15 | HHI.PYPN ---
Subjective Chief Complaint: Psychosis Remarks Patient seen and examined with nurse. Chart reviewed. Case discussed with nursing staff. Patient noted to be medication compliant and more organized by nursing staff. On my examination today, the patient is appropriate in conversation. His hygiene is improved. His thought process is more organized. He denies any SI or HI. He denies any AVH. He denies side effects from medications. No acute physical complaints. Spoke with patient's mother over the phone. She feels that the patient is much improved based on her contact with him and would like to have him home tomorrow morning. Review of Systems Except as stated in HPI: all other systems reviewed are Neg Mental Status Examination Appearance: Appropriate Consciousness: Alert Orientation: Person, Place, Date/Time (Approximate) Motor Activity: Other (No abnormal motor movements noted) Speech: Unremarkable Language: Adequate Fund of Knowledge: Inadequate Attention and Concentration: Other (Improved versus admission) Mood: Appropriate, Good Affect: Euthymic Thought Process & Associations: Circumstantial Thought Content: Appropriate Hallucination Type: None Delusion Type: None Suicidal Ideation: No Suicidal Plan: No Suicidal Intention: No Homicidal Ideation: No Homicidal Plan: No Homicidal Intention: No Insight: Poor Judgment: Poor Results Labs Test 12/30/17 09:17 White Blood Count 3.4 TH/MM3 Red Blood Count 4.94 MIL/MM3 Hemoglobin 14.5 GM/DL Hematocrit 44.0 % Mean Corpuscular Volume 89.1 FL Mean Corpuscular Hemoglobin 29.3 PG Mean Corpuscular Hemoglobin Concent 32.9 % Red Cell Distribution Width 14.3 % Platelet Count 148 TH/MM3 Mean Platelet Volume 8.5 FL Neutrophils (%) (Auto) 34.7 % Lymphocytes (%) (Auto) 42.1 % Monocytes (%) (Auto) 14.3 % Eosinophils (%) (Auto) 7.7 % Basophils (%) (Auto) 1.2 % Neutrophils # (Auto) 1.2 TH/MM3 Lymphocytes # (Auto) 1.4 TH/MM3 Monocytes # (Auto) 0.5 TH/MM3 Eosinophils # (Auto) 0.3 TH/MM3 Basophils # (Auto) 0.0 TH/MM3 CBC Comment DIFF FINAL Differential Comment Blood Urea Nitrogen 14 MG/DL Creatinine 1.03 MG/DL Random Glucose 60 MG/DL Total Protein 7.6 GM/DL Albumin 4.1 GM/DL Calcium Level 9.1 MG/DL Alkaline Phosphatase 38 U/L Aspartate Amino Transf (AST/SGOT) 13 U/L Alanine Aminotransferase (ALT/SGPT) 15 U/L Total Bilirubin 0.3 MG/DL Sodium Level 140 MEQ/L Potassium Level 4.1 MEQ/L Chloride Level 103 MEQ/L Carbon Dioxide Level 32.8 MEQ/L Anion Gap 4 MEQ/L Estimat Glomerular Filtration Rate 101 ML/MIN Ammonia 33 MCMOL/L Valproic Acid (Depakene) Level 89 MCG/ML Labs reviewed. Leukopenia stable. Thrombocytopenia stable. Depakote level within the therapeutic range. Ammonia level decreased with no evidence of hyperammonemic encephalopathy. 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 Patient would next be due for [place] around 01/08, but patient seems to be doing well with Haldol, and so I have suggested to mother that she and patient discuss with outpatient provider switching instead to Haldol Dec at that time. Continue to monitor on the inpatient unit. Continue other medications and care as ordered. Justification for Cont. Inpt. Final discharge planning. Discharge Planning Anticipate discharge tomorrow, Saturday. Request HC Surrog/Guard Advoc?: Yes Wally Casarez MD Dec 30, 2017 11:15
[2017-12-30] MEDS ORDERED: HALO5TAB PO (12:20)
[2017-12-30] MEDS ORDERED: ARIP10IN IM (12:20)
[2017-12-30] MEDS ORDERED: DEPA500T3 PO (12:20)
[2017-12-30 17:17] VITALS: BP 100/52; PULSE 73; RESP 18; TEMP 98.4; O2SAT 97
[2017-12-31 06:25] VITALS: BP 96/46; PULSE 52; RESP 18; TEMP 98; O2SAT 95
[2017-12-31] MEDS: NICOTINE 21 MG/24 HR PATCH T-DERMAL SCH (09:00)
[2017-12-31] MEDS: DIVALPROEX SODIUM E.R. 500 MG TAB PO SCH (09:03)
[2017-12-31] MEDS: HALOPERIDOL 5 MG TAB PO SCH ×2 (09:04→12:34)
--- NOTE | 2017-12-31 09:29 | HHI.DS ---
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 Mcmanus is a 32-year-old male with a history of schizophrenia who was dropped off at the ED by his mother for psychiatric evaluation. There was some concern that he may have been intoxicated although alcohol level and urine toxicology were both negative. Patient was Avila acted by the ED provider. Patient is well known to the psychiatric service here from multiple previous psychiatric admissions. He was admitted most recently under Dr. Adler in February 2017.Patient seen and examined with nurse. Chart reviewed. Case discussed with nursing staff. On my examination today, the patient presents with prominent thought disorganization. His statements are disconnected from one another, and it is difficult to make sense of his narrative. He does seem to recognize me from our previous psychiatric contacts. He says "I pay people with words. [place] handshake. I got everything straightened out. I was running. A white person through the paper. 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 He denies any audiovisual hallucinations. He exhibits some echopraxia. No harley delusional material. He is disheveled and there does appear to be a self-care deficit. Psychiatric interview is limited because of the patient's current degree of psychiatric decompensation. No acute physical complaints. Tobacco Use In Past 30 Days: No Tobacco Past 30 Days Alcohol Use: Never Hospital Course Patient was admitted to a locked, inpatient psychiatric unit. A general medical consultation was obtained. Appropriate precautions were in place throughout patient's hospital stay. Patient was seen and examined on the unit by psychiatry and also visited by counselor. Psychotropic medications were adjusted. Patient had improvement in presenting psychiatric symptomatology during the course of his hospital stay. There was no evidence of any suicidality or homicidality on the inpatient unit. Patient's behavior improved with the benefit of psychopharmacologic treatment. Grooming and hygiene also improved with treatment and there was no evidence of significant self-care deficit at time of discharge. Collateral information was obtained from the patient's mother. On the day of discharge: Patient seen and examined. Chart reviewed. Case discussed with nursing staff. No behavioral issues noted overnight. Nurse notes that the patient is "doing great" and "interacting well " with peers and staff. Case discussed in treatment team. On my examination today, the patient verbalizes readiness for discharge from the inpatient psychiatric unit today. He denies any suicidal or homicidal ideation, intent or plan on direct questioning and contracts for safety. Mood is good and I can elicit no depressive or hypomanic/manic symptoms. He denies any audiovisual hallucinations. I can elicit no delusional beliefs. Thought process is considerably more linear versus admission. He denies side effects from medications. Education provided to patient regarding discharge medication regimen. He has no physical complaints. Suicide and violence risk assessment on the day of discharge both suggest lower imminent risk from mental illness, and the patient's level of function is adequate for outpatient care. Patient has maximized benefit from this inpatient psychiatric hospital stay and will be discharged home today with psychiatric follow-up as arranged by counselor. Patient is also to follow-up with primary care. Patient to return to psychiatric emergency room for any concerning psychiatric symptoms as part of a general safety plan. Results Blood Pressure 96 / 46 Vital Signs Date Time Temp Pulse Resp B/P (MAP) Pulse Ox O2 Delivery O2 Flow Rate FiO2 12/31/17 06:25 98.0 52 18 96/46 (63) 95 Laboratory Tests Test 12/30/17 09:17 White Blood Count 3.4 TH/MM3 (4.0-11.0) Platelet Count 148 TH/MM3 (150-450) Monocytes (%) (Auto) 14.3 % (0.0-8.0) Eosinophils (%) (Auto) 7.7 % (0.0-4.0) Neutrophils # (Auto) 1.2 TH/MM3 (1.8-7.7) Random Glucose 60 MG/DL (74-106) Alkaline Phosphatase 38 U/L (45-117) Aspartate Amino Transf (AST/SGOT) 13 U/L (15-37) Carbon Dioxide Level 32.8 MEQ/L (21.0-32.0) Anion Gap 4 MEQ/L (5-15) Ammonia 33 MCMOL/L (11-32) Laboratory Results Test 12/02/17 08:15 12/30/17 09:17 Cholesterol Level 108 MG/DL (120-200) HDL Cholesterol 75.3 MG/DL (40.0-60.0) Hemoglobin A1c 6.1 % (4.3-6.0) LDL Cholesterol 19 MG/DL (0-99) Triglycerides Level 69 MG/DL (42-150) Valproic Acid (Depakene) Level 89 MCG/ML (50-100) Summary of Procedures None done Imaging None done Pending results at discharge: No Medications # of Antipsychotic meds at D/C: 2 Appropriate >1 Antipsych meds?: 4 Approp Antipsych med options 1 - Minimum of three failed multiple trials of monotherapy. 2 - Documented plan to taper to monotherapy due to previous use of multiple meds OR cross-taper in progress at D/C. 3 - Documentation of augmentation of Clozapine. 4 - Justification other than those listed in allowable values 1-3, document here : Required multiple antipsychotics for stabilization Discharge Discharge Date: Dec 31, 2017 Discharge Diagnosis: (1) Disorganized schizophrenia Diagnosis: Principal (Stabilized) ICD Code: F20.1 - Disorganized schizophrenia Pt Condition on Discharge: Stable Discharge Disposition: Discharge Home Discharge Instructions Diet Instructions: As Tolerated, No Restrictions Activities you can perform: Weight Bearing as [place] Scheduled Appointment: Luis F Holland Appointment Date: Dec 31, 2017 Appointment Time: 8:00am New Orders: AMMONIA - 1 Week CBC WITH DIFF - 1 Week New Medications: Aripiprazole Maintena Dual Chamber Inj (Abilify Maintena Dual Chamber Inj) 400 Mg Inj 400 MG IM Q28D for Mental Health, #1 SYRINGE 0 Refills This dose of Abilify Maintena is due on 01/08/18. Discuss with your outpatient provider about possibly switching to Haldol Decanoate instead. Divalproex ER (Depakote ER) 500 Mg Daniele 1000 MG PO DAILY for Mental Health for 15 Days, #30 TAB 1 Refill Haloperidol (Haloperidol) 5 Mg Tab 15 MG PO TID for Mental Health for 15 Days, TAB 1 Refill Discontinued Medications: Benztropine (Benztropine) 0.5 Mg Tab 0.5 MG PO BID for MENTAL HEALTH, #60 TAB 0 Refills Divalproex ER (Depakote ER) 500 Mg Daniele 500 MG PO BID for health, #60 TAB Risperidone (Risperdal) 1 Mg Tab 3 MG PO Q12HR for health, #60 TAB Discharge Time <= 30 minutes Mental Status Examination Appearance: Appropriate Consciousness: Alert Orientation: Person, Place, Date/Time (Approximate), Situation Motor Activity: Normal gait, Other (No motoric abnormalities noted) Speech: Unremarkable Language: Adequate Fund of Knowledge: Inadequate Attention and Concentration: Other (Fair, improved versus admission) Mood: Appropriate, Good Affect: Euthymic Thought Process & Associations: Circumstantial (Considerably more linear versus admission) Thought Content: Appropriate Hallucination Type: None Delusion Type: None Suicidal Ideation: No Suicidal Plan: No Suicidal Intention: No Homicidal Ideation: No Homicidal Plan: No Homicidal Intention: No Insight: Poor (Chronic condition) Judgment: Poor (Chronic condition) Discharge/Advance Care Plan Health Problems: (1) Disorganized schizophrenia Goals to promote your health * To prevent worsening of your condition and complications * To maintain your health at the optimal level Directions to meet your goals Take your medications as prescribed Follow your dietary instruction Follow activity as directed Keep your appointments as scheduled Take your immunizations and boosters as scheduled If your symptoms worsen call your PCP, if no PCP go to Urgent Care Center or Emergency Room For 22/04 questions related to your inpatient stay or results of tests pending at discharge, please contact Dr. Wally Casarez at Smoking is Dangerous to Your Health. Avoid second hand smoking Wally Casarez MD Dec 31, 2017 09:28
[2017-12-31] MEDS: LORazepam 1 MG TAB PO PRN (12:34)
--- NOTE | 2018-01-07 11:50 | HHI.PYPN ---
Subjective Chief Complaint: Psychosis Remarks I saw this patient on December 26, 2017. Reviewed electronic medical record and discussed case with staff. Follow-up was performed in the [facility] with nurse present. Patient commented that he had cooperated with his lab draw the day before. He was still somewhat disorganized with his speech at that time. But stated that he would be compliant with medications and care. Mental Status Examination Appearance: Appropriate Consciousness: Alert Orientation: Person, Place, Date/Time (Approximate), Situation Motor Activity: Normal gait, Other (No motoric abnormalities noted) Speech: Unremarkable Language: Adequate Fund of Knowledge: Inadequate Attention and Concentration: Other (Fair, improved versus admission) Mood: Appropriate, Good Affect: Euthymic Thought Process & Associations: Circumstantial (Considerably more linear versus admission) Thought Content: Appropriate Hallucination Type: None Delusion Type: None Suicidal Ideation: No Suicidal Plan: No Suicidal Intention: No Homicidal Ideation: No Homicidal Plan: No Homicidal Intention: No Insight: Poor (Chronic condition) Judgment: Poor (Chronic condition) Assessment & Plan Problem List: (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 Days Justification for Cont. Inpt. Moving patient to a lower level of care would likely result in decompensation. Request HC Surrog/Guard Advoc?: Yes Cordelia Yanez Jan 07, 2018 11:50
== END 2017-12-31 15:05 | disposition home or self-care (01) | DRG 885 ==
LOC: NEPJ 16:32 → NEDA 12-01 07:06 → H260 12-01 08:20 → H270 12-03 16:06
PROVIDERS: ADMIT Psychiatry & Neurology Psychiatry; ATTEND Psychiatry & Neurology Psychiatry
DX: F20.1 Disorganized schizophrenia (principal); D69.6 Thrombocytopenia, unspecified; E87.1 Hypo-osmolality and hyponatremia; R44.3 Hallucinations, unspecified; R47.01 Aphasia; Z91.14 Patient's other noncompliance with medication regimen; D72.819 Decreased white blood cell count, unspecified; F32.9 Major depressive disorder, single episode, unspecified; R73.03 Prediabetes; F10.10 Alcohol abuse, uncomplicated; F17.290 Nicotine dependence, other tobacco product, uncomplicated
CPT/HCPCS: 80048; 80053; 80061; 80164; 80307; 81001; 82140; 83036; 84439; 84443; 85007; 85025; 85027; 93005; 96372; J1630; J2060; Q0163

== ENCOUNTER 2018-01-16 11:50 | Emergency (ER) | payer MEDICARE, OTHER ==
[~2018-01-16] VITALS: Ht 177.8 cm; Wt 70.0 kg
[~2018-01-16 11:50] MED LIST changes: +ARIP10IN IM; -Benztropine PO; +HALO5TAB PO; -RISP1 PO
[2018-01-16 12:07] VITALS: BP 108/55; PULSE 92; RESP 21; TEMP 98.4; O2SAT 98
--- NOTE | 2018-01-16 12:26 | PD ---
HPI Chief Complaint: Edema Time Seen by Provider: 12:17 Travel History International Travel<30 days: No Contact w/Intl Traveler<30days: No Traveled to known affect area: No History of Present Illness HPI 32-year-old -[place] male with history of schizophrenia, presents emergency department with 1 month history of right foot pain and swelling. Patient denies specific injury but states he walks a lot secondary to his mental illness. He states no fever, chills, open wounds or drainage. Pain is localized to the local MIP joint right foot. Patient has calluses to the heel of the right foot. Pain is estimated at 8 out of 10 and worse with ambulation. He denies any other acute issues today. He has no known drug allergies. PFSH Past Medical History Arthritis: No Asthma: No Anxiety: Yes Depression: Yes Heart Rhythm Problems: No Cardiovascular Problems: No (See EMR) High Cholesterol: No Chest Pain: No Congestive Heart Failure: No COPD: No Cerebrovascular Accident: No Diminished Hearing: No Endocrine: No Gastrointestinal Disorders: No GERD: No Genitourinary: No Hiatal Hernia: Yes (INGUINAL HERNIA) Immune Disorder: No Inguinal Hernia: Yes Implanted Vascular Access Dvce: No Kidney Stones: No Musculoskeletal: No Neurologic: No Psychiatric: Yes Reproductive: No Respiratory: No Migraines: No Renal Failure: No Schizophrenia: Yes (PARANOID TYPE) Seizures: No Sleep Apnea: No Ulcer: No PNEUMOCCOCAL Vaccine (Year): 2 Past Surgical History Abdominal Surgery: Yes (INGUINAL HERNIA RIGHT) Cardiac Surgery: No Ear Surgery: No Endocrine Surgery: No Eye Surgery: No Genitourinary Surgery: Yes (INGUINAL HERNIA REPAIR) Oral Surgery: No Thoracic Surgery: No Other Surgery: Yes (SEE E.D. REPORT) Social History Alcohol Use: Yes Tobacco Use: Yes Substance Use: No Allergies-Medications (Allergen,Severity, Reaction): Coded Allergies: No Known Allergies (Verified Adverse Reaction, Unknown, 01/16/18) Reported Meds & Prescriptions Reported Meds & Active Scripts Active Abilify Maintena Dual Chamber Inj (Aripiprazole) 400 Mg Inj 400 Mg IM Q28D This dose of Abilify Maintena is due on 01/08/18. Discuss with your outpatient provider about possibly switching to Haldol Decanoate instead. Haloperidol 5 Mg Tab 15 Mg PO TID 15 Days Depakote ER (Divalproex Sodium) 500 Mg Daniele 1,000 Mg PO DAILY 15 Days Review of Systems General / Constitutional: No: Fever Eyes: No: Visual changes HENT: No: Headaches Cardiovascular: No: Chest Pain or Discomfort Respiratory: No: Shortness of Breath Gastrointestinal: No: Abdominal Pain Genitourinary: No: Dysuria Musculoskeletal: Positive: Arthralgias, Limited ROM, Pain Skin: No Rash Neurologic: No: Weakness Psychiatric: No: Depression Endocrine: No: Polydipsia Hematologic/Lymphatic: No: Easy Bruising Physical Exam Narrative GENERAL: Patient appears in no obvious distress per SKIN: Warm and dry. Normal color. Normal turgor. There is a question of mild erythema over the dorsal right MIP and second toe joint. No obvious signs of cellulitis or open wounds. He does have significant callus to the posterior heel without obvious signs of infection. There are no visible cracks between the webspaces of the toes. HEAD: Atraumatic. Normocephalic. EYES: Pupils equal and round. No scleral icterus. No injection or drainage. ENT: No nasal bleeding or discharge. Mucous membranes pink and moist. Pharynx is clear. Airways patent NECK: Trachea midline. Supple nontender CARDIOVASCULAR: Regular rate and rhythm. RESPIRATORY: No accessory muscle use. Clear to auscultation. Breath sounds equal bilaterally. GASTROINTESTINAL: Abdomen soft, non-tender, nondistended. Hepatic and splenic margins not palpable. MUSCULOSKELETAL: Extremities without clubbing, cyanosis, or edema. No obvious deformities. Patient complains of mild to moderate tenderness with palpation of right dorsal distal foot, without specific point tenderness or crepitus. Range of motion is intact. Neurovascular exam is unremarkable. NEUROLOGICAL: Awake and alert. No obvious cranial nerve deficits. Motor grossly within normal limits. Five out of 5 muscle strength in the arms and legs. Normal speech. PSYCHIATRIC: Appropriate mood and affect; insight and judgment normal. Data Data Last Documented VS Vital Signs Date Time Temp Pulse Resp B/P (MAP) Pulse Ox O2 Delivery O2 Flow Rate FiO2 01/16/18 12:07 98.4 92 21 108/55 (72) 98 Orders Orders Foot, Complete ([id number]) (01/16/18 12:17) Ibuprofen (Motrin) (01/16/18 12:30) Sulfamet-Trimeth Ds 800-160 Mg (Bactrim (01/16/18 12:30) [facility] Medical Decision Making Medical Screen Exam Complete: Yes Emergency Medical Condition: Yes Medical Record Reviewed: Yes Differential Diagnosis Chronic right foot pain. Foot edema. Gout. Arthritis. Cellulitis. Stress fracture. Narrative Course Patient is medically stable at time of exam. Patient is given 600 mg ibuprofen p.o. Patient is given Bactrim DS p.o. X-ray of the right foot is ordered. X-ray shows no acute process. Patient will be continued on Bactrim DS twice daily 7 days. Patient continued on ibuprofen 600 mg 3 times daily #30. Patient is suggested to follow with Dr. Jack, cloth bolt bander senior receptionist for further treatment as needed. Diagnosis Primary Impression: Right foot pain Additional Impression: Cellulitis of foot, right Referrals: Bennett Jack DPM call for appointment Patient Instructions: Cellulitis (ED), General Instructions, Osteoarthritis (ED ) Additional Instructions: X-ray shows no acute process. Patient will be continued on Bactrim DS twice daily 7 days. Patient continued on ibuprofen 600 mg 3 times daily #30. Patient is suggested to follow with Dr. Jack, cloth bolt bander senior receptionist for further treatment as needed. Med/Other Pt SpecificInfo: Prescription(s) given Scripts Ibuprofen (Ibuprofen) 600 Mg Tab 600 MG PO Q8HR Y for PAIN for 10 Days, TAB 0 Refills Prov: Naren Elam MD 01/16/18 Sulfamethoxazole-Trimethoprim (Bactrim DS) 800-160 Mg Tab 1 TAB PO BID for Infection, #14 TAB 0 Refills Prov: Naren Elam MD 01/16/18 Disposition: 01 DISCHARGE HOME Condition: Stable Maurice Estevez Jan 16, 2018 12:26
[2018-01-16] MEDS ORDERED: IBUPROFEN 600 MG TAB PO ONE (12:30)
[2018-01-16] MEDS ORDERED: SULFAMETHOXAZOLE-TRIMETHOPRIM DS 800-160 MG TAB PO ONE (12:30)
[2018-01-16] MEDS ORDERED: IBUP-232 PO (13:24)
[2018-01-16] MEDS ORDERED: BACT800T5 PO (13:24)
--- NOTE | 2018-01-16 14:24 | RADRPT ---
EXAM DATE/TIME: 01/16/2018 12:50 [facility] COMPARISON: No previous studies available for comparison. INDICATIONS : Right foot pain and swelling. No known injury. MEDICAL HISTORY : Schizophrenia. Depression. Anxiety. Substance use. SURGICAL HISTORY : Inguinal hernia repair. ENCOUNTER: Initial ACUITY: 1 week PAIN SCORE: 4/10 LOCATION: Right foot FINDINGS: Moderate soft tissue swelling is seen throughout the mid and forefoot. The bony structures are intact . There is no evidence of acute fracture or dislocation. There is no evidence of significant arthropa thy. CONCLUSION: Soft tissue swelling without evidence of acute bony injury or significant arthropathy. Julius Garvey MD on January 16, 2018 at 14:15 Board Certified Radiologist. This report was verified electronically.
== END 2018-01-16 13:38 | disposition home or self-care (01) ==
LOC: NEPK 11:50
DX: L03.115 Cellulitis of right lower limb (principal); F41.9 Anxiety disorder, unspecified; Z72.0 Tobacco use
CPT/HCPCS: 73630; 99283

== ENCOUNTER 2018-01-19 09:25 | Inpatient (IN) | payer MEDICARE, OTHER ==
[~2018-01-19] VITALS: Ht 177.8 cm; Wt 65.8 kg
[~2018-01-19 09:25] MED LIST changes: +BACT800T5 PO; +IBUP-232 PO
[2018-01-19 09:41] VITALS: BP 122/76; PULSE 94; RESP 20; TEMP 98.4; O2SAT 97
[2018-01-19] MEDS ORDERED: LORazepam 2 MG/ML VIAL IM ONE (10:00)
[2018-01-19] MEDS ORDERED: HALOPERIDOL LACTATE 5 MG/ML AMP IM ONE (10:00)
--- NOTE | 2018-01-19 11:12 | PD ---
HPI Chief Complaint: Psychiatric Symptoms Time Seen by Provider: 09:38 Travel History International Travel<30 days: No Contact w/Intl Traveler<30days: No Traveled to known affect area: No History of Present Illness HPI Patient is a 32 year old male brought in by police under a Avila Act. He has history of schizophrenia and has been here multiple times in the past. Per Avila Act, patient was arguing with his mother and ran into traffic. Patient says "I just want to watch television, I paid my cable bill, why can't I just watch TV." He has no medical complaints. PFSH Past Medical History Arthritis: No Asthma: No Anxiety: Yes Depression: Yes Heart Rhythm Problems: No Cardiovascular Problems: No (See EMR) High Cholesterol: No Chest Pain: No Congestive Heart Failure: No COPD: No Cerebrovascular Accident: No Developmental Delay: Yes Diminished Hearing: No Endocrine: No Gastrointestinal Disorders: No GERD: No Genitourinary: No Hiatal Hernia: Yes Hypertension: No Immune Disorder: No Inguinal Hernia: Yes Implanted Vascular Access Dvce: No Kidney Stones: No Musculoskeletal: No Neurologic: No Psychiatric: Yes Reproductive: No Respiratory: No Migraines: No Renal Failure: No Schizophrenia: Yes (PARANOID TYPE) Seizures: No Sleep Apnea: No Ulcer: No PNEUMOCCOCAL Vaccine (Year): 2 Past Surgical History Abdominal Surgery: Yes (INGUINAL HERNIA RIGHT) Cardiac Surgery: No Ear Surgery: No Endocrine Surgery: No Eye Surgery: No Genitourinary Surgery: Yes Neurologic Surgery: No Oral Surgery: No Thoracic Surgery: No Other Surgery: Yes Social History Alcohol Use: Yes Tobacco Use: Yes Substance Use: No Allergies-Medications (Allergen,Severity, Reaction): Coded Allergies: No Known Allergies (Verified Adverse Reaction, Unknown, 01/16/18) Reported Meds & Prescriptions Reported Meds & Active Scripts Active Ibuprofen 600 Mg Tab 600 Mg PO Q8HR PRN 10 Days Bactrim DS (Sulfamethoxazole-Trimethoprim) 800-160 Mg Tab 1 Tab PO BID Abilify Maintena Dual Chamber Inj (Aripiprazole) 400 Mg Inj 400 Mg IM Q28D This dose of Abilify Maintena is due on 01/08/18. Discuss with your outpatient provider about possibly switching to Haldol Decanoate instead. Haloperidol 5 Mg Tab 15 Mg PO TID 15 Days Depakote ER (Divalproex Sodium) 500 Mg Daniele 1,000 Mg PO DAILY 15 Days Review of Systems General / Constitutional: No: Fever, Chills HENT: No: Headaches, Lightheadedness Cardiovascular: No: Chest Pain or Discomfort Respiratory: No: Shortness of Breath Gastrointestinal: No: Nausea, Vomiting Musculoskeletal: No: Myalgias Skin: No Rash, No Change in Pigmentation Neurologic: No: Weakness Physical Exam Narrative GENERAL: Awake and alert, agitated. SKIN: Focused skin assessment warm/dry. No wounds or signs of infection. HEAD: Atraumatic. Normocephalic. EYES: Pupils equal and round. No scleral icterus. EOMI. ENT: Very dry lips. NECK: Trachea midline. No JVD. CARDIOVASCULAR: Regular rate and rhythm. No murmur appreciated. RESPIRATORY: No accessory muscle use. Clear to auscultation. Breath sounds equal bilaterally. GASTROINTESTINAL: Abdomen soft, non-tender, nondistended. MUSCULOSKELETAL: No obvious deformities. No clubbing. No cyanosis. No edema. NEUROLOGICAL: Awake and alert. No obvious cranial nerve deficits. Motor grossly within normal limits. Normal speech. PSYCHIATRIC: Agitated. Clear thought blocking. Data Data Last Documented VS Vital Signs Date Time Temp Pulse Resp B/P (MAP) Pulse Ox O2 Delivery O2 Flow Rate FiO2 01/19/18 09:41 98.4 94 20 122/76 (91) 97 Room Air Orders Orders Complete Blood Count With Diff (01/19/18 09:38) Comprehensive Metabolic Panel (01/19/18 09:38) Psych Screen (01/19/18 09:38) Drug Screen, Random Urine (01/19/18 09:38) Alcohol (Ethanol) (01/19/18 09:38) Haloperidol Inj (Haldol Inj) (01/19/18 10:00) Lorazepam Inj (Ativan Inj) (01/19/18 10:00) Diet Regular Basic (01/19/18 Lunch) Potassium Chloride (Kcl) (01/19/18 12:45) Diet Regular Basic (01/19/18 Dinner) Valproic Acid (Depakene) (01/19/18 15:33) Valproic Acid (Depakene) (01/19/18 11:02) Labs Laboratory Tests Test 01/19/18 11:02 White Blood Count 3.1 TH/MM3 Red Blood Count 4.04 MIL/MM3 Hemoglobin 12.0 GM/DL Hematocrit 35.5 % Mean Corpuscular Volume 87.8 FL Mean Corpuscular Hemoglobin 29.6 PG Mean Corpuscular Hemoglobin Concent 33.8 % Red Cell Distribution Width 13.8 % Platelet Count 370 TH/MM3 Mean Platelet Volume 6.4 FL Neutrophils (%) (Auto) 62.8 % Lymphocytes (%) (Auto) 24.2 % Monocytes (%) (Auto) 10.8 % Eosinophils (%) (Auto) 1.0 % Basophils (%) (Auto) 1.2 % Neutrophils # (Auto) 2.0 TH/MM3 Lymphocytes # (Auto) 0.8 TH/MM3 Monocytes # (Auto) 0.3 TH/MM3 Eosinophils # (Auto) 0.0 TH/MM3 Basophils # (Auto) 0.0 TH/MM3 CBC Comment DIFF FINAL Differential Comment Blood Urea Nitrogen 4 MG/DL Creatinine 1.38 MG/DL Random Glucose 47 MG/DL Total Protein 6.9 GM/DL Albumin 3.6 GM/DL Calcium Level 8.8 MG/DL Alkaline Phosphatase 55 U/L Aspartate Amino Transf (AST/SGOT) 36 U/L Alanine Aminotransferase (ALT/SGPT) 24 U/L Total Bilirubin 0.5 MG/DL Sodium Level 137 MEQ/L Potassium Level 2.9 MEQ/L Chloride Level 99 MEQ/L Carbon Dioxide Level 29.1 MEQ/L Anion Gap 9 MEQ/L Estimat Glomerular Filtration Rate 72 ML/MIN Ethyl Alcohol Level LESS THAN 3 MG/DL MDM Medical Decision Making Medical Screen Exam Complete: Yes Emergency Medical Condition: Yes Medical Record Reviewed: Yes Differential Diagnosis psychosis vs intoxication vs dehydration Narrative Course Patient is a 32 year old male who comes in under a Avila Act. He has no medical complaints. His glucose and potassium were low on labs. He was given something to eat and drink with improvement of his blood glucose. He was given oral potassium. Cleared for psychiatric evaluation. Diagnosis Primary Impression: Schizophrenia, paranoid Mary Bennett MD Jan 19, 2018 11:12
[2018-01-19 11:22] LABS: BASOPHIL % 1.2 % (0.0-2.0); HEMATOCRIT 35.5 % (39.0-51.0); LYMPH % 24.2 % (9.0-44.0); LYMPHOCYTE # 0.8 TH/MM3 (1.0-4.8); MEAN CELL VOLUME 87.8 FL (80.0-100.0); MEAN CORPUSCULAR HEMOGLOBIN 29.6 PG (27.0-34.0); MEAN CORPUSCULAR HGB CONC 33.8 % (32.0-36.0); MEAN PLATELET VOLUME 6.4 FL (7.0-11.0); MONO % 10.8 % (0.0-8.0); MONOCYTE # 0.3 TH/MM3 (0-0.9); NEUT % 62.8 % (16.0-70.0); PLATELET COUNT 370 TH/MM3 (150-450); RED BLOOD COUNT 4.04 MIL/MM3 (4.50-5.90); RED CELL DISTRIBUTION WIDTH 13.8 % (11.6-17.2); WHITE BLOOD COUNT 3.1 TH/MM3 (4.0-11.0)
[2018-01-19 12:16] LABS: ALBUMIN 3.6 GM/DL (3.4-5.0); ALKALINE PHOSPHATASE 55 U/L (45-117); ALT (GPT) 24 U/L (12-78); AST (GOT) 36 U/L (15-37); BICARBONATE 29.1 MEQ/L (21.0-32.0); BLOOD UREA NITROGEN 4 MG/DL (7-18); CALCIUM 8.8 MG/DL (8.5-10.1); CHLORIDE 99 MEQ/L (98-107); CREATININE 1.38 MG/DL (0.60-1.30); GLOMERULAR FILTRATION RATE 72 ML/MIN (>89); SODIUM (NA) 137 MEQ/L (136-145); TOTAL BILIRUBIN ADULT 0.5 MG/DL (0.2-1.0); TOTAL PROTEIN 6.9 GM/DL (6.4-8.2)
[2018-01-19 12:25] LABS: GLUCOSE,RANDOM 47 MG/DL (74-106)
[2018-01-19] MEDS ORDERED: POTASSIUM CHLORIDE 10 MEQ CONTROLLED RELEASE TAB PO ONE (12:45)
[2018-01-19 18:05] VITALS: BP 105/67; PULSE 76; RESP 18; O2SAT 100
[2018-01-20] MEDS ORDERED: SULFAMETHOXAZOLE-TRIMETHOPRIM DS 800-160 MG TAB PO ONE (05:30)
[2018-01-20] MEDS ORDERED: ACETAMINOPHEN 325 MG TAB PO PRN (11:00)
[2018-01-20] MEDS ORDERED: LORazepam 2 MG/ML VIAL IM PRN ×2 (11:00)
[2018-01-20] MEDS ORDERED: ALUMINUM/MAGNESIUM/SIMETH 30 ML CUP PO PRN (11:00)
[2018-01-20] MEDS ORDERED: DIVALPROEX SODIUM E.R. 500 MG TAB PO SCH (11:00)
[2018-01-20] MEDS ORDERED: MAGNESIUM HYDROXIDE SUSP 30 ML CUP PO PRN (11:00)
[2018-01-20] MEDS ORDERED: LORazepam 0.5 MG TAB PO PRN (11:00)
[2018-01-20] MEDS ORDERED: HALOPERIDOL 5 MG TAB PO SCH ×2 (13:00→18:00)
--- NOTE | 2018-01-20 13:32 | HHI.HP ---
Provisional Diagnosis Admission Date Jan 20, 2018 at 10:58 Patrick I. Schizophrenia, intellectual disability Patrick II. Deferred Patrick III. No significant medical history Certification of Person's Competence To Provide Express and Informed Consent I have personally examined Danny Mcmanus , a person being served at [facility] on, Jan 20, 2018 13:19. Express and informed consent means consent voluntarily given in writing, by a competent person, after sufficient explanation and disclosure of the subject matter involved to enable the person to make a knowing and willful decision without any element of force, fraud, deceit, duress, or other form of constraint or coercion. This person is 18 years of age or older, is not now known to be incompetent to consent to treatment with a guardian advocate, and does not have a health care surrogate or proxy currently making medical treatment decisions. I have found this person to be one of the following: [] Competent to provide express and informed consent, as defined above, for voluntary admission to this facility and is competent to provide express and informed consent for treatment. He/she has the consistent capacity to make well reasoned, willful, and knowing decisions concerning his or her medical or mental health treatment. The person fully and consistently understands the purpose of the admission for examination/placement and is fully capable of personally exercising all rights assured [place] [x] Incompetent to provide express and informed consent to voluntary admission, and this is incompetent to provide express and informed consent to treatment. The person must be transferred to involuntary status and a petition for a guardian advocate filed with the Circuit Court. [] Refusing to provide express and informed consent to voluntary admission but is competent to provide express and informed consent for treatment. The person must be discharged or transferred to involuntary status. Form shall be completed within 24 hours of a person's arrival at the receiving facility and filed in the clinical record of each person: 1. Admitted on a voluntary basis 2. Permitted to provide express and informed consent to his/her own treatment 3. Allowed to transfer from involuntary to voluntary status 4. Prior to permitting a person to consent to his or her own treatment after having been previously found incompetent to consent to treatment. History of Present Illness Capacity: Lacks Capacity HPI The patient is a 32-year-old man, domiciled with his mother, single, unemployed, supported by [facility], with extensive psychiatric history of schizophrenia, alcohol use disorder, numerous psychiatric hospitalizations, known by the service, last hospitalization was here in [place] was about 2 weeks ago, documentation was reviewed, outpatient service in [facility], his on Haldol 15 mg mg twice a day, Depakote 500 mg twice a day, medical history of asthma, brought in by police under a [place]ila Act. He has history of schizophrenia and has been here multiple times in the past. Per [place] Act, patient was arguing with his mother and ran into traffic. Patient says "I just want to watch television, I paid my cable bill, why can't I just watch TV." He has no medical complaints. On psychiatric evaluation in the ER the patient is disorganized, no making any sense, he seems to be internally preoccupied, very paranoid, he has tried multiple times to provoke other patients in JPod has been very difficult to redirect. Given his intrusive behavior patient was medicated with Thorazine 25 mg IM to help him to calm down the patient is going to be admitted in psychiatry for stabilization and safety. Review of Systems Constitutional: DENIES: Diaphoretic episodes, Fatigue, Fever, Weight gain, Weight loss, Chills, Dizziness, Change in appetite, Night Sweats Endocrine: DENIES: Heat/cold intolerance, Polydipsia, Polyuria, Polyphagia Eyes: DENIES: Blurred vision, Diplopia, Eye inflammation, Eye pain, Vision loss , Photosensitivity, Double Vision Ears, nose, mouth, throat: DENIES: Tinnitus, Hearing loss, Vertigo, Nasal discharge, Oral lesions, Throat pain, Hoarseness, Ear Pain, Running Nose, Epistaxis, Sinus Pain, Toothache, Odynophagia Respiratory: DENIES: Apneas, Cough, Snoring, Wheezing, Hemoptysis, Sputum production, Shortness of breath Cardiovascular: DENIES: Chest pain, Palpitations, Syncope, Dyspnea on Exertion , PND, Lower Extremity Edema, Orthopnea, Claudication Gastrointestinal: DENIES: Abdominal pain, Black stools, Bloody stools, Constipation, Diarrhea, Nausea, Vomiting, Difficulty Swallowing, Anorexia Genitourinary: DENIES: Sexual dysfunction, Urinary frequency, Urinary incontinence, Urgency, Hematuria, Dysuria, Nocturia, Penile Discharge, Testicular Pain, Testicular Swelling Musculoskeletal: DENIES: Joint pain, Muscle aches, Stiffness, Joint Swelling, Back pain, Neck pain Integumentary: DENIES: Abnormal pigmentation, Nail changes, Pruritus, Rash Hematologic/lymphatic: DENIES: Bruising, Lymphadenopathy Immunologic/allergic: DENIES: Eczema, Urticaria Neurologic: DENIES: Abnormal gait, Headache, Localized weakness, Paresthesias, Seizures, Speech Problems, Tremor, Poor Balance Psychiatric: COMPLAINS OF: Anxiety, Delusions Past Psych History Violence risk - others (6 mos) Increased Violence risk - self (6 mos) Increased Past Family Social History Coded Allergies: No Known Allergies (Verified Allergy, Unknown, 01/20/18) Active Scripts Ibuprofen (Ibuprofen) 600 Mg Tab, 600 MG PO Q8HR Y for PAIN for 10 Days, TAB 0 Refills Prov:Naren Elam MD 01/16/18 Sulfamethoxazole-Trimethoprim (Bactrim DS) 800-160 Mg Tab, 1 TAB PO BID for Infection, #14 TAB 0 Refills Prov:Naren Elam MD 01/16/18 Aripiprazole Maintena Dual Chamber Inj (Abilify Maintena Dual Chamber Inj) 400 Mg Inj, 400 MG IM Q28D for Mental Health, #1 SYRINGE 0 Refills This dose of Abilify Maintena is due on 01/08/18. Discuss with your outpatient provider about possibly switching to Haldol Decanoate instead. Prov:Wally Casarez MD 12/30/17 Haloperidol (Haloperidol) 5 Mg Tab, 15 MG PO TID for Mental Health for 15 Days, TAB 1 Refill Prov:Wally Casarez MD 12/30/17 Divalproex ER (Depakote ER) 500 Mg Daniele, 1000 MG PO DAILY for Mental Health for 15 Days, #30 TAB 1 Refill Prov:Wally Casarez MD 12/30/17 Current Medications Medications (Trade) Dose Ordered Sig/Nelson Route Start Time Stop Time Status Last Admin (Depakote Er) 1,000 mg DAILY PO 01/20/18 11:00 (Haldol) 15 mg TID PO 01/20/18 13:00 (Ativan) 1 mg Q6H PRN PO 01/20/18 11:00 (Ativan Inj) 1 mg Q6H PRN IM 01/20/18 11:00 (Ativan) 0.5 mg Q12H PRN PO 01/20/18 11:00 (Ativan Inj) 0.5 mg Q12H PRN IM 01/20/18 11:00 (Tylenol) 650 mg Q4H PRN PO 01/20/18 11:00 (Milk Of Magnesia Liq) 30 ml DAILY PRN PO 01/20/18 11:00 (Mag-Al Plus Susp Liq) 30 ml Q6H PRN PO 01/20/18 11:00 (Habitrol 21 Mg Patch.24 Hr) 1 patch DAILY T-DERMAL 01/21/18 09:00 Social History Patient was born and raised in [place], he lives with mother, single, unemployed, supported by [facility], Patient's Strengths (min. 2) Family support, outpatient care Physical Exam Vital Signs Vital Signs Date Time Temp Pulse Resp B/P (MAP) Pulse Ox O2 Delivery O2 Flow Rate FiO2 01/19/18 18:05 76 18 105/67 (80) 100 Room Air 01/19/18 09:41 98.4 Lab Results Test 01/19/18 17:40 Urine Opiates Screen NEG Urine Barbiturates Screen NEG Urine Amphetamines Screen NEG Urine Benzodiazepines Screen NEG Urine Cocaine Screen NEG Urine Cannabinoids Screen NEG Mental Status Examination Appearance: Dirty, Disheveled Consciousness: Alert Orientation: Person Motor Activity: Normal gait Speech: Unremarkable Language: Adequate Fund of Knowledge: Adequate Attention and Concentration: Adequate Memory: Unremarkable Mood: Appropriate Affect: Irritable Thought Process & Associations: Loose associations Thought Content: Bizarre thinking, Delusional, Obsessions Delusion Type: None, Paranoid Suicidal Ideation: No Suicidal Plan: No Suicidal Intention: No Homicidal Ideation: No Homicidal Plan: No Homicidal Intention: No Insight: Poor Judgment: Poor Assessment & Plan Problem List: (1) Schizoaffective disorder ICD Codes: F25.9 - Schizoaffective disorder, unspecified Status: Acute Assessment & Plan: On psychiatric evaluation today patient is quite disorganized, agitated, internally stimulated, very intrusive in the unit to the point that had to be medicated with Thorazine 25 mg IM to help him to calm down. Valproate acid level are therapeutic which suggested the patient has been compliant with his psychotropics, but given his current presentation the patient seems to be decompensated of his schizoaffective disorder and he needs psychiatric hospitalization for stabilization and safety. I try to get collateral information from his mother this morning, but she did not answer the phone. I will restart Haldol 10 mg twice daily, Depakote 500 mg twice daily. Will order an EKG for baseline QTC. Psychiatric consult for second opinion. Patient will be transferred to [address] unit. sort line worker intervention for counseling, psychosocial assessment, collateral information and to coordinate safe discharge Assessment & Plan Estimated LOS: days Raj Adler MD Jan 20, 2018 13:32
[2018-01-20 15:59] VITALS: BP 104/66; PULSE 94; TEMP 96.1
[2018-01-21 06:14] VITALS: BP 109/65; PULSE 66; RESP 18; TEMP 97.6; O2SAT 99
[2018-01-21] MEDS: NICOTINE 21 MG/24 HR PATCH T-DERMAL SCH (09:00)
--- NOTE | 2018-01-21 10:35 | PD.PSY.CON ---
Provisional Diagnosis Admission Date Jan 20, 2018 at 10:58 [place] I. 1. Schizophrenia, disorganized type [place] II. Deferred History of Present Illness Service Psychiatry Consult Requested By Dr. Adler Reason for Consult Second opinion for involuntary psychiatric hospitalization Primary Care Physician No Primary Care Physician HPI From Dr. Adler's H&P: The patient is a 32-year-old man, domiciled with his mother, single, unemployed, supported by [facility], with extensive psychiatric history of schizophrenia, alcohol use disorder, numerous psychiatric hospitalizations, known by the service, last hospitalization was here in [place] was about 2 weeks ago, documentation was reviewed, outpatient service in [facility], his on Haldol 15 mg mg twice a day, Depakote 500 mg twice a day, medical history of asthma, brought in by police under a [place]ila Act. He has history of schizophrenia and has been here multiple times in the past. Per [employer] Act, patient was arguing with his mother and ran into traffic. Patient says "I just want to watch television, I paid my cable bill, why can't I just watch TV." He has no medical complaints. On psychiatric evaluation in the ER the patient is disorganized, no making any sense, he seems to be internally preoccupied, very paranoid, he has tried multiple times to provoke other patients in JPod has been very difficult to redirect. Given his intrusive behavior patient was medicated with Thorazine 25 mg IM to help him to calm down the patient is going to be admitted in psychiatry for stabilization and safety. On my examination today, 01/21: Patient seen and examined with nurse. Chart reviewed. Case discussed with nursing staff. On my examination today, patient presents as irritable. Thought process tangential. He is noncommittal regarding the allegations in the Avila Act. He denies AVH. He denies SI or HI but seems unreliable to contract for safety. He insists that he has been medication compliant. No side effects from medications. No physical complaints. PPH, FH, CD hx, and SH have been amply documented in previous visits. Spoke with patient's mother. She notes that the patient has been non-adherent with medications and has been trying to dart into traffic. We discuss possible state hospitalization as patient has struggled in a less restrictive setting. Review of Systems ROS Limitations: Psychotic, Poor Historian Except as stated in HPI: all other systems reviewed are Neg Past Family Social History Coded Allergies: No Known Allergies (Verified Allergy, Unknown, 01/20/18) Past Medical History See EMR Active Scripts Ibuprofen (Ibuprofen) 600 Mg Tab, 600 MG PO Q8HR Y for PAIN for 10 Days, TAB 0 Refills Prov:Naren Elam MD 01/16/18 Sulfamethoxazole-Trimethoprim (Bactrim DS) 800-160 Mg Tab, 1 TAB PO BID for Infection, #14 TAB 0 Refills Prov:Naren Elam MD 01/16/18 Aripiprazole Maintena Dual Chamber Inj (Abilify Maintena Dual Chamber Inj) 400 Mg Inj, 400 MG IM Q28D for Mental Health, #1 SYRINGE 0 Refills This dose of Abilify Maintena is due on 01/08/18. Discuss with your outpatient provider about possibly switching to Haldol Decanoate instead. Prov:Wally Casarez MD 12/30/17 Haloperidol (Haloperidol) 5 Mg Tab, 15 MG PO TID for Mental Health for 15 Days, TAB 1 Refill Prov:Wally Casarez MD 12/30/17 Divalproex ER (Depakote ER) 500 Mg Daniele, 1000 MG PO DAILY for Mental Health for 15 Days, #30 TAB 1 Refill Prov:Wally Casarez MD 12/30/17 Current Medications Medications (Trade) Dose Ordered Sig/Nelson Route Start Time Stop Time Status Last Admin (Depakote Er) 1,000 mg DAILY PO 01/20/18 11:00 (Ativan) 1 mg Q6H PRN PO 01/20/18 11:00 (Ativan Inj) 1 mg Q6H PRN IM 01/20/18 11:00 (Ativan) 0.5 mg Q12H PRN PO 01/20/18 11:00 (Ativan Inj) 0.5 mg Q12H PRN IM 01/20/18 11:00 (Tylenol) 650 mg Q4H PRN PO 01/20/18 11:00 (Milk Of Magnesia Liq) 30 ml DAILY PRN PO 01/20/18 11:00 (Mag-Al Plus Susp Liq) 30 ml Q6H PRN PO 01/20/18 11:00 (Habitrol 21 Mg Patch.24 Hr) 1 patch DAILY T-DERMAL 01/21/18 09:00 (Haldol) 5 mg TID PO 01/20/18 18:00 01/20/18 17:49 Patient's Strengths (min. 2) In a monitored setting. Verbally fluent. Physical Exam Physical exam completed by ED provider. On my exam, patient in no distress. No motor abnormalities noted. Labs and vitals reviewed: Vital Signs Vital Signs Date Time Temp Pulse Resp B/P (MAP) Pulse Ox O2 Delivery O2 Flow Rate FiO2 01/21/18 06:14 97.6 66 18 109/65 (80) 99 01/19/18 18:05 Room Air Lab Results Laboratory Tests Test 01/19/18 11:02 01/19/18 17:40 White Blood Count 3.1 TH/MM3 Red Blood Count 4.04 MIL/MM3 Hemoglobin 12.0 GM/DL Hematocrit 35.5 % Mean Corpuscular Volume 87.8 FL Mean Corpuscular Hemoglobin 29.6 PG Mean Corpuscular Hemoglobin Concent 33.8 % Red Cell Distribution Width 13.8 % Platelet Count 370 TH/MM3 Mean Platelet Volume 6.4 FL Neutrophils (%) (Auto) 62.8 % Lymphocytes (%) (Auto) 24.2 % Monocytes (%) (Auto) 10.8 % Eosinophils (%) (Auto) 1.0 % Basophils (%) (Auto) 1.2 % Neutrophils # (Auto) 2.0 TH/MM3 Lymphocytes # (Auto) 0.8 TH/MM3 Monocytes # (Auto) 0.3 TH/MM3 Eosinophils # (Auto) 0.0 TH/MM3 Basophils # (Auto) 0.0 TH/MM3 CBC Comment DIFF FINAL Differential Comment Blood Urea Nitrogen 4 MG/DL Creatinine 1.38 MG/DL Random Glucose 47 MG/DL Total Protein 6.9 GM/DL Albumin 3.6 GM/DL Calcium Level 8.8 MG/DL Alkaline Phosphatase 55 U/L Aspartate Amino Transf (AST/SGOT) 36 U/L Alanine Aminotransferase (ALT/SGPT) 24 U/L Total Bilirubin 0.5 MG/DL Sodium Level 137 MEQ/L Potassium Level 2.9 MEQ/L Chloride Level 99 MEQ/L Carbon Dioxide Level 29.1 MEQ/L Anion Gap 9 MEQ/L Estimat Glomerular Filtration Rate 72 ML/MIN Valproic Acid (Depakene) Level 61 MCG/ML Ethyl Alcohol Level LESS THAN 3 MG/DL Urine Opiates Screen NEG Urine Barbiturates Screen NEG Urine Amphetamines Screen NEG Urine Benzodiazepines Screen NEG Urine Cocaine Screen NEG Urine Cannabinoids Screen NEG Mental Status Examination Appearance: Disheveled Consciousness: Alert Orientation: Person, Place Motor Activity: Normal gait Speech: Unremarkable Language: Adequate Fund of Knowledge: Inadequate Attention and Concentration: Easily Distracted Memory: Unremarkable Mood: Irritable Affect: Irritable Thought Process & Associations: Tangential Thought Content: Bizarre thinking, Delusional Hallucination Type: None Delusion Type: Paranoid Suicidal Ideation: No Suicidal Plan: No Suicidal Intention: No Homicidal Ideation: No Homicidal Plan: No Homicidal Intention: No Insight: Poor Judgment: Poor Assessment & Plan Problem List: (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 Adler that the patient meets criteria for involuntary psychiatric hospitalization under the Avila act. I have completed the second opinion paperwork. I will be assuming care of the case. Nurse has provided updated medication list, and the patient has most recently been taking oral Risperdal 4 mg twice daily, Depakote 1500 mg daily and Cogentin 1 mg twice daily as well as Prolixin decanoate, last administered 01/17. I will adjust patient's medications so that they are consistent with outpatient medication regimen. Check a CBC and BMP to follow up on laboratory abnormalities on presentation. Continue to monitor on the high acuity unit. Continue other medications and care as ordered. Discharge Planning Possible [facility] referral Request HC Surrog/Guard Advoc?: Yes Wally Casarez MD Jan 21, 2018 10:35
[2018-01-21] MEDS: DIVALPROEX SODIUM E.R. 500 MG TAB PO SCH (11:27)
[2018-01-21] MEDS: risperiDONE 1 MG TAB PO SCH ×2 (11:27→20:22)
[2018-01-21] MEDS: LORazepam 1 MG TAB PO PRN ×2 (13:41→21:01)
[2018-01-21 18:14] VITALS: BP 125/64; PULSE 86; RESP 18; TEMP 98.6; O2SAT 100
[2018-01-21 18:47] LABS: AUTOMATED NEUTROPHIL # 1.6 TH/MM3 (1.8-7.7); BASOPHIL # 0.1 TH/MM3 (0-0.2); BASOPHIL % 1.4 % (0.0-2.0); EOSINOPHIL # 0.1 TH/MM3 (0-0.4); EOSINOPHIL % 3.5 % (0.0-4.0); HEMATOCRIT 33.6 % (39.0-51.0); HEMOGLOBIN 11.1 GM/DL (13.0-17.0); LYMPH % 40.8 % (9.0-44.0); LYMPHOCYTE # 1.5 TH/MM3 (1.0-4.8); MEAN CELL VOLUME 88.9 FL (80.0-100.0); MEAN CORPUSCULAR HEMOGLOBIN 29.4 PG (27.0-34.0); MEAN CORPUSCULAR HGB CONC 33.1 % (32.0-36.0); MEAN PLATELET VOLUME 6.6 FL (7.0-11.0); MONO % 10.8 % (0.0-8.0); MONOCYTE # 0.4 TH/MM3 (0-0.9); NEUT % 43.5 % (16.0-70.0); PLATELET COUNT 313 TH/MM3 (150-450); RED BLOOD COUNT 3.78 MIL/MM3 (4.50-5.90); RED CELL DISTRIBUTION WIDTH 14.4 % (11.6-17.2); WHITE BLOOD COUNT 3.7 TH/MM3 (4.0-11.0)
[2018-01-21 19:13] LABS: BICARBONATE 31.8 MEQ/L (21.0-32.0); CALCIUM 9.3 MG/DL (8.5-10.1); CREATININE 1.03 MG/DL (0.60-1.30)
[2018-01-22 05:40] VITALS: BP 90/55; PULSE 80; RESP 18; TEMP 96.8; O2SAT 96
[2018-01-22] MEDS: risperiDONE 1 MG TAB PO SCH ×2 (08:22→20:21)
[2018-01-22] MEDS: DIVALPROEX SODIUM E.R. 500 MG TAB PO SCH (08:22)
[2018-01-22] MEDS: NICOTINE 21 MG/24 HR PATCH T-DERMAL SCH (08:23)
--- NOTE | 2018-01-22 08:34 | HHI.PYPN ---
Subjective Remarks Patient seen and examined with nurse. Chart reviewed. Case discussed with nursing staff who reports patient remain somewhat paranoid. He took his meal to get off of the tray when he was finished with it and placed this in his pocket. He is noted to be watchful and guarded on the unit. On my exam, patient presents as somewhat malodorous. He is somewhat perseverative at times and tangential at others. He denies SI/HI. Denies side effects from medications. No physical complaints. Review of Systems ROS Limitations: Poor Historian Except as stated in HPI: all other systems reviewed are Neg Mental Status Examination Appearance: Malodorous Consciousness: Alert Orientation: Person, Place Motor Activity: Normal gait Speech: Unremarkable Language: Adequate Fund of Knowledge: Inadequate Attention and Concentration: Easily Distracted Memory: Unremarkable Mood: Anxious Affect: Anxious Thought Process & Associations: Tangential Thought Content: Bizarre thinking, Delusional Hallucination Type: None Delusion Type: Paranoid Suicidal Ideation: No Suicidal Plan: No Suicidal Intention: No Homicidal Ideation: No Homicidal Plan: No Homicidal Intention: No Insight: Poor Judgment: Poor Results Labs Test 01/21/18 18:34 White Blood Count 3.7 TH/MM3 Red Blood Count 3.78 MIL/MM3 Hemoglobin 11.1 GM/DL Hematocrit 33.6 % Mean Corpuscular Volume 88.9 FL Mean Corpuscular Hemoglobin 29.4 PG Mean Corpuscular Hemoglobin Concent 33.1 % Red Cell Distribution Width 14.4 % Platelet Count 313 TH/MM3 Mean Platelet Volume 6.6 FL Neutrophils (%) (Auto) 43.5 % Lymphocytes (%) (Auto) 40.8 % Monocytes (%) (Auto) 10.8 % Eosinophils (%) (Auto) 3.5 % Basophils (%) (Auto) 1.4 % Neutrophils # (Auto) 1.6 TH/MM3 Lymphocytes # (Auto) 1.5 TH/MM3 Monocytes # (Auto) 0.4 TH/MM3 Eosinophils # (Auto) 0.1 TH/MM3 Basophils # (Auto) 0.1 TH/MM3 CBC Comment DIFF FINAL Differential Comment Blood Urea Nitrogen 18 MG/DL Creatinine 1.03 MG/DL Random Glucose 99 MG/DL Calcium Level 9.3 MG/DL Sodium Level 137 MEQ/L Potassium Level 3.9 MEQ/L Chloride Level 98 MEQ/L Carbon Dioxide Level 31.8 MEQ/L Anion Gap 7 MEQ/L Estimat Glomerular Filtration Rate 101 ML/MIN Labs reviewed. Leukopenia stable. BMP unremarkable. Patient does have a normocytic anemia, somewhat worse today. 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 Check iron studies and fecal occult blood. Trend H&H. Continue to monitor on inpatient unit. Continue other care as ordered. Justification for Cont. Inpt. Risk for decompensation in less restrictive environment. Discharge Planning Pending psychiatric stabilization Request HC Surrog/Guard Advoc?: Yes Wally Casarez MD Jan 22, 2018 08:34
[2018-01-22] MEDS: LORazepam 1 MG TAB PO PRN (15:04)
[2018-01-22 17:26] LABS: % SATURATION IRON PROFILE 8.5 % (20-50); IRON (FE) 25 MCG/DL (65-175); TOTAL IRON BINDING CAPACITY 294 MCG/DL (250-450)
[2018-01-22 17:30] LABS: FERRITIN 98 NG/ML (26-388)
[2018-01-22 17:47] VITALS: BP 104/66; PULSE 84; RESP 18; TEMP 98.6; O2SAT 99
[2018-01-22 21:09] VITALS: BP 104/65; PULSE 72; RESP 18; TEMP 96.6; O2SAT 96
[2018-01-23 05:58] VITALS: BP 104/61; PULSE 74; RESP 18; TEMP 98.1; O2SAT 96
[2018-01-23] MEDS: risperiDONE 1 MG TAB PO SCH ×2 (08:09→20:49)
[2018-01-23] MEDS: NICOTINE 21 MG/24 HR PATCH T-DERMAL SCH (08:10)
[2018-01-23] MEDS: DIVALPROEX SODIUM E.R. 500 MG TAB PO SCH (08:10)
--- NOTE | 2018-01-23 10:38 | HHI.PYPN ---
Subjective Remarks Patient seen and case discussed with nursing staff. Chart reviewed. For me today, patient is calm and cooperative. Thought process remains a little bit tangential at times. No side effects from medications. No physical complaints. Review of Systems ROS Limitations: Psychotic, Poor Historian Other Limited ROS Mental Status Examination Appearance: Other (Fair grooming and hygiene) Consciousness: Alert Orientation: Person, Place Motor Activity: Other (No motor abnormalities noted) Speech: Unremarkable Language: Adequate Fund of Knowledge: Inadequate Attention and Concentration: Easily Distracted Memory: Unremarkable Mood: Other (Calm) Affect: Blunt Thought Process & Associations: Tangential Thought Content: Appropriate Hallucination Type: None Delusion Type: None Suicidal Ideation: No Suicidal Plan: No Suicidal Intention: No Homicidal Ideation: No Homicidal Plan: No Homicidal Intention: No Insight: Poor Judgment: Poor Results Labs Test 01/22/18 16:32 Iron Level 25 MCG/DL Total Iron Binding Capacity 294 MCG/DL Percent Iron Saturation 8.5 % Ferritin 98 NG/ML Labs reviewed. Iron studies not really consistent with iron deficiency, perhaps anemia of chronic disease? Fecal occult blood in process. 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 Check an H&H in the morning. If anemia worsening we will plan to consult hospitalist. Continue to monitor on the inpatient unit. Continue other care as ordered. Patient's case was presented to the [place] act court and placed in continuance for 3 weeks. Justification for Cont. Inpt. Risk for decompensation in less restrictive environment. Discharge Planning Pending psychiatric stabilization. Request HC Surrog/Guard Advoc?: Yes Wally Casarez MD Jan 23, 2018 10:38
[2018-01-23] MEDS: LORazepam 1 MG TAB PO PRN (17:19)
[2018-01-23 17:21] VITALS: BP 101/53; PULSE 80; RESP 17; TEMP 98.8; O2SAT 99
[2018-01-24 06:04] VITALS: BP 106/62; PULSE 60; RESP 17; TEMP 96.6; O2SAT 96
[2018-01-24 08:25] LABS: HEMATOCRIT 34.5 % (39.0-51.0); HEMOGLOBIN 11.5 GM/DL (13.0-17.0)
[2018-01-24] MEDS: DIVALPROEX SODIUM E.R. 500 MG TAB PO SCH (08:48)
[2018-01-24] MEDS: risperiDONE 1 MG TAB PO SCH ×2 (08:49→20:47)
[2018-01-24] MEDS: NICOTINE 21 MG/24 HR PATCH T-DERMAL SCH (09:00)
--- NOTE | 2018-01-24 10:19 | HHI.PYPN ---
Subjective Remarks Patient seen and examined with nurse. Chart reviewed. Case discussed with nursing staff. Case discussed in treatment team. On my examination today, patient is somewhat malodorous. Nurse reports that patient requires prompting for hygiene tasks. He is calm and cooperative with exam. Denies AVH. Thought process a little more organized. Denies side effects from medications. No physical complaints. Review of Systems ROS Limitations: Poor Historian Except as stated in HPI: all other systems reviewed are Neg Mental Status Examination Appearance: Malodorous Consciousness: Alert Orientation: Person, Place Motor Activity: Other (No abnormal motor movements noted) Speech: Unremarkable Language: Adequate Fund of Knowledge: Inadequate Attention and Concentration: Easily Distracted Memory: Unremarkable Mood: Other (Calm) Affect: Blunt Thought Process & Associations: Circumstantial Thought Content: Appropriate Hallucination Type: None Delusion Type: None Suicidal Ideation: No Suicidal Plan: No Suicidal Intention: No Homicidal Ideation: No Homicidal Plan: No Homicidal Intention: No Insight: Poor Judgment: Poor Results Labs Test 01/24/18 08:08 Hemoglobin 11.5 GM/DL Hematocrit 34.5 % Labs reviewed. H&H stable. Fecal occult blood not available for review. 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 I will continue current regimen as ordered. Patient had received Prolixin dec prior to admission, but we might consider switching to long-acting Risperdal/paliperidone when next due. Continue to monitor on the inpatient unit. Continue other medications and care as ordered. Justification for Cont. Inpt. Risk for decompensation in less restrictive environment. Discharge Planning Pending psychiatric stabilization. Home with mother with outpatient psychiatric follow-up. Request HC Surrog/Guard Advoc?: Yes Wally Casarez MD Jan 24, 2018 10:19
--- NOTE | 2018-01-24 14:34 | PD.TTN ---
Patient Problems 1. Discharge planning 2. Medication compliance 3. Knowledge deficit 4. Lack of coping skills Progress Toward Goals Provider Present: Dr. Adrianna Casarez Provider Input: Dr. Casarez's met to discuss patient's medication, treatment plan, and discharge. Maintaining treatment for stablization. possible discharge next week. Nurse(s) Input: Patient is seclusive and quiet Psychiatric Counselors Present: Gudelia Lau [facility] Psych Therapist Input: Patient presents paranoid, guarded, cooperative but restricted. Patient is seclusive to self. Patient made poor eye contact. Possible discharge next week to patient's mother house. Group Spec/RT/OT/MENDOZA Present: Maurice Correa OT Group Spec/RT/OT/MENDOZA Input: Patient attends some groups, paranoid but progressing. Gudelia Lau [facility] Jan 24, 2018 14:34
[2018-01-24 17:44] VITALS: BP 98/51; PULSE 70; RESP 17; TEMP 98.7; O2SAT 95
[2018-01-25 06:02] VITALS: BP 106/55; PULSE 60; RESP 17; TEMP 98; O2SAT 97
[2018-01-25] MEDS: NICOTINE 21 MG/24 HR PATCH T-DERMAL SCH (09:00)
[2018-01-25] MEDS: risperiDONE 1 MG TAB PO SCH ×2 (09:11→21:09)
[2018-01-25] MEDS: DIVALPROEX SODIUM E.R. 500 MG TAB PO SCH (09:11)
--- NOTE | 2018-01-25 13:53 | HHI.PYPN ---
Subjective Remarks Reviewed electronic medical record I discussed case with staff. Nurse reports patient is doing much better today. He took a shower with much encouragement per staff. Follow-up was conducted in the day room with nurse present. Patient reports that he is feeling good states that he slept well. He reports that his had a good appetite. His speech is clear, logical, and organized today which is a great improvement from the last time I saw him. He denies any complaints of side effects from the medications at this time. He is fixated on discharge. Mental Status Examination Appearance: Malodorous Consciousness: Alert Orientation: Person, Place Motor Activity: Other (No abnormal motor movements noted) Speech: Unremarkable Language: Adequate Fund of Knowledge: Inadequate Attention and Concentration: Easily Distracted Memory: Unremarkable Mood: Other (Calm) Affect: Blunt Thought Process & Associations: Circumstantial Thought Content: Appropriate Hallucination Type: None Delusion Type: None Suicidal Ideation: No Suicidal Plan: No Suicidal Intention: No Homicidal Ideation: No Homicidal Plan: No Homicidal Intention: No Insight: Poor Judgment: Poor Results Vitals/IOs Vital Signs Date Time Temp Pulse Resp B/P (MAP) Pulse Ox O2 Delivery O2 Flow Rate FiO2 01/25/18 06:02 98.0 60 17 106/55 (72) 97 Assessment & Plan Problem List: (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 While there is some improvement noted in the patient's behavior, he may require additional medication adjustments. Days Justification for Cont. Inpt. Moving this patient to a lower level of care would result in decompensation. Patient to be reevaluated by his psychiatrist on Saturday. Request HC Surrog/Guard Advoc?: Yes Cordelia Yanez Jan 25, 2018 13:53
[2018-01-25 17:53] VITALS: BP 102/55; PULSE 72; RESP 17; TEMP 97.4; O2SAT 99
[2018-01-25] MEDS: LORazepam 1 MG TAB PO PRN (21:09)
[2018-01-26 06:12] VITALS: BP 94/56; PULSE 52; RESP 17; TEMP 98.8; O2SAT 97
[2018-01-26] MEDS: NICOTINE 21 MG/24 HR PATCH T-DERMAL SCH (09:00)
[2018-01-26] MEDS: DIVALPROEX SODIUM E.R. 500 MG TAB PO SCH (09:04)
[2018-01-26] MEDS: risperiDONE 1 MG TAB PO SCH ×2 (09:05→20:26)
--- NOTE | 2018-01-26 10:06 | HHI.PYPN ---
Subjective Remarks Reviewed electronic medical record discussed case with staff. Follow-up was conducted in the day room. Patient reports that he has been sleeping well and has a good appetite. He denies any side effects from his medications. Patient seems to be much improved. Mental Status Examination Appearance: Malodorous Consciousness: Alert Orientation: Person, Place Motor Activity: Other (No abnormal motor movements noted) Speech: Unremarkable Language: Adequate Fund of Knowledge: Inadequate Attention and Concentration: Easily Distracted Memory: Unremarkable Mood: Other (Calm) Affect: Blunt Thought Process & Associations: Circumstantial Thought Content: Appropriate Hallucination Type: None Delusion Type: None Suicidal Ideation: No Suicidal Plan: No Suicidal Intention: No Homicidal Ideation: No Homicidal Plan: No Homicidal Intention: No Insight: Poor Judgment: Poor Results Vitals/IOs Vital Signs Date Time Temp Pulse Resp B/P (MAP) Pulse Ox O2 Delivery O2 Flow Rate FiO2 01/26/18 06:12 98.8 52 17 94/56 (69) 97 Assessment & Plan Problem List: (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 Attending psychiatrist will reevaluate tomorrow. Days Justification for Cont. Inpt. Moving this patient to a lower level care would likely result in a decompensation. Request HC Surrog/Guard Advoc?: Yes Cordelia Yanez Jan 26, 2018 10:06
[2018-01-26 17:37] VITALS: BP 94/48; PULSE 65; RESP 18; TEMP 98.2; O2SAT 96
[2018-01-27 06:21] VITALS: BP 90/54; PULSE 57; RESP 16; TEMP 97.2; O2SAT 100
[2018-01-27] MEDS: NICOTINE 21 MG/24 HR PATCH T-DERMAL SCH ×2 (08:07→08:14)
[2018-01-27] MEDS: DIVALPROEX SODIUM E.R. 500 MG TAB PO SCH (08:07)
[2018-01-27] MEDS: risperiDONE 1 MG TAB PO SCH (08:07)
[2018-01-27] MEDS ORDERED: FLUP1INJ IM (09:25)
[2018-01-27] MEDS ORDERED: RISP1 PO (09:25)
[2018-01-27] MEDS ORDERED: DEPA500T3 PO (09:25)
--- NOTE | 2018-01-27 09:25 | HHI.DS ---
Psychiatry Discharge Summary Inpatient Psychiatric care?: Yes Advance Directive: No Mental Health AdvanceDirective: No Health Care Proxy: No Admission Admission Date Jan 20, 2018 at 10:58 Admission Diagnosis: (1) Disorganized schizophrenia ICD Code: F20.1 - Disorganized schizophrenia Brief History The patient is a 32-year-old man, domiciled with his mother, single, unemployed, supported by [facility], with extensive psychiatric history of schizophrenia, alcohol use disorder, numerous psychiatric hospitalizations, known by the service, last hospitalization was here in [place] was about 2 weeks ago, documentation was reviewed, outpatient service in [facility], his on Haldol 15 mg mg twice a day, Depakote 500 mg twice a day, medical history of asthma, brought in by police under a Avila Act. He has history of schizophrenia and has been here multiple times in the past. Per Avila Act, patient was arguing with his mother and ran into traffic. Patient says "I just want to watch television, I paid my cable bill, why can't I just watch TV." He has no medical complaints. On psychiatric evaluation in the ER the patient is disorganized, no making any sense, he seems to be internally preoccupied, very paranoid, he has tried multiple times to provoke other patients in [facility] has been very difficult to redirect. Given his intrusive behavior patient was medicated with Thorazine 25 mg IM to help him to calm down the patient is going to be admitted in psychiatry for stabilization and safety. Tobacco Use In Past 30 Days: No Tobacco Past 30 Days Alcohol Use: Never Hospital Course Patient was admitted to a locked, inpatient psychiatric unit. Appropriate precautions were in place throughout patient's hospital stay. Patient was seen and examined on the unit by psychiatry and also visited by counselor. Home psychotropic medications were continued, and patient's psychiatric condition stabilized with monitored adherence with these medications. There was no evidence of suicidality or homicidality on the inpatient unit. Patient's self- care was actually fairly good this admission, as he typically presents in a much more disheveled state initially. Patient's behavior remained in fairly good control, and he was adherent with medications. Given his multiple presentations for decompensated psychosis with probable contribution from some degree of medication nonadherence, I think it is prudent at this juncture to initiate a petition for outpatient commitment to try to ensure adherence with medications in the community. I have consulted for a second opinion. Patient seen and examined on day of discharge with nurse. Chart reviewed. Case discussed with nursing staff. No behavioral issues noted overnight. On my examination today, the patient denies suicidal or homicidal ideation, intent or plan. He is requesting discharge from the inpatient psychiatric unit today. No depressive or hypomanic/manic symptoms elicited. He denies audiovisual hallucinations. I can elicit no delusional material. He denies side effects from medications. No physical complaints. Weighing the relevant factors and based on the available evidence, I night auditor that the patient no longer meets criteria for involuntary inpatient psychiatric hospitalization, although he would benefit from outpatient commitment as noted above if granted by the night auditor. Patient will be discharged into mother's care today with psychiatric follow-up as arranged by counselor. Patient is also to follow up with primary care. Patient to return to psychiatric emergency room for any concerning symptoms as part of a general safety plan. I did call to Luis F Lundy prior to discharge to confirm the date and dose of next Prolixin Decanoate injection and have included this in patient's discharge medication reconciliation form. Results Blood Pressure 90 / 54 Vital Signs Date Time Temp Pulse Resp B/P (MAP) Pulse Ox O2 Delivery O2 Flow Rate FiO2 01/27/18 06:21 97.2 57 16 90/54 (66) 100 Laboratory Results Test 01/19/18 11:02 Valproic Acid (Depakene) Level 61 MCG/ML (50-100) Summary of Procedures None done Imaging None done Pending results at discharge: No Medications # of Antipsychotic meds at D/C: 2 Appropriate >1 Antipsych meds?: 4 Approp Antipsych med options 1 - Minimum of three failed multiple trials of monotherapy. 2 - Documented plan to taper to monotherapy due to previous use of multiple meds OR cross-taper in progress at D/C. 3 - Documentation of augmentation of Clozapine. 4 - Justification other than those listed in allowable values 1-3, document here : On multiple antipsychotics at admission Discharge Discharge Date: Jan 27, 2018 Discharge Diagnosis: (1) Disorganized schizophrenia Diagnosis: Principal (Stabilized) ICD Code: F20.1 - Disorganized schizophrenia Pt Condition on Discharge: Stable Discharge Disposition: Discharge Home Discharge Instructions Diet Instructions: As Tolerated, No Restrictions Activities you can perform: Weight Bearing as [place] New Orders: CBC WITH DIFF - 1 Week New Medications: Fluphenazine Decanoate Inj (Fluphenazine Decanoate Inj) 125 Mg/5 Ml Inj 25 MG IM Q21D for Mental Health, #1 VIAL 0 Refills This dose of Prolixin Dec is due on 02/07/2018. Divalproex ER (Depakote ER) 500 Mg Daniele 1500 MG PO DAILY for Mental Health for 15 Days, #45 TAB 1 Refill Risperidone (Risperdal) 1 Mg Tab 4 MG PO Q12HR for Mental Health for 15 Days, TAB 1 Refill Continued Medications: Ibuprofen (Ibuprofen) 600 Mg Tab 600 MG PO Q8HR PRN for PAIN for 10 Days, TAB 0 Refills Discontinued Medications: Aripiprazole Maintena Dual Chamber Inj (Abilify Maintena Dual Chamber Inj) 400 Mg Inj 400 MG IM Q28D for Mental Health, #1 SYRINGE 0 Refills This dose of Abilify Maintena is due on 01/08/18. Discuss with your outpatient provider about possibly switching to Haldol Decanoate instead. Divalproex ER (Depakote ER) 500 Mg Daniele 1000 MG PO DAILY for Mental Health for 15 Days, #30 TAB 1 Refill Haloperidol (Haloperidol) 5 Mg Tab 15 MG PO TID for Mental Health for 15 Days, TAB 1 Refill Sulfamethoxazole-Trimethoprim (Bactrim DS) 800-160 Mg Tab 1 TAB PO BID for Infection, #14 TAB 0 Refills Discharge Time <= 30 minutes Mental Status Examination Appearance: Other (Fair grooming and hygiene) Consciousness: Alert Orientation: Person, Place, Date/Time (Approximate) Motor Activity: Normal gait, Other (No motoric abnormalities noted) Speech: Unremarkable Language: Adequate Fund of Knowledge: Inadequate Attention and Concentration: Other (Fair) Memory: Unremarkable Mood: Appropriate Affect: Blunt Thought Process & Associations: Circumstantial Thought Content: Appropriate Hallucination Type: None Delusion Type: None Suicidal Ideation: No Suicidal Plan: No Suicidal Intention: No Homicidal Ideation: No Homicidal Plan: No Homicidal Intention: No Insight: Poor (Chronic condition) Judgment: Poor (Chronic condition) Discharge/Advance Care Plan Health Problems: (1) Disorganized schizophrenia Goals to promote your health * To prevent worsening of your condition and complications * To maintain your health at the optimal level Directions to meet your goals Take your medications as prescribed Follow your dietary instruction Follow activity as directed Keep your appointments as scheduled Take your immunizations and boosters as scheduled If your symptoms worsen call your PCP, if no PCP go to Urgent Care Center or Emergency Room For 22/04 questions related to your inpatient stay or results of tests pending at discharge, please contact Dr. Wally Casarez at Smoking is Dangerous to Your Health. Avoid second hand smoking Wally Casarez MD Jan 27, 2018 09:25
--- NOTE | 2018-01-27 11:53 | PD.PSY.CON ---
Provisional Diagnosis Admission Date Jan 20, 2018 at 10:58 [place] I. 1. Schizophrenia, disorganized type [place] II. Deferred History of Present Illness Service Psychiatry Consult Requested By Psychiatry Reason for Consult Second opinion for outpatient treatment Primary Care Physician No Primary Care Physician HPI The patient is a 32-year-old man, domiciled with his mother, single, unemployed, supported by [facility], with extensive psychiatric history of schizophrenia, alcohol use disorder, numerous psychiatric hospitalizations, known by the service, last hospitalization was here in [place] was about 2 weeks ago, documentation was reviewed, outpatient service in [facility], his on Haldol 15 mg mg twice a day, Depakote 500 mg twice a day, medical history of asthma, brought in by police under a Avila Act. He has history of schizophrenia and has been here multiple times in the past. Per Avila Act, patient was arguing with his mother and ran into traffic. The patient was admitted by me, follow- up in inpatient by Dr. Casarez. At the moment of the psychiatric evaluation the patient is calm, cooperative, he tells me that he is ready to be discharge, denies depression, reports good mood, denies suicidal enemas ideation, he denies visual and auditory hallucinations. The patient reports that he wants to take his medications and continue psychiatric care as an outpatient. Past Family Social History Coded Allergies: No Known Allergies (Verified Allergy, Unknown, 01/20/18) Active Scripts Fluphenazine Decanoate Inj (Fluphenazine Decanoate Inj) 125 Mg/5 Ml Inj, 25 MG IM Q21D for Mental Health, #1 VIAL 0 Refills This dose of Prolixin Dec is due on 02/07/2018. Prov:Wally Casarez MD 01/27/18 Risperidone (Risperdal) 1 Mg Tab, 4 MG PO Q12HR for Mental Health for 15 Days, TAB 1 Refill Prov:Wally Casarez MD 01/27/18 Divalproex ER (Depakote ER) 500 Mg Daniele, 1500 MG PO DAILY for Mental Health for 15 Days, #45 TAB 1 Refill Prov:Wally Casarez MD 01/27/18 Ibuprofen (Ibuprofen) 600 Mg Tab, 600 MG PO Q8HR Y for PAIN for 10 Days, TAB 0 Refills Prov:Naren Elam MD 4/19/18 Discontinued Scripts Sulfamethoxazole-Trimethoprim (Bactrim DS) 800-160 Mg Tab, 1 TAB PO BID for Infection, #14 TAB 0 Refills Prov:Naren Elam MD 01/16/18 Aripiprazole Maintena Dual Chamber Inj (Abilify Maintena Dual Chamber Inj) 400 Mg Inj, 400 MG IM Q28D for Mental Health, #1 SYRINGE 0 Refills This dose of Abilify Maintena is due on 01/08/18. Discuss with your outpatient provider about possibly switching to Haldol Decanoate instead. Prov:Wally Casarez MD 12/30/17 Haloperidol (Haloperidol) 5 Mg Tab, 15 MG PO TID for Mental Health for 15 Days, TAB 1 Refill Prov:Wally Casarez MD 12/30/17 Divalproex ER (Depakote ER) 500 Mg Daniele, 1000 MG PO DAILY for Mental Health for 15 Days, #30 TAB 1 Refill Prov:Wally Casarez MD 12/30/17 Current Medications Medications (Trade) Dose Ordered Sig/Nelson Route Start Time Stop Time Status Last Admin (Ativan) 1 mg Q6H PRN PO 01/20/18 11:00 01/25/18 21:09 (Ativan Inj) 1 mg Q6H PRN IM 01/20/18 11:00 (Tylenol) 650 mg Q4H PRN PO 01/20/18 11:00 (Milk Of Magnesia Liq) 30 ml DAILY PRN PO 01/20/18 11:00 (Mag-Al Plus Susp Liq) 30 ml Q6H PRN PO 01/20/18 11:00 (Habitrol 21 Mg Patch.24 Hr) 1 patch DAILY T-DERMAL 01/21/18 09:00 01/23/18 08:10 (Depakote Er) 1,500 mg DAILY PO 01/21/18 10:45 01/27/18 08:07 (risperDAL) 4 mg Q12HR PO 01/21/18 11:15 01/27/18 08:07 Patient's Strengths (min. 2) In a monitored setting. Verbally fluent. Physical Exam Vital Signs Vital Signs Date Time Temp Pulse Resp B/P (MAP) Pulse Ox O2 Delivery O2 Flow Rate FiO2 01/27/18 06:21 97.2 57 16 90/54 (42) 100 Mental Status Examination Appearance: Malodorous Consciousness: Alert Orientation: Person, Place Motor Activity: Other (No abnormal motor movements noted) Speech: Unremarkable Language: Adequate Fund of Knowledge: Inadequate Attention and Concentration: Easily Distracted Memory: Unremarkable Mood: Other (Calm) Affect: Blunt Thought Process & Associations: Circumstantial Thought Content: Appropriate Hallucination Type: None Delusion Type: None Suicidal Ideation: No Suicidal Plan: No Suicidal Intention: No Homicidal Ideation: No Homicidal Plan: No Homicidal Intention: No Insight: Poor Judgment: Poor Assessment & Plan Problem List: (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 Casarez, I admitted this patient, and I have the same concern that Dr. Casarez about his multiple psychiatric hospitalization due to the lack of adherence and compliance to medications. For this reason, I second the opinion that he qualifies for involuntary outpatient treatment. Consult appreciated. Assessment & Plan Estimated LOS: days Request HC Surrog/Guard Advoc?: Yes Raj Adler MD Jan 27, 2018 11:53
== END 2018-01-27 12:15 | disposition home or self-care (01) | DRG 885 ==
LOC: NEPD 09:25 → NEDA 01-20 10:58 → H270 01-20 13:20
PROVIDERS: ADMIT Psychiatry & Neurology Psychiatry; ATTEND Psychiatry & Neurology Psychiatry
DX: F20.1 Disorganized schizophrenia (principal); F79 Unspecified intellectual disabilities; D64.9 Anemia, unspecified; D72.819 Decreased white blood cell count, unspecified; Z91.14 Patient's other noncompliance with medication regimen
CPT/HCPCS: 80048; 80053; 80164; 80307; 82728; 83540; 83550; 85014; 85018; 85025; 96372; J1630; J2060; J3230

== ENCOUNTER 2018-08-24 12:35 | Inpatient (IN) ==
[2018-08-24] MEDS ORDERED: Haloperidol Inj 5 MG/ML Ampul IM ONE (12:52)
--- NOTE | 2018-08-24 13:15 | ED ---
HPI General Chief complaint: Psychiatric Symptoms Stated complaint: Psych eval / DB[facility] Time Seen by Provider: 08/24/18 12:52 History of Present Illness HPI narrative: All patient is a 33-year-old male with a history of schizophrenia presents the emergency department under Pure life renal act for evaluation. According to police commanding officer juarez called 9 1 secondary to his behavior. He was placed under Pure life renal act and transported here. The patient's history is that "Lisa beat [place] [employer] on their [place] last night and I have been able to sleep since". He is quite bizarre and flight of ideas eyes are wide open. His history is significantly limited. He states that he has no physical complaints and no pain anywhere. His history is limited by his psychosis. Related Data Home Medications Medication Instructions Recorded Confirmed No Known Home Medications 04/15/18 04/15/18 Allergies Allergy/AdvReac Type Severity Reaction Status Date / Time No Known Allergies Allergy Unknown Uncoded 01/20/18 10:58 Review of Systems ROS: all other systems reviewed are negative PMFSH Social History Social History Second Hand Smoke Exposure: No Smoking Status: Current every day smoker Tobacco Type: Cigars How Often Do You Have a Drink Containing Alcohol: 4 or more times a week Exam Narrative Exam Narrative: GENERAL: Well-nourished, well-developed patient. Heightened sense of awareness, does not blink, flat affect. SKIN: Focused skin assessment warm/dry. No rash no wound seen on his person. HEAD: Normocephalic. EYES: No scleral icterus. No injection or drainage. NECK: Supple, trachea midline. No JVD or lymphadenopathy. CARDIOVASCULAR: Regular rate and rhythm without murmurs, gallops, or rubs. RESPIRATORY: Breath sounds equal bilaterally. No accessory muscle use. GASTROINTESTINAL: Abdomen soft, non-tender, nondistended. MUSCULOSKELETAL: No cyanosis, or edema. BACK: Nontender without obvious deformity. No CVA tenderness. NEUROLOGIC: Cranial nerves II through XII appear to be intact and no gross deformity. Moves all 4 extremity's, and relates with an even narrow-base gait. PSYCHIATRIC: Patient is quite bizarre, flight of ideas, nonsensical at times. Course Initial Documented Vital Signs Temperature 98.2 F 08/24/18 17:01 Pulse Rate 72 08/24/18 17:01 Respiratory Rate 18 08/24/18 17:01 Blood Pressure 103/56 L 08/24/18 17:01 Pulse Oximetry 97 08/24/18 17:01 Last Documented Vital Signs Temperature 98.2 F 08/24/18 17:01 Pulse Rate 72 08/24/18 17:01 Respiratory Rate 18 08/24/18 17:01 Blood Pressure 103/56 L 08/24/18 17:01 Pulse Oximetry 97 08/24/18 17:01 Medical Decision Making MDM Narrative Medical decision making narrative: Patient room in the emergency department, appears to be suffering from an acute psychosis. According to Avila act mom called 911 because the patient has been off of his meds since April. He is quite flight of ideas. Immediately recognized by J [facility] personnel the patient was planned for admission. He unfortunately had to be sedated and mechanically restrained for a short period of time. He ultimately consented to have his blood drawn. Blood results are still pending at the time of admission but psychiatric personnel including Sugey GANDHI would like to move him to 2700 unit which I think is appropriate. I think that the blood work is probably low yield and if there is significant abnormality medicine service can be consulted. In my opinion the patient is medically cleared for psychiatric admission. Medical Screen Exam Complete: Yes Emergency Medical Condition: Yes Lab Data Lab Results 08/24/18 Range/Units 15:10 Urine Opiates Screen Neg (Neg) Ur Barbiturates Screen Neg (Neg) Ur Amphetamines Screen Neg (Neg) U Benzodiazepines Scrn Neg (Neg) Urine Cocaine Screen Neg (Neg) U Cannabinoids Screen Neg (Neg) Discharge Plan Discharge Disposition Patient Disposition: 30 Still Patient Discharge Details Diagnosis: Acute psychosis, Chronic schizophrenia Physicians Team ED Provider: Chucky Aguilar Primary Care Provider: UNKNOWN, Rxs /Orders / Referrals /Forms Prescriptions: No Action No Known Home Medications RF: 0 Discharge Interventions Interventions: Vital Signs Last Done: 08/24/18 17:01 Status ED Status: Medically Cleared
[2018-08-24 15:58] LABS: Amphetamine Screen,Urine Neg (Neg); Barbiturate Screen,Urine Neg (Neg); Cannabinoid Screen,Urine Neg (Neg); Cocaine Screen,Urine Neg (Neg)
[2018-08-24 16:00] LABS: Opiate Screen,Urine Neg (Neg)
[2018-08-24 18:22] LABS: Baso % (Auto) 0.8 % (0.0-2.0); Eos # (Auto) 0.1 th/mm3 (0.0-0.4); Hematocrit 46.3 % (39.0-51.0); Hemoglobin 16.5 gm/dL (13.0-17.0); Lymph # (Auto) 1.7 th/mm3 (1.0-4.8); Lymph % (Auto) 31.7 % (9.0-44.0); Mean Corpuscular HGB Conc 35.6 % (32.0-36.0); Mean Corpuscular Hemoglobin 32.2 pg (27.0-34.0); Mean Corpuscular Volume 90.5 fL (80.0-100.0); Mean Platelet Volume 6.6 fL (7.0-11.0); Mono # (Auto) 0.5 th/mm3 (0.0-0.9); Mono % (Auto) 9.4 % (0.0-8.0); Neut % (Auto) 56.1 % (16.0-70.0); Platelet Count 318 th/mm3 (150-450); Red Blood Count 5.11 mil/mm3 (4.50-5.90); White Blood Count 5.3 th/mm3 (4.0-11.0)
[2018-08-24] MEDS ORDERED: Aluminum/Magnesium/Simethacone Susp 30 ML UDC PO PRN (18:22)
--- NOTE | 2018-08-24 18:42 | P.PNPSY ---
History of Present Illness HPI narrative: All patient is a 33-year-old, -British, single, male with history of schizophrenia, multiple psychiatric hospitalizations, medication noncompliant, presents the emergency department under Avila act for evaluation. The [place]ila act alleges that the patient has been behaving in an erratic and aggressive matter. His mother reports that he has not been taking his medication since April. He is displaying paranoid behavior, running and out of traffic and attempting to attack random people. Upon arrival to the unit the patient is psychotic. He was dressed in multiple layers of clothing, malodorous, initially refusing to change into the hospital attire. Appears internally preoccupied. Patient appears to be experiencing paranoia. Patient at times had unconsolable episodes of crying. Patient required ETO in the ED due to his agitated behavior. Staff attempted to contact his mother but were unable to do so. At this time the patient will be admitted for safety, stabilization, and treatment. Dx. Schizophrenia
[2018-08-24 19:05] LABS: Alanine Aminotransferase 21 U/L (12-78); Albumin 3.7 g/dL (3.4-5.0); Anion Gap 5 meq/L (5-15); Aspartate Aminotransferase 38 U/L (15-37); Blood Urea Nitrogen 5 mg/dL (7-18); Calcium 9.1 mg/dL (8.5-10.1); Carbon Dioxide 28.1 meq/L (21.0-32.0); Chloride 93 meq/L (98-107); Glomerular Filtration Rate Greater Than 89 mL/min (>89); Glucose,Random 80 mg/dL (74-106); Magnesium 2.4 mg/dL (1.5-2.5); Potassium 4.2 meq/L (3.5-5.1); Sodium 126 meq/L (136-145)
[2018-08-24 19:10] LABS: Alkaline Phosphatase 66 U/L (45-117); Total Protein 7.2 g/dL (6.4-8.2)
[2018-08-25 09:41] LABS: Anion Gap 7 meq/L (5-15); Blood Urea Nitrogen 4 mg/dL (7-18); Calcium 8.9 mg/dL (8.5-10.1); Carbon Dioxide 25.6 meq/L (21.0-32.0); Chloride 99 meq/L (98-107); Cholesterol 110 mg/dL (120-200); Glomerular Filtration Rate Greater Than 89 mL/min (>89); Glucose,Random 93 mg/dL (74-106); Potassium 4.2 meq/L (3.5-5.1); Sodium 132 meq/L (136-145)
[2018-08-25 09:45] LABS: Chol/HDL Ratio 1.87 Ratio; HDL Cholesterol 58.6 mg/dL (40.0-60.0); LDL Cholesterol,Calculated 44 mg/dL (0-99); Triglycerides 35 mg/dL (42-150)
--- NOTE | 2018-08-25 10:04 | P.HPPSY ---
Provisional Diagnosis Admission Date: August 24, 2018 18:28 [place] I.: 1. Schizophrenia, disorganized type, acute exacerbation [place] II.: Deferred Competence Certification of Person's Competence To Provide Express and Informed Consent I have personally examined Danny Mcmanus, a person being served at [facility] on, August 25, 2018 0958. Express and informed consent means consent voluntarily given in writing, by a competent person, after sufficient explanation and disclosure of the subject matter involved to enable the person to make a knowing and willful decision without any element of force, fraud, deceit, duress, or other form of constraint or coercion. This person is 18 years of age or older, is not now known to be incompetent to consent to treatment with a guardian advocate, and does not have a health care surrogate or proxy currently making medical treatment decisions. I have found this person to be one of the following: [] Competent to provide express and informed consent, as defined above, for voluntary admission to this facility and is competent to provide express and informed consent for treatment. He/she has the consistent capacity to make well reasoned, willful, and knowing decisions concerning his or her medical or mental health treatment. The person fully and consistently understands the purpose of the admission for examination/placement and is fully capable of personally exercising all rights assured under [place] [X] Incompetent to provide express and informed consent to voluntary admission, and this is incompetent to provide express and informed consent to treatment. The person must be transferred to involuntary status and a petition for a guardian advocate filed with the Circuit Court. [] Refusing to provide express and informed consent to voluntary admission but is competent to provide express and informed consent for treatment. The person must be discharged or transferred to involuntary status. Form shall be completed within 24 hours of a person's arrival at the receiving facility and filed in the clinical record of each person: 1. Admitted on a voluntary basis 2. Permitted to provide express and informed consent to his/her own treatment 3. Allowed to transfer from involuntary to voluntary status 4. Prior to permitting a person to consent to his or her own treatment after having been previously found incompetent to consent to treatment. History of Present Illness Capacity: Lacks capacity Chief Complaint: Psychosis History of Present Illness: Mr. Mcmanus is a 33-year-old male with a history of schizophrenia who is brought in under a Avila act by [place] police department alleging that the patient has been behaving in an erratic and aggressive manner. Patient's mother indicated that the patient has been nonadherent with his psychotropic medication and has been exhibiting mood swings, aggressive behavior and has been running in and out of traffic and attempting to attack random people. Patient was evaluated by the psychiatric nurse practitioner in the ED. Patient is very well-known to the psychiatric service here from multiple previous psychiatric admissions. He was most recently admitted under my care in December of this year. Patient seen and examined with nurse. Chart reviewed. Case discussed with nursing staff. Nursing reports that patient initially presented wearing over 2 dozen shirts and a similar number of other garments. He was reportedly incontinent of urine and his clothing was soaked with urine. He has been very paranoid on the unit and frequently has outbursts because he misinterprets other people's benign comments in conversation as being directed against him. He has not been sleeping. On my examination today, the patient presents as paranoid. Thought process is fairly tangential. He tells me "I found a new remedy. They put needles in my body. It is called Skull-berries. It has licorice in the middle. I have been doing it forever. It helps me calm down. That is my new remedy. 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 He denies SI or HI. He is frankly internally stimulated. He tells me that he was trying to get to the [place] prior to admission. Psychiatric interview is quite limited because of patient's degree of psychiatric impairment. He is unable to provide any meaningful past psychiatric, family, chemical dependency or social history. No acute physical complaints. I did endeavor to reach out to patient's mother for collateral and to obtain consent for medications. I left a generic voicemail requesting a call back. - Inpatient Certification I certify that the inpatient services were ordered in accordance with Medicare regulations governing the order. This includes certification that hospital inpatient services are reasonable and necessary and in the case of services not specified as inpatient-only under 42 CFR 419.22(n), that they are appropriately provided as inpatient services in accordance to with the 2-midnight benchmark under 43 CFR 412.3(e) I certify that inpatient psychiatric hospital services are medically necessary. Evaluation and treatment and/or diagnostic testing are expected to improve the patient's condition. The patient needs on a daily basis, active treatment furnished directly by or requiring the supervision of inpatient psychiatric facility personnel. Estimated Total Length of Stay (Days): 14 (14+) Plans for Post Hospital Care: Not yet determined Review of Systems unobtainable due to mental condition PMFSH - History History Provided By: Patient, Medical Record - Medical History Medical History: Medical History (Last Reviewed 08/24/18 @ 13:31 by Bety Sung) Inguinal hernia Schizophrenia - Tobacco History Second Hand Smoke Exposure: No Tobacco Use In Past 30 Days: Yes Smoking Status: Current every day smoker Tobacco Type: Cigars - Alcohol History How Often Do You Have a Drink Containing Alcohol: 4 or more times a week - Substance Use History Substance History: Unable to Obtain - Travel History Recent Travel in the USA Within the Last 8 Weeks: No Recent Travel Out of the Country Within the Last 8 Weeks: No - Immunization History Tetanus Immunization: >5 Years Hx Influenza Vaccine This Season: Yes Quality Measures - Psychiatric History Psychological trauma history: No reported trauma history to me. - Patient Strengths Patient's strengths (minimum of 2): In a monitored setting. Verbally fluent. Medications and Allergies Active Medications: Active Medications Al Hydrox/Mg Hydrox/Simethicone (Mag-Al Plus Susp Liq) 30 ml PO Q6H PRN PRN Reason: DYSPEPSIA Al Hydroxide/Mg Hydroxide (Milk Of Magnesia Liq) 30 ml PO Q12H PRN PRN Reason: Mild Constipation Sennosides (Senokot) 17.2 mg PO Q12H PRN PRN Reason: Moderate Constipation Ziprasidone (Geodon Inj) 20 mg IM Q12H PRN PRN Reason: SEVERE AGITATION Allergies Allergy/AdvReac Type Severity Reaction Status Date / Time No Known Allergies Allergy Unknown Uncoded 01/20/18 10:58 Home Medications Medication Instructions Recorded Confirmed Type No Known Home Medications 04/15/18 04/15/18 History Results - Labs CBC & Chem 7: 08/24/18 18:05 08/25/18 08:43 Labs: Laboratory Results - last 24 hr 08/24/18 08/24/18 08/24/18 15:10 18:05 18:05 WBC 5.3 RBC 5.11 Hgb 16.5 Hct 46.3 MCV 90.5 MCH 32.2 MCHC 35.6 RDW 14.0 Plt Count 318 MPV 6.6 L Neut % (Auto) 56.1 Lymph % (Auto) 31.7 [place] % (Auto) 9.4 H Eos % (Auto) 2.0 Baso % (Auto) 0.8 Neut # (Auto) 3.0 Lymph # (Auto) 1.7 [place] # (Auto) 0.5 Eos # (Auto) 0.1 Baso # (Auto) 0.0 WBC Differential . Differential Comment Auto diff final Sodium 126 L Potassium 4.2 Chloride 93 L Carbon Dioxide 28.1 Anion Gap 5 BUN 5 L Creatinine 0.84 Estimated GFR Greater than 89 Random Glucose 80 Calcium 9.1 Magnesium 2.4 Total Bilirubin 0.5 AST 38 H ALT 21 Alkaline Phosphatase 66 Total Protein 7.2 Albumin 3.7 Triglycerides Cholesterol LDL Cholesterol, Calc HDL Cholesterol Cholesterol/HDL Ratio TSH 1.330 Urine Opiates Screen Neg Ur Barbiturates Screen Neg Ur Amphetamines Screen Neg U Benzodiazepines Scrn Neg Urine Cocaine Screen Neg U Cannabinoids Screen Neg Serum Alcohol Less than 3 08/25/18 08:43 WBC RBC Hgb Hct MCV MCH MCHC RDW Plt Count MPV Neut % (Auto) Lymph % (Auto) [place] % (Auto) Eos % (Auto) Baso % (Auto) Neut # (Auto) Lymph # (Auto) [place] # (Auto) Eos # (Auto) Baso # (Auto) WBC Differential Differential Comment Sodium 132 L Potassium 4.2 Chloride 99 Carbon Dioxide 25.6 Anion Gap 7 BUN 4 L Creatinine 0.90 Estimated GFR Greater than 89 Random Glucose 93 Calcium 8.9 Magnesium Total Bilirubin AST ALT Alkaline Phosphatase Total Protein Albumin Triglycerides 35 L Cholesterol 110 L LDL Cholesterol, Calc 44 HDL Cholesterol 58.6 Cholesterol/HDL Ratio 1.87 TSH Urine Opiates Screen Ur Barbiturates Screen Ur Amphetamines Screen U Benzodiazepines Scrn Urine Cocaine Screen U Cannabinoids Screen Serum Alcohol Labs reviewed. Exam Vital signs: Vital Signs 08/24/18 17:01 08/24/18 18:35 Temperature 98.2 F 98.6 F Pulse Rate 72 71 Respiratory Rate 18 18 Blood Pressure 103/56 L 121/75 Pulse Oximetry 97 100 Narrative: Physical examination completed by ED provider. On my examination today, the patient appears to be in no acute physical distress. No motor abnormalities noted. He is quite disheveled. He appears thinner than in previous visits. Labs and vitals reviewed. Mental Status Examination Appearance: Disheveled Consciousness: Alert, Vigilant Orientation: Person, Place Motor Activity: Normal gait Speech: Rapid Language: Other (Rambling) Fund of Knowledge: Inadequate Attention and Concentration: Easily distracted Memory: Impaired (Psychosis interferes) Mood: Irritable Affect: Labile Thought Process & Associations: Disorganized Thought Content: Hallucinations, Delusional Hallucination Type: Other (Appears internally stimulated) Delusion Type: Paranoid Suicidal Ideation: No (Unreliable to contract for safety) Suicidal Plan: No Suicidal Intention: No Homicidal Ideation: No (Unreliable to contract for safety) Homicidal Plan: No Homicidal Intention: No Insight: Poor Judgment: Poor Assessment and Plan - Assessment (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 On my examination today, the patient presents as very disorganized and disheveled. He is also quite paranoid. He reportedly has been nonadherent with his psychotropic medications. Aggressive behavior is alleged in the Avila act and the patient has an obvious self-care deficit secondary to his psychosis. The patient requires psychiatric hospitalization at this time for safety, observation and stabilization. Admit inpatient. Involuntary status. I have completed first opinion. Consult for second opinion. Request healthcare surrogate and guardian advocate. Psychotropic medications are on hold for lack of consent at this time. I will continue to endeavor to reach out to patient's mother who is the presumptive healthcare surrogate. Repeat BMP in the morning to follow-up electrolyte abnormalities. Vitals every shift. Counselor to see. Disposition planning. Estimated length of stay: 14+ days. Justification for Continued Inpatient Stay: Impairment in self-care. Impairment in reality construction. Medication changes planned. High risk for decompensation in less restrictive environment. Discharge Planning: Probable state hospital referral. Request Healthcare Surrogate/Guardian Advocate?: Yes
[2018-08-25 13:46] LABS: Hemoglobin A1c 5.4 % (4.3-6.0)
[2018-08-25] MEDS ORDERED: Acetaminophen 325 MG Tablet PO PRN (15:09)
[2018-08-25] MEDS ORDERED: Benztropine Inj 2 MG/2 ML Ampul IM PRN (15:10)
[2018-08-25] MEDS ORDERED: Paliperidone Inj 234 MG/1.5 ML Syringe IM ONE (15:11)
[2018-08-25] MEDS ORDERED: Haloperidol Inj 5 MG/ML Ampul IM STA (15:24)
[2018-08-25] MEDS ORDERED: Benztropine Inj 2 MG/2 ML Ampul IM STA (15:25)
[2018-08-25] MEDS ORDERED: Haloperidol Inj 5 MG/ML Ampul ONE (15:30)
[2018-08-25] MEDS: Divalproex 500 MG ER Tablet PO SCH (20:34)
[2018-08-25] MEDS: risperiDONE 1 MG ODT PO SCH (20:36)
[2018-08-26] MEDS: risperiDONE 1 MG ODT PO SCH ×2 (08:21→20:20)
[2018-08-26 10:25] LABS: Anion Gap 5 meq/L (5-15); Blood Urea Nitrogen 4 mg/dL (7-18); Calcium 9.2 mg/dL (8.5-10.1); Carbon Dioxide 31.4 meq/L (21.0-32.0); Chloride 98 meq/L (98-107); Glomerular Filtration Rate Greater Than 89 mL/min (>89); Glucose,Random 64 mg/dL (74-106); Sodium 134 meq/L (136-145)
--- NOTE | 2018-08-26 11:12 | P.CONPSY ---
Provisional Diagnosis Admission Date: August 24, 2018 18:28 [place] I.: 1. Schizophrenia, disorganized type, acute exacerbation [place] II.: Deferred History of Present Illness Service: ER Primary Care Provider: UNKNOWN History of Present Illness: Mr. Mcmanus is a 33-year-old male with a history of schizophrenia who is brought in under a Avila act by [place] police department alleging that the patient has been behaving in an erratic and aggressive manner. Patient's mother indicated that the patient has been nonadherent with his psychotropic medication and has been exhibiting mood swings, aggressive behavior and has been running in and out of traffic and attempting to attack random people. Patient was evaluated by the psychiatric nurse practitioner in the ED. Patient is very well-known to the psychiatric service here from multiple previous psychiatric admissions. He was most recently admitted under my care in December of this year. Patient seen and examined with nurse. Chart reviewed. Case discussed with nursing staff. Nursing reports that patient initially presented wearing over 2 dozen shirts and a similar number of other garments. He was reportedly incontinent of urine and his clothing was soaked with urine. He has been very paranoid on the unit and frequently has outbursts because he misinterprets other people's benign comments in conversation as being directed against him. He has not been sleeping. On my examination today, the patient presents as paranoid. Thought process is fairly tangential. He tells me "I found a new remedy. They put needles in my body. It is called Skull-berries. It has licorice in the middle. I have been doing it forever. It helps me calm down. That is my new remedy. 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 He denies SI or HI. He is frankly internally stimulated. He tells me that he was trying to get to the [place] prior to admission. Psychiatric interview is quite limited because of patient's degree of psychiatric impairment. He is unable to provide any meaningful past psychiatric, family, chemical dependency or social history. No acute physical complaints. The patient is a 33-year-old -[place] man, well-known by the service, psychiatric history of schizophrenia, multiple psychiatric admissions, noncompliant with medications, this time [place] acted by law enforcement due to psychotic behavior. Consulted to me for second opinion. In my assessment the patient is found in his room, very disorganized, tangential, poor historian. The patient is fully oriented x3, denies suicidal and homicidal ideation, denies visual and auditory hallucinations, but has been acting very erratically in the unit. [facility] - History History Provided By: Patient, Medical Record - Medical History Medical History: Medical History (Last Reviewed 08/24/18 @ 13:31 by Bety Sung) Inguinal hernia Schizophrenia - Tobacco History Second Hand Smoke Exposure: No Tobacco Use In Past 30 Days: Yes Smoking Status: Current every day smoker Tobacco Type: Cigars - Alcohol History How Often Do You Have a Drink Containing Alcohol: 4 or more times a week - Substance Use History Substance History: Unable to Obtain - Travel History Recent Travel in the USA Within the Last 8 Weeks: No Recent Travel Out of the Country Within the Last 8 Weeks: No - Immunization History Tetanus Immunization: >5 Years Hx Influenza Vaccine This Season: Yes Medications and Allergies Active Medications: Active Medications Acetaminophen (Tylenol) 650 mg PO Q4H PRN PRN Reason: PAIN 1-10 AND/OR FEVER >101F Al Hydrox/Mg Hydrox/Simethicone (Mag-Al Plus Susp Liq) 30 ml PO Q6H PRN PRN Reason: DYSPEPSIA Al Hydroxide/Mg Hydroxide (Milk Of Magnesia Liq) 30 ml PO Q12H PRN PRN Reason: Mild Constipation Benztropine Mesylate (Cogentin Inj) 1 mg IM Q12H PRN PRN Reason: EXTRA PYRAMIDAL SYMPTOMS Benztropine Mesylate (Cogentin) 1 mg PO Q12H PRN PRN Reason: EXTRA PYRAMIDAL SYMPTOMS Diphenhydramine HCl (Benadryl) 50 mg PO HS PRN PRN Reason: INSOMNIA Last Admin: 08/25/18 20:35 Dose: 50 mg Divalproex Sodium (Depakote Er) 1,000 mg PO HS KEYANA Last Admin: 08/25/18 20:34 Dose: 1,000 mg Lorazepam (Ativan) 1 mg PO Q6H PRN PRN Reason: MODERATE TO SEVERE ANXIETY Lorazepam (Ativan Inj) 1 mg IM Q6H PRN PRN Reason: MODERATE TO SEVERE ANXIETY Last Admin: 08/25/18 15:47 Dose: 1 mg Risperidone (Risperdal M-Tab) 1 mg PO BID KEYANA Last Admin: 08/26/18 08:21 Dose: 1 mg Allergies Allergy/AdvReac Type Severity Reaction Status Date / Time No Known Allergies Allergy Unknown Uncoded 01/20/18 10:58 Home Medications Medication Instructions Recorded Confirmed Type No Known Home Medications 04/15/18 04/15/18 History Exam Vital signs: Vital Signs 08/25/18 15:47 08/26/18 05:26 Temperature 98.1 F 97.4 F L Pulse Rate 62 54 L Respiratory Rate 18 18 Blood Pressure 108/67 110/65 Pulse Oximetry 99 100 Mental Status Examination Appearance: Disheveled Consciousness: Alert, Vigilant Orientation: Person, Place Motor Activity: Normal gait Speech: Rapid Language: Other (Rambling) Fund of Knowledge: Inadequate Attention and Concentration: Easily distracted Memory: Impaired (Psychosis interferes) Mood: Irritable Affect: Labile Thought Process & Associations: Disorganized Thought Content: Hallucinations, Delusional Hallucination Type: Other (Appears internally stimulated) Delusion Type: Paranoid Suicidal Ideation: No (Unreliable to contract for safety) Suicidal Plan: No Suicidal Intention: No Homicidal Ideation: No (Unreliable to contract for safety) Homicidal Plan: No Homicidal Intention: No Insight: Poor Judgment: Poor Assessment and Plan - Assessment (1) 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 Casarez assessment and plan. Justification for Continued Inpatient Stay: Continue admission Request Healthcare Surrogate/Guardian Advocate?: Yes
--- NOTE | 2018-08-26 11:15 | P.PNPSY ---
Subjective Chief Complaint: Psychosis Remarks: Patient seen and examined with nurse. Chart reviewed. Case discussed with nursing staff who reports patient remains disorganized, easily agitated. He had an episode of incontinence of urine overnight. Became agitated yesterday afternoon and required Haldol IM ETO. On my examination today, the patient remains fairly disorganized. His grooming is somewhat improved. He denies hallucinations but appears internally preoccupied. He tells me "I am my own surgeon." Becomes quite defensive and irritable when I tried to question him about his episode of incontinence overnight. No side effects from medications. No physical complaints. Vital Signs Temp Pulse Resp BP Pulse Ox 08/26/18 05:26 97.4 F L 54 L 18 110/65 100 08/25/18 15:47 98.1 F 62 18 108/67 99 Laboratory Results - last 24 hr 08/25/18 08/26/18 08:43 09:45 Sodium 134 L Potassium 4.0 Chloride 98 Carbon Dioxide 31.4 Anion Gap 5 BUN 4 L Creatinine 0.95 Estimated GFR Greater than 89 Random Glucose 64 L Hemoglobin A1c 5.4 Calcium 9.2 Labs reviewed. Sodium improved. Review of Systems unobtainable due to mental condition Mental Status Examination Appearance: Disheveled Consciousness: Alert, Vigilant Orientation: Person, Place Motor Activity: Normal gait, Other (No hand tremor, no cogwheeling, no dystonia , no dyskinesia, no other motor abnormalities noted) Speech: Rapid Language: Other (Rambling) Fund of Knowledge: Inadequate Attention and Concentration: Easily distracted Memory: Impaired (Psychosis interferes) Mood: Irritable Affect: Labile Thought Process & Associations: Disorganized Thought Content: Hallucinations, Delusional Hallucination Type: Other (Remains internally stimulated) Delusion Type: Paranoid Suicidal Ideation: No Homicidal Ideation: No Insight: Poor Judgment: Poor Assessment and Plan - Assessment (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 Plan for booster dose of Invega Sustenna later in the week. Continue Depakote as ordered with plans to obtain Depakote level later in the week. Obtain urinalysis. Continue to monitor on the high acuity unit. Continue other medications and care as ordered. Justification for Continued Inpatient Stay: Risk for decompensation and less restrictive environment. Impairment in reality construction. Discharge Planning: To be determined. Request Healthcare Surrogate/Guardian Advocate?: Yes
[2018-08-26 16:00] LABS: Bilirubin,Urine Negative (Negative); Clarity,Urine Clear (Clear); Color,Urine Yellow (Yellw/Straw); Glucose,Urine (UA) Negative (Negative); Leukocyte Esterase,Urine Negative (Negative); Mucus,Urine Few /lpf (Occasional); Nitrite,Urine Negative (Negative); Specific Gravity,Urine 1.009 (1.002-1.035)
--- NOTE | 2018-08-26 16:04 | ECG ---
Date Performed: 08/25/2018 Time Performed: 13:26:42 PTAGE: 33 years EKG: SINUS BRADYCARDIA INDETERMINATE AXIS INCOMPLETE RIGHT BUNDLE BRANCH BLOCK ABNORMAL ECG PREVIOUS TRACING : 12/02/2017 16.31 Since the previous tracing, no significant change noted DOCTOR: Leila Montes Interpretating Date/Time 08/26/2018 16:02:15
[2018-08-26] MEDS: Divalproex 500 MG ER Tablet PO SCH (20:19)
[2018-08-26] MEDS: LORazepam 1 MG Tablet PO PRN (23:07)
[2018-08-27] MEDS: risperiDONE 1 MG ODT PO SCH (09:33)
--- NOTE | 2018-08-27 09:56 | P.PNPSY ---
Subjective Chief Complaint: Psychosis Remarks: Patient seen and examined with nurse. Chart reviewed. Case discussed with nursing staff who reports patient continues to display loosening of associations and paranoia. On my examination today, patient is sitting in the day area, intently perusing the newspaper. His affect is fairly irritable, and patient tells me "I woke up on the wrong side of the bed." He tells me "I found my own cure. It's writ foods! It's writ foods! I can't say the eaton; it's my secret." He remains internally preoccupied and paranoid. No side effects from medications. No physical complaints. Vital Signs Temp Pulse Resp BP Pulse Ox 08/27/18 05:43 97.4 F L 90 18 112/65 100 08/26/18 18:29 99.1 F 70 18 97/55 L 98 Laboratory Results - last 24 hr 08/26/18 15:45 Urine Color Yellow Urine Clarity Clear Urine pH 6.0 Ur Specific [place] 1.009 Urine Protein Negative Urine Glucose (UA) Negative Urine Ketones Trace H Urine Occult Blood Negative Urine Nitrate Negative Urine Bilirubin Negative Urine Urobilinogen Less than 2 Ur Leukocyte Esterase Negative Urine WBC Less than 1 Urine Mucus Few H Micro UA Comment Culture not ind Ur Microscopic Review Not Reportable Urine Culture Comments Culture not ind Labs reviewed. UA fairly bland, and no further episodes of enuresis. Review of Systems All other systems reviewed negative except as stated in HPI Mental Status Examination Appearance: Disheveled Consciousness: Alert, Vigilant Orientation: Person, Place Motor Activity: Normal gait, Other (No motor abnormalities noted.) Speech: Rapid Language: Other (Remains fairly rambling) Fund of Knowledge: Inadequate Attention and Concentration: Easily distracted Memory: Impaired (Psychosis interferes) Mood: Irritable Affect: Irritable Thought Process & Associations: Tangential Thought Content: Hallucinations, Delusional Hallucination Type: Other (Int stim) Delusion Type: Paranoid Suicidal Ideation: No Homicidal Ideation: No Insight: Poor Judgment: Poor Assessment and Plan - Assessment (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 Titrate oral Risperdal to 2 mg twice daily to target residual psychotic symptoms. Plan for booster dose of Invega Sustenna later in the week. Continue Depakote as ordered with plans to obtain a Depakote and ammonia level later in the week. Continue to monitor on the high acuity unit. Continue other medications and care as ordered. Justification for Continued Inpatient Stay: Medication changes. Impairment in reality construction. Impairment in self- care. High risk for decompensation in less restrictive environment. Discharge Planning: Pending psychiatric stabilization. [place] [facility] tomorrow. Request Healthcare Surrogate/Guardian Advocate?: Yes
[2018-08-27] MEDS: Divalproex 500 MG ER Tablet PO SCH (20:23)
[2018-08-27] MEDS: risperiDONE 2 MG ODT PO SCH (20:24)
[2018-08-28] MEDS: risperiDONE 2 MG ODT PO SCH (09:18)
--- NOTE | 2018-08-28 09:59 | P.PNPSY ---
Subjective Chief Complaint: Psychosis Remarks: Patient seen and examined on unit following [place] [facility]. Chart reviewed. Case discussed with nursing staff. Nursing reports that patient refused his oral meds this morning. He is noted to be somewhat agitated and very paranoid. He has been yelling into the phone, although it is not clear whether there is anyone on the other end. On my exam, patient remains fairly disorganized. He is not irritable but does seem a little agitated, I suspect because he was retained on the unit by the career law clerk. He remains internally stimulated and paranoid. He has no medication side effects, no physical complaints. Vital Signs Temp Pulse Resp BP Pulse Ox 08/28/18 05:16 98.0 F 84 16 129/79 100 08/27/18 15:58 98.3 F 65 18 94/55 L 100 Labs reviewed. No new labs. Review of Systems All other systems reviewed negative except as stated in HPI Mental Status Examination Appearance: Disheveled Consciousness: Alert, Vigilant Orientation: Person, Place Motor Activity: Normal gait, Other (No abnormal motor movements noted) Speech: Rapid Language: Other (Remains fairly rambling) Fund of Knowledge: Inadequate Attention and Concentration: Easily distracted Memory: Impaired (Psychosis interferes) Mood: Anxious Affect: Anxious Thought Process & Associations: Tangential, Other (Disorganized at times) Thought Content: Hallucinations, Delusional Hallucination Type: Other (Remains internally preoccupied) Delusion Type: Paranoid Suicidal Ideation: No Homicidal Ideation: No Insight: Poor Judgment: Poor Assessment and Plan - Assessment (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 This is supplementing Invega Sustenna. Plan to administer booster dose of Invega Sustenna later in the week. Continue Depakote as ordered with plans for Depakote level tomorrow evening. Continue to monitor on high acuity unit. Continue other care as ordered. Patient's case was presented to the [place] [facility], and the patient was retained on the unit by the career law clerk with patient's mother to serve as guardian advocate. Justification for Continued Inpatient Stay: Medication changes. Impairment in reality construction. High risk for decompensation in less restrictive environment. Discharge Planning: Pending psychiatric stabilization. I will initiate a [facility] psychiatric hospital referral now in the event that patient cannot be stabilized and safely discharged. Request Healthcare Surrogate/Guardian Advocate?: Yes
[2018-08-28] MEDS: Divalproex 500 MG ER Tablet PO SCH (20:29)
[2018-08-28] MEDS: risperiDONE 3 MG ODT PO SCH (20:30)
[2018-08-29] MEDS: risperiDONE 3 MG ODT PO SCH ×2 (09:35→20:42)
--- NOTE | 2018-08-29 10:08 | P.PNPSY ---
Subjective Chief Complaint: Psychosis Remarks: Patient seen and examined. Chart reviewed. Case discussed with nursing staff reports patient remains fairly disorganized and malodorous. Case discussed in treatment team. On my examination today, the patient presents in a similar fashion. Thought process remains fairly disorganized. He does say "I am not a doctor. I need to understand M and D." Remains somewhat paranoid. No side effects from medications. No physical complaints. Vital Signs Temp Pulse Resp BP Pulse Ox 08/29/18 05:46 97.3 F L 62 17 122/80 98 08/28/18 22:45 17 08/28/18 17:35 97.5 F L 82 17 106/56 L 100 Intake and Output 08/28/18 08/29/18 08/29/18 22:59 06:59 14:59 Intake Total 240 / 240 Balance 240 / 240 Intake: Oral 240 / 240 Labs reviewed. No new labs. Review of Systems All other systems reviewed negative except as stated in HPI Mental Status Examination Appearance: Disheveled Consciousness: Alert, Vigilant Orientation: Person, Place Motor Activity: Normal gait, Other (No motoric abnormalities noted) Speech: Rapid Language: Other (Somewhat rambling) Fund of Knowledge: Inadequate Attention and Concentration: Easily distracted Memory: Impaired (Psychosis interferes) Mood: Anxious Affect: Anxious Thought Process & Associations: Tangential, Other (At times disorganized) Thought Content: Hallucinations, Delusional Hallucination Type: Other (Remains somewhat internally stimulated) Delusion Type: Paranoid Suicidal Ideation: No Homicidal Ideation: No Insight: Poor Judgment: Poor Assessment and Plan - Assessment (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 I will additionally check LFTs and also check BMP as patient was somewhat hyponatremic and VPA can affect sodium levels. Plan to administer Sustenna booster tomorrow. Continue oral Risperdal supplementation for now, but to consider tapering this if patient begins to experience side effects as Sustenna plasma levels rise. Continue to monitor on the inpatient unit. Continue other medications and care as ordered. Justification for Continued Inpatient Stay: Impairment in reality construction. High risk for decompensation in less restrictive environment. Discharge Planning: [facility] hospital referral. Request Healthcare Surrogate/Guardian Advocate?: Yes
--- NOTE | 2018-08-29 12:06 | P.TTN ---
- Patient Problems Problems: 1. Discharge planning 2. Medication compliance 3. Knowledge deficit 4. Lack of coping skills - Progress Toward Goals Provider Present: Dr. Adrianna Caasrez (Increased respirdol) Psychiatric Counselors Present: Angel Dobbins Jr., [facility] ([facility]) Group Spec/RT/OT/MENDOZA Present: REJI Tolentino (Pt. attends select groups. Pt. is often disorganized with flight of ideas.) - Documentation Teaching Recipient: Patient
[2018-08-29 19:45] LABS: Alanine Aminotransferase 15 U/L (12-78); Albumin 3.8 g/dL (3.4-5.0); Alkaline Phosphatase 63 U/L (45-117); Anion Gap 4 meq/L (5-15); Aspartate Aminotransferase 14 U/L (15-37); Blood Urea Nitrogen 15 mg/dL (7-18); Calcium 9.2 mg/dL (8.5-10.1); Chloride 99 meq/L (98-107); Glomerular Filtration Rate Greater Than 89 mL/min (>89); Glucose,Random 91 mg/dL (74-106); Potassium 4.2 meq/L (3.5-5.1); Sodium 134 meq/L (136-145); Valproic Acid 66 mcg/mL (50-100)
[2018-08-29] MEDS: Divalproex 500 MG ER Tablet PO SCH (20:41)
[2018-08-30] MEDS ORDERED: Paliperidone Inj 156 MG/ML Syringe IM ONE (09:00)
[2018-08-30] MEDS: risperiDONE 3 MG ODT PO SCH ×2 (11:50→20:49)
--- NOTE | 2018-08-30 16:19 | P.PNPSY ---
Subjective Chief Complaint: Psychosis Remarks: Reviewed electronic medical records and discussed case with staff. Follow-up was conducted in the hallway with MACKENZIE Loyola present. His nurse reports his behavior has been bizarre today. Patient states that he feels "all right". States he is sleeping pretty good has had a good appetite. He reports that his mood is good and states that he never has any problem with his mood. He did receive in [place] sustain a shot recent is cooperative and follows the conversation well however he still easily distracted. Mental Status Examination Appearance: Disheveled Consciousness: Alert, Vigilant Orientation: Person, Place Motor Activity: Normal gait, Other (No motoric abnormalities noted) Speech: Rapid Language: Other (Somewhat rambling) Fund of Knowledge: Inadequate Attention and Concentration: Easily distracted Memory: Impaired (Psychosis interferes) Mood: Anxious Affect: Anxious Thought Process & Associations: Tangential, Other (At times disorganized) Thought Content: Hallucinations, Delusional Hallucination Type: Other (Remains somewhat internally stimulated) Delusion Type: Paranoid Suicidal Ideation: No Suicidal Plan: No Suicidal Intention: No Homicidal Ideation: No Homicidal Plan: No Homicidal Intention: No Insight: Poor Judgment: Poor Assessment and Plan - Assessment (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 Continue with current treatment plan. Justification for Continued Inpatient Stay: Moving this patient to a less restrictive environment would likely result in decompensation. Request Healthcare Surrogate/Guardian Advocate?: Yes
[2018-08-30] MEDS: Divalproex 500 MG ER Tablet PO SCH (20:49)
[2018-08-31] MEDS: risperiDONE 3 MG ODT PO SCH ×2 (08:39→21:04)
--- NOTE | 2018-08-31 10:57 | P.PNPSY ---
Subjective Chief Complaint: Psychosis Remarks: Reviewed electronic medical records and discussed case with staff. Follow-up was conducted in the visiting area with MACKENZIE Yo present. Patient received his second dose of Invega Sustenna ARELLANO yesterday. Endorses no auditory or visual hallucinations. Nursing reports that he has been more social. He is in the common area watching television. Patient states that he will ask his mother to take him to [facility] for his follow up injections as he feels so much better with the medication. Review of Systems All other systems reviewed negative except as stated in HPI Mental Status Examination Appearance: Disheveled Consciousness: Alert, Vigilant Orientation: Person, Place Motor Activity: Normal gait, Other (No motoric abnormalities noted) Speech: Rapid Language: Other (Somewhat rambling) Fund of Knowledge: Inadequate Attention and Concentration: Easily distracted Memory: Impaired (Psychosis interferes) Mood: Anxious Affect: Anxious Thought Process & Associations: Other (At times disorganized) Thought Content: Appropriate Hallucination Type: None Delusion Type: Paranoid Suicidal Ideation: No Suicidal Plan: No Suicidal Intention: No Homicidal Ideation: No Homicidal Plan: No Homicidal Intention: No Insight: Poor Judgment: Poor Assessment and Plan - Assessment (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 Continue with current treatment plan. Justification for Continued Inpatient Stay: Moving patient to a less restrictive environment may result in his decompensation. Request Healthcare Surrogate/Guardian Advocate?: Yes
[2018-08-31] MEDS: Divalproex 500 MG ER Tablet PO SCH (21:04)
[2018-09-01] MEDS: risperiDONE 3 MG ODT PO SCH ×2 (08:28→20:46)
--- NOTE | 2018-09-01 09:52 | P.PNPSY ---
Subjective Chief Complaint: Psychosis Remarks: Patient seen and examined with nurse. Chart reviewed. Case discussed with nursing staff. Nursing notes that the patient is improving with medication treatment. He does have some ongoing paranoia and has been noted by staff to avoid the pink colored tiles on the floor because he is worried they are shooting laser beams into the lights above. He is also reportedly fairly paranoid regarding laboratory and pharmacy staff who come on the unit. He also reportedly has been drinking quite a bit of water, and I will check a BMP to evaluate his electrolytes, see below. On my examination today, the patient presents as fairly well groomed with a brighter affect. He tells me "I slept real good." He denies any hallucinations. He does exhibit some ongoing thought disorder, although this does seem to be improving. He denies any suicidal or homicidal ideation. He denies any side effects from medications. No physical complaints. Vital Signs Temp Pulse Resp BP Pulse Ox 09/01/18 05:43 98.3 F 75 16 108 H 08/31/18 17:32 98.2 F 65 18 117/60 100 08/31/18 16:48 98.2 F 65 18 117/60 100 Intake and Output 08/31/18 09/01/18 09/01/18 22:59 06:59 14:59 Other: Weight 65.3 kg Laboratory Results - last 24 hr 09/01/18 10:14 Sodium 138 Potassium 3.9 Chloride 100 Carbon Dioxide 34.0 H Anion Gap 4 L BUN 11 Creatinine 0.86 Estimated GFR Greater than 89 Random Glucose 86 Calcium 8.7 BMP fairly unremarkable. Electrolytes within normal limits. Depakote level was 66, within the therapeutic range. Ammonia level was not elevated. Review of Systems All other systems reviewed negative except as stated in HPI (Limitation: Poor historian) Mental Status Examination Appearance: Other (Fair) Consciousness: Alert Orientation: Person, Place (At least) Motor Activity: Normal gait, Other (No abnormal motor movements noted) Speech: Unremarkable Language: Other (More focused) Fund of Knowledge: Inadequate Attention and Concentration: Easily distracted Memory: Impaired (Psychosis interferes) Mood: Appropriate Affect: Appropriate Thought Process & Associations: Other (Improving but still fairly disorganized at times.) Thought Content: Appropriate Hallucination Type: None Delusion Type: Paranoid Suicidal Ideation: No Suicidal Plan: No Suicidal Intention: No Homicidal Ideation: No Homicidal Plan: No Homicidal Intention: No Insight: Poor Judgment: Poor Assessment and Plan - Assessment (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 Could consider increasing dose of oral Risperdal to 4 mg twice a day, but it is my hope that the plasma levels of Invega Sustenna will begin to provide adequate antipsychotic effect as they rise. Continue Depakote as ordered. Continue to monitor on the inpatient unit. Continue other medications and care as ordered. Justification for Continued Inpatient Stay: Resolving impairments in reality construction. High risk for decompensation in less restrictive environment. Discharge Planning: [facility] psychiatric hospital referral Request Healthcare Surrogate/Guardian Advocate?: Yes
[2018-09-01 10:51] LABS: Anion Gap 4 meq/L (5-15); Blood Urea Nitrogen 11 mg/dL (7-18); Calcium 8.7 mg/dL (8.5-10.1); Chloride 100 meq/L (98-107); Glomerular Filtration Rate Greater Than 89 mL/min (>89); Glucose,Random 86 mg/dL (74-106); Potassium 3.9 meq/L (3.5-5.1); Sodium 138 meq/L (136-145)
[2018-09-01] MEDS: Divalproex 500 MG ER Tablet PO SCH (20:46)
[2018-09-02] MEDS: risperiDONE 3 MG ODT PO SCH ×2 (08:40→20:32)
--- NOTE | 2018-09-02 10:02 | P.PNPSY ---
Subjective Chief Complaint: Psychosis Remarks: Patient seen and examined with nurse. Chart reviewed. Case discussed with nursing staff. Case discussed in treatment team. On my exam, I find the patient playing Wii with peers. Affect is brighter and more euthymic. He tells me that he is good at bowling (the game they were playing), but his sport in high school was football. No delusional material verbalized today. Thought process is more organized. No medication side effects. He has no hand tremor, no cogwheeling, no hypomimia, no dystonia, no dyskinesia on exam. No physical complaints. We discuss discharge plan. Vital Signs Temp Pulse Resp BP Pulse Ox 09/02/18 05:59 98.4 F 76 18 117/66 97 09/01/18 16:59 97.5 F L 74 18 112/62 100 Labs reviewed. Review of Systems All other systems reviewed negative except as stated in HPI Mental Status Examination Appearance: Appropriate (Fair) Consciousness: Alert Orientation: Person, Place (At least) Motor Activity: Normal gait, Other (No motor abnormalities noted) Speech: Unremarkable Language: Other (More focused) Fund of Knowledge: Inadequate Attention and Concentration: Other (Improving) Memory: Unremarkable (fair) Mood: Appropriate Affect: Appropriate, Euthymic Thought Process & Associations: Circumstantial Thought Content: Appropriate Hallucination Type: None Delusion Type: None Suicidal Ideation: No Homicidal Ideation: No Insight: Poor Judgment: Poor Assessment and Plan - Assessment (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 Continue oral Risperdal supplementing Invega Sustenna. Continue Depakote as ordered. Continue to monitor on inpatient unit. Continue other medications and care as ordered. Justification for Continued Inpatient Stay: Resolving impairments in reality construction. High risk for decompensation in less restrictive setting. Discharge Planning: Placement ver state hospitalization. Request Healthcare Surrogate/Guardian Advocate?: Yes
[2018-09-02] MEDS: Divalproex 500 MG ER Tablet PO SCH (20:32)
--- NOTE | 2018-09-03 09:15 | P.PNPSY ---
Subjective Chief Complaint: Psychosis Remarks: Patient seen and examined with nurse. Chart reviewed. Case discussed with nursing staff reports patient remains somewhat paranoid but does seem to be clearing with current medications. Case discussed with counselor. On my examination today, the patient does indeed seem to be improving. Thought process is once again more organized. He denies SI, HI or AVH. He seems less paranoid, and for example I note that he is now walking freely on the pink floor tiles, which he had up till now avoided for reasons previously noted. Denies side effects from medications. No physical complaints. Vital Signs Temp Pulse Resp BP Pulse Ox 09/03/18 05:45 98.5 F 73 18 120/78 99 09/02/18 18:29 98 F 76 17 102/62 99 Labs reviewed. No new labs. Review of Systems All other systems reviewed negative except as stated in HPI Mental Status Examination Appearance: Appropriate Consciousness: Alert Orientation: Person, Place (At least) Motor Activity: Normal gait, Other (No abnormal motor movements noted) Speech: Unremarkable Language: Other (Fairly coherent throughout.) Fund of Knowledge: Inadequate Attention and Concentration: Other (Improving) Memory: Unremarkable (fair) Mood: Appropriate Affect: Appropriate, Euthymic Thought Process & Associations: Circumstantial Thought Content: Appropriate Hallucination Type: None Delusion Type: None Suicidal Ideation: No Homicidal Ideation: No Insight: Poor Judgment: Poor Assessment and Plan - Assessment (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 Patient seems to be benefiting from oral Risperdal supplementing Invega Sustenna without side effects, and so I will continue this combination for now. Continue to monitor on the inpatient unit. Continue other care as ordered. Justification for Continued Inpatient Stay: High risk for decompensation in less restrictive environment. Discharge Planning: States psychiatric hospitalization. Request Healthcare Surrogate/Guardian Advocate?: Yes
[2018-09-03] MEDS: risperiDONE 3 MG ODT PO SCH ×2 (09:50→20:48)
[2018-09-03] MEDS: Divalproex 500 MG ER Tablet PO SCH (20:49)
[2018-09-04] MEDS: risperiDONE 3 MG ODT PO SCH ×2 (08:43→20:47)
--- NOTE | 2018-09-04 11:48 | P.PNPSY ---
Subjective Chief Complaint: Psychosis Remarks: Patient seen and examined with nurse and counselor. Chart reviewed. Case discussed with nursing staff. On my examination today, the patient tells me that he is "feeling rejuvenated." He volunteers that he has not had an episode of enuresis in 5 days. He denies any SI or HI. Denies any AVH. Denies side effects from medications. No physical complaints. Vital Signs Temp Pulse Resp BP Pulse Ox 09/04/18 06:17 98.4 F 65 18 113/65 100 09/03/18 16:06 98.7 F 77 18 98/47 L 99 Intake and Output 09/03/18 09/04/18 09/04/18 22:59 06:59 14:59 Other: Weight 64.6 kg Labs reviewed. No new labs. Review of Systems All other systems reviewed negative except as stated in HPI Mental Status Examination Appearance: Appropriate Consciousness: Alert Orientation: Person, Place (At least) Motor Activity: Normal gait, Other (No motor abnormalities noted) Speech: Unremarkable Language: Adequate Fund of Knowledge: Inadequate Attention and Concentration: Other (Improving) Memory: Unremarkable (fair) Mood: Appropriate Affect: Appropriate, Euthymic Thought Process & Associations: Circumstantial (Remains circumstantial) Thought Content: Appropriate Hallucination Type: None Delusion Type: None Suicidal Ideation: No Suicidal Plan: No Suicidal Intention: No Homicidal Ideation: No Homicidal Plan: No Homicidal Intention: No Insight: Poor Judgment: Poor Assessment and Plan - Assessment (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 Continue Depakote as ordered. Continue to monitor on the inpatient unit, and continue other care as ordered. Justification for Continued Inpatient Stay: High risk for decompensation in less restrictive environment. Discharge Planning: State psychiatric hospitalization Request Healthcare Surrogate/Guardian Advocate?: Yes
[2018-09-04] MEDS: Divalproex 500 MG ER Tablet PO SCH (20:47)
--- NOTE | 2018-09-05 09:49 | P.TTN ---
- Patient Problems Problems: 1. Discharge planning 2. Medication compliance 3. Knowledge deficit 4. Lack of coping skills - Progress Toward Goals Provider Present: Dr. Adrianna Casarez (Dr. Casarez is not titrating any medications, patient needs to remain for further stabilization with the intent of state hospitalization as soon as possible.) Provider Input: 09/02/2018 Currently on Risperadal and Invega Sustenna. Will be starting Depakote. Chronic illness, on the [facility] Wait List. Psychiatric Counselors Present: Angel Dobbins Jr., [facility] (Angel completed [facility] packet on Saturday, September 03, 2018.), Other Psychiatric Therapist Input: 09/02/2017 He will require supportive assisted living and should be a secure facility. Mother has been taking care of him. Group Spec/RT/OT/MENDOZA Present: REJI Montoya (Patient does not attend groups at this time.), REJI Tolentino (Pt. attends select groups. Pt. is often disorganized with flight of ideas.), Other Group Spec/RT/OT/MENDOZA Input: 09/02/2018 Does a few groups but minimal participation. - Documentation Teaching Recipient: Patient
[2018-09-05] MEDS: risperiDONE 3 MG ODT PO SCH (09:53)
--- NOTE | 2018-09-05 10:22 | P.PNPSY ---
Subjective Chief Complaint: Psychosis Remarks: Patient seen and examined with nurse. Chart reviewed. Case discussed with nursing staff. Patient presenting no significant behavioral problem although he reportedly did become somewhat animated on the telephone earlier today. Case discussed in treatment team. Patient noted to attend select groups, although his behavior is generally appropriate in these groups. On my examination today, the patient is in good spirits. He denies any audiovisual hallucinations. No SI or HI. Somewhat evasive when nurse tries to inquire about phone conversation noted earlier. Denies side effects from medications. No physical complaints. Vital Signs Temp Pulse Resp BP Pulse Ox 09/05/18 06:00 98.4 F 73 18 09/04/18 16:46 98.4 F 81 17 116/66 100 Labs reviewed. No new labs. Review of Systems All other systems reviewed negative except as stated in HPI (Limitation: Poor historian) Mental Status Examination Appearance: Appropriate Consciousness: Alert Orientation: Person, Place (At least) Motor Activity: Normal gait, Other (No abnormal motor movements noted) Speech: Unremarkable Language: Adequate Fund of Knowledge: Inadequate Attention and Concentration: Other (Continues to improve) Memory: Unremarkable (fair) Mood: Appropriate Affect: Appropriate, Euthymic Thought Process & Associations: Circumstantial Thought Content: Appropriate Hallucination Type: None Delusion Type: None Suicidal Ideation: No Homicidal Ideation: No Insight: Poor Judgment: Poor Assessment and Plan - Assessment (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 Continue Depakote as ordered. Continue to monitor on the inpatient unit. Continue other medications and care as ordered. Justification for Continued Inpatient Stay: High risk for decompensation in less restrictive environment. Discharge Planning: [facility]. Request Healthcare Surrogate/Guardian Advocate?: Yes
[2018-09-06] MEDS: risperiDONE 3 MG ODT PO SCH ×3 (00:59→20:12)
[2018-09-06] MEDS: Divalproex 500 MG ER Tablet PO SCH ×2 (00:59→20:12)
--- NOTE | 2018-09-06 16:14 | P.PNPSY ---
Subjective Chief Complaint: Psychosis Remarks: Pt seen and discussed with staff. He was compliant with medications today and has been less suspicious of staff. He is pleasant but disorganized. He has been refusing to step on certain floor tiles and hygiene is poor. Mental Status Examination Appearance: Appropriate Consciousness: Alert Orientation: Person, Place (At least) Motor Activity: Normal gait, Other (No abnormal motor movements noted) Speech: Unremarkable Language: Adequate Fund of Knowledge: Inadequate Attention and Concentration: Other (Continues to improve) Memory: Unremarkable (fair) Mood: Appropriate Affect: Appropriate, Euthymic Thought Process & Associations: Loose associations Thought Content: Delusional Hallucination Type: None Delusion Type: Bizarre Suicidal Ideation: No Suicidal Plan: No Suicidal Intention: No Homicidal Ideation: No Homicidal Plan: No Homicidal Intention: No Insight: Poor Judgment: Poor Assessment and Plan - Assessment (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
[2018-09-07] MEDS: risperiDONE 3 MG ODT PO SCH ×2 (08:11→21:16)
--- NOTE | 2018-09-07 14:16 | P.PNPSY ---
Subjective Chief Complaint: Psychosis Remarks: Reviewed electronic medical record and discussed with nursing staff. Rounded with MACKENZIE Yo. Patient is cooperative, pleasant and very appreciative. Denies AVH. Eating and sleeping well. Nursing reports that he is on the list for the [facility]. Review of Systems All other systems reviewed negative except as stated in HPI Mental Status Examination Appearance: Appropriate Consciousness: Alert Orientation: Person, Place (At least) Motor Activity: Normal gait, Other (No abnormal motor movements noted) Speech: Unremarkable Language: Adequate Fund of Knowledge: Inadequate Attention and Concentration: Other (Continues to improve) Memory: Unremarkable (fair) Mood: Appropriate Affect: Appropriate, Euthymic Thought Process & Associations: Loose associations Thought Content: Delusional Hallucination Type: None Delusion Type: Bizarre Suicidal Ideation: No Suicidal Plan: No Suicidal Intention: No Homicidal Ideation: No Homicidal Plan: No Homicidal Intention: No Insight: Poor Judgment: Poor Assessment and Plan - Assessment (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 Request Healthcare Surrogate/Guardian Advocate?: Yes
[2018-09-07] MEDS: Divalproex 500 MG ER Tablet PO SCH (21:16)
[2018-09-08] MEDS: risperiDONE 3 MG ODT PO SCH ×2 (08:13→21:00)
--- NOTE | 2018-09-08 09:17 | P.PNPSY ---
Subjective Chief Complaint: Psychosis Remarks: Patient seen and examined with nurse. Chart reviewed. Case discussed with nursing who reports patient continues to slowly improve. He is still reportedly avoiding pink tiles on the floor, but he seems less anxious about these. Case discussed with counselor. On my exam, patient is in good spirits. He tells me that he had a good visit with his mother over the weekend. He tells me "both of us are doing good. We're gonna get our teeth checked out!" He speaks at length about his interest in video games. No medications side effects. No physical complaints. Vital Signs Temp Pulse Resp BP Pulse Ox 09/08/18 06:00 98.7 F 85 17 97/67 L 98 09/07/18 17:01 98.6 F 76 18 120/54 L 99 Intake and Output 09/07/18 09/08/18 09/08/18 22:59 06:59 14:59 Other: Weight 67.5 kg Labs reviewed. Review of Systems All other systems reviewed negative except as stated in HPI (Limitation: poor historian.) Mental Status Examination Appearance: Appropriate Consciousness: Alert Orientation: Person, Place (At least) Motor Activity: Normal gait, Other (No motor abnormalities noted.) Speech: Unremarkable Language: Adequate Fund of Knowledge: Inadequate Attention and Concentration: Other (Fair) Memory: Unremarkable (fair) Mood: Appropriate Affect: Appropriate, Euthymic Thought Process & Associations: Circumstantial Thought Content: Delusional Hallucination Type: None Delusion Type: Paranoid (very mild re: pink tiles) Suicidal Ideation: No Homicidal Ideation: No Insight: Poor Judgment: Poor Assessment and Plan - Assessment (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 When booster dose of Sustenna is due on 09/27, we might consider administering 234mg dose to see if we can taper and perhaps discontinue oral Risperdal without loss of control of psychotic symptoms. Continue Depakote as ordered. Continue to monitor on high acuity unit. I did discuss with nursing possibility of transfer to lower acuity unit, but I fear that patient will not be able to maintain in the less structured milieu at this point. Will plan to re-evaluate as patient continues to improve with respect to his psychosis. Continue other care as ordered. Justification for Continued Inpatient Stay: High risk for decompensation in less restrictive environment. [facility]charge Planning[facility] Request Healthcare Surrogate/Guardian Advocate?: Yes
[2018-09-08] MEDS: Divalproex 500 MG ER Tablet PO SCH (21:00)
[2018-09-09] MEDS: risperiDONE 3 MG ODT PO SCH ×2 (08:12→21:00)
--- NOTE | 2018-09-09 10:37 | P.PNPSY ---
Subjective Chief Complaint: Psychosis Remarks: Patient seen and examined. Chart reviewed. Case discussed with nursing staff. No behavioral issues noted. Patient continues to struggle with hygiene tasks at times. Case discussed in treatment team. Patient noted to be somewhat seclusive on the unit although he does attend select groups. On my examination today, the patient presents as euthymic. He speaks in a somewhat rambling fashion about his last name, likening [place] to "dextrous, left and right." He tells me "I'm into oceanography. I'm learning water levels." Denies side effects from medications. No physical complaints. Vital Signs Temp Pulse Resp BP Pulse Ox 09/09/18 06:05 97.6 F 72 18 111/71 98 09/08/18 15:28 98.6 F 79 18 131/66 100 Labs reviewed. No new labs. Review of Systems All other systems reviewed negative except as stated in HPI (Limitation: Poor historian) Mental Status Examination Appearance: Appropriate Consciousness: Alert Orientation: Person, Place (At least) Motor Activity: Normal gait, Other (No abnormal motor movements noted) Speech: Unremarkable Language: Adequate Fund of Knowledge: Inadequate Attention and Concentration: Other (Fair) Memory: Unremarkable (fair) Mood: Appropriate Affect: Appropriate, Euthymic (Remains euthymic) Thought Process & Associations: Circumstantial (Somewhat tangential at times) Thought Content: Bizarre thinking, Delusional Hallucination Type: None Delusion Type: Paranoid (mild) Suicidal Ideation: No Homicidal Ideation: No Insight: Poor Judgment: Poor Assessment and Plan - Assessment (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 Continue oral Risperdal supplementing Invega Sustenna as ordered. To consider further titration of the Risperdal versus augmentation with a different antipsychotic if patient fails to have adequate response to current therapy. Continue Depakote as ordered. Continue to monitor on inpatient unit. Continue other care as ordered. Justification for Continued Inpatient Stay: High risk for decompensation in less restrictive environment. Discharge Planning: [facility] referral. Request Healthcare Surrogate/Guardian Advocate?: Yes
--- NOTE | 2018-09-09 11:24 | P.TTN ---
- Patient Problems Problems: 1. Discharge planning 2. Medication compliance 3. Knowledge deficit 4. Lack of coping skills - Progress Toward Goals Provider Present: Dr. Adrianna Casarez (Patient needs to remain for further stabilization) Provider Input: 09/02/2018 Currently on Risperadal and Invega Sustenna. Will be starting Depakote. Chronic illness, on the State Wait List. Psychiatric Counselors Present: Angel Dobbins Jr., [facility] (Patient is a [facility] referral[facility] Other Psychiatric Therapist Input: 09/02/2017 He will require supportive assisted living and should be a secure facility. Mother has been taking care of him. Group Spec/RT/OT/MENDOZA Present: REJI Montoya (Patient attends select groups and remain seclusive.), REJI Tolentino (Pt. attends select groups. Pt. is often disorganized with flight of ideas.), Other Group Spec/RT/OT/MENDOZA Input: 09/02/2018 Does a few groups but minimal participation. - Documentation Teaching Recipient: Patient
[2018-09-09] MEDS: Divalproex 500 MG ER Tablet PO SCH (20:59)
[2018-09-09] MEDS: LORazepam 1 MG Tablet PO PRN (21:00)
[2018-09-10] MEDS: risperiDONE 3 MG ODT PO SCH (10:13)
--- NOTE | 2018-09-10 10:18 | P.PNPSY ---
Subjective Chief Complaint: Psychosis Remarks: Patient seen and examined with nurse. Chart reviewed. Case discussed with nursing staff. Patient noted to be perseverative on acquiring socks, and he can reportedly become somewhat agitated if he is not provided with additional pairs even though he already has several. Patient also reportedly has been having loud, animated conversations with someone on the phone. On my exam, patient presents as tangential, somewhat disorganized. Some delusional thinking noted. For example, patient is of the belief that he will be starting in a football game next week. He denies side effects from medications and says that the medications "calmed me down." No physical complaints. I tried to reach patient's mother/GA at both of the numbers in the EMR today to discuss patient's progress on the unit. Both of these numbers rang repeatedly with no opportunity to leave a voicemail. Vital Signs Temp Pulse Resp BP Pulse Ox 09/10/18 05:42 97.9 F 71 18 111/60 99 09/09/18 18:41 97.8 F 92 H 17 103/65 99 Labs reviewed. Review of Systems All other systems reviewed negative except as stated in HPI (Limitation: poor historian.) Mental Status Examination Appearance: Appropriate Consciousness: Alert Orientation: Person, Place (At least) Motor Activity: Normal gait, Other (No motor abnormalities noted.) Speech: Unremarkable Language: Adequate Fund of Knowledge: Inadequate Attention and Concentration: Other (Fair) Memory: Unremarkable (fair) Mood: Anxious Affect: Anxious Thought Process & Associations: Tangential (At times disorganized.) Thought Content: Bizarre thinking, Delusional Hallucination Type: None Delusion Type: Paranoid (mild), Other (grandiose, mild) Suicidal Ideation: No Homicidal Ideation: No Insight: Poor Judgment: Poor Assessment and Plan - Assessment (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 Continue Depakote as ordered. Continue other medications as ordered. Continue other care as ordered. Began termination/ transition of care discussion with patient in advance of this provider's departure on 09/16. Justification for Continued Inpatient Stay: Medication changes. Impairment in reality construction. High risk for decompensation in less restrictive setting. Discharge Planning: [facility] referral. Request Healthcare Surrogate/Guardian Advocate?: Yes
[2018-09-10] MEDS: Divalproex 500 MG ER Tablet PO SCH (20:56)
[2018-09-10] MEDS: risperiDONE 2 MG ODT PO SCH (20:56)
[2018-09-11] MEDS: risperiDONE 2 MG ODT PO SCH ×2 (08:16→20:19)
--- NOTE | 2018-09-11 10:18 | P.PNPSY ---
Subjective Chief Complaint: Psychosis Remarks: Patient seen and examined with nurse. Chart reviewed. Case discussed with nursing staff. On my examination today, patient continues to display some loose and bizarre ideation. He tells me that he does not knock on the nursing station glass to get items. 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 Affect is generally euthymic. No side effects from medications. No physical complaints. Vital Signs Temp Pulse Resp BP Pulse Ox 09/11/18 06:17 98.2 F 78 18 104/69 98 Labs reviewed. Review of Systems All other systems reviewed negative except as stated in HPI Mental Status Examination Appearance: Appropriate Consciousness: Alert Orientation: Person, Place (At least) Motor Activity: Normal gait, Other (No abnormal motor movements noted.) Speech: Unremarkable Language: Adequate Fund of Knowledge: Inadequate Attention and Concentration: Other (Fair) Memory: Unremarkable Mood: Appropriate Affect: Appropriate, Euthymic Thought Process & Associations: Tangential (At times disorganized.) Thought Content: Bizarre thinking Hallucination Type: None Delusion Type: None Suicidal Ideation: No Homicidal Ideation: No Insight: Poor Judgment: Poor Assessment and Plan - Assessment (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 Continue Depakote as ordered. Patient reports that mother will be coming for a visit this evening, and I will plan to touch base with mother by phone tomorrow , Saturday, to discuss treatment plan going forward. Continue to monitor on inpatient unit. Continue other care as ordered. Justification for Continued Inpatient Stay: High risk for decompensation in less restrictive setting. Discharge Planning: [facility] psychiatric hospital referral. Request Healthcare Surrogate/Guardian Advocate?: Yes
[2018-09-11] MEDS: Divalproex 500 MG ER Tablet PO SCH (20:19)
[2018-09-12] MEDS: risperiDONE 2 MG ODT PO SCH (09:16)
--- NOTE | 2018-09-12 10:58 | P.PNPSY ---
Subjective Chief Complaint: Psychosis Remarks: Patient seen and examined with counselor. Chart reviewed. Case discussed with nursing staff. Case discussed in treatment team. On my exam, patient is a little more agitated and thought disordered than in previous days. He speaks in a rambling fashion about attending [employer] every 3-4 years and says that they gave him a pair of [employer] sneakers. He then derails into conversation about [employer] phones and becomes quite animated, saying "I do not do drugs! I don't have a police record!" No side effects from medications. No physical complaints. Spoke with patient's mother/GA. She has spoken with patient since our last conversation and finds him more or less the same, still not at baseline. She does not support a clozapine trial at this time but agrees that trial of different oral antipsychotic is appropriate. After discussion of options in this regard, we settle on a return to Prolixin. We review the side effects of this medications including motor side effects, risk of NMS, risk of cardiac side effects. Ms. Mcmanus provides consent for Prolixin. Vital Signs Temp Pulse Resp BP Pulse Ox 09/12/18 06:00 97.8 F 70 16 103/73 96 09/11/18 16:49 98.4 F 83 18 107/53 L 97 Labs reviewed. Review of Systems All other systems reviewed negative except as stated in HPI Mental Status Examination Appearance: Appropriate Consciousness: Alert Orientation: Person, Place (At least) Motor Activity: Normal gait, Other (No motor abnormalities noted.) Speech: Unremarkable Language: Adequate Fund of Knowledge: Inadequate Attention and Concentration: Other (Fair) Memory: Unremarkable Mood: Anxious, Other (Agitated) Affect: Anxious Thought Process & Associations: Tangential (At times disorganized.) Thought Content: Bizarre thinking, Delusional Hallucination Type: None Delusion Type: Paranoid Suicidal Ideation: No Homicidal Ideation: No Insight: Poor Judgment: Poor Assessment and Plan - Assessment (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 Oral antipsychotic is supplementing Invega Sustenna. Continue Depakote as ordered. Continue other medications and care as ordered. Continue to monitor on the inpatient unit. Justification for Continued Inpatient Stay: Impairment in reality construction. Medication changes. High risk for decompensation in less restrictive environment. Discharge Planning: [facility] referral. Request Healthcare Surrogate/Guardian Advocate?: Yes
--- NOTE | 2018-09-12 14:52 | P.TTN ---
- Patient Problems Problems: 1. Discharge planning 2. Medication compliance 3. Knowledge deficit 4. Lack of coping skills - Progress Toward Goals Provider Present: Dr. Adrianna Casarez (Patient needs to remain for further stabilization.) Provider Input: 09/02/2018 Currently on Risperadal and Invega Sustenna. Will be starting Depakote. Chronic illness, on the State Wait List. Psychiatric Counselors Present: Angel Dobbins Jr., [facility] (There is no change in discharge plan, patient will await state hospitalization.), Other Psychiatric Therapist Input: 09/02/2017 He will require supportive assisted living and should be a secure facility. Mother has been taking care of him. Group Spec/RT/OT/MENDOZA Present: JOSE MIGUEL De La Vega (Patient attends select groups.), REJI Montoya (Patient attends select groups and remain seclusive.), REJI Tolentino (Pt. attends select groups. Pt. is often disorganized with flight of ideas.), Other Group Spec/RT/OT/MENDOZA Input: 09/02/2018 Does a few groups but minimal participation. - Documentation Teaching Recipient: Patient
[2018-09-12] MEDS: Divalproex 500 MG ER Tablet PO SCH (21:24)
--- NOTE | 2018-09-13 14:36 | P.PNPSY ---
Subjective Chief Complaint: Psychosis Remarks: Reviewed electronic medical records and discussed case with staff. Follow-up was conducted in the hallway with MACKENZIE Connelly present. She reports that he has been compliant with his treatment and had no behavioral disturbances. Patient states that he has been sleeping "pretty good". He has had a good appetite and his moods been good he denies any side effects from medications. The nurse reported to me that the patient has a possible infection of his right foot a rivet flunky consult has been entered. Mental Status Examination Appearance: Appropriate Consciousness: Alert Orientation: Person, Place (At least) Motor Activity: Normal gait, Other (No motor abnormalities noted.) Speech: Unremarkable Language: Adequate Fund of Knowledge: Inadequate Attention and Concentration: Other (Fair) Memory: Unremarkable Mood: Anxious, Other (Agitated) Affect: Anxious Thought Process & Associations: Tangential (At times disorganized.) Thought Content: Bizarre thinking, Delusional Hallucination Type: None Delusion Type: Paranoid Suicidal Ideation: No Suicidal Plan: No Suicidal Intention: No Homicidal Ideation: No Homicidal Plan: No Homicidal Intention: No Insight: Poor Judgment: Poor Assessment and Plan - Assessment (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 Continue with current treatment plan. Justification for Continued Inpatient Stay: Moving this patient to a less restrictive environment would likely result in decompensation. Request Healthcare Surrogate/Guardian Advocate?: Yes
[2018-09-13] MEDS: Divalproex 500 MG ER Tablet PO SCH (20:38)
--- NOTE | 2018-09-14 10:23 | P.PNPSY ---
Subjective Chief Complaint: Psychosis Remarks: Patient seen and examined. Chart reviewed. Case discussed with nursing staff. No behavioral issues noted. On my examination today, the patient exhibits some ongoing thought disorganization. He perseverates on attending college classes. He denies any SI or HI. He says that his medications are "working perfect" and he denies any side effects from medications. No physical complaints. Vital Signs Temp Pulse Resp BP Pulse Ox 09/14/18 06:00 98 F 71 18 102/68 96 09/13/18 18:04 97.5 F L 77 18 101/58 L 99 Labs reviewed. Review of Systems All other systems reviewed negative except as stated in HPI (Limitation: Thought disorder) Mental Status Examination Appearance: Appropriate Consciousness: Alert Orientation: Person, Place (At least) Motor Activity: Normal gait, Other (No abnormal motor movements noted) Speech: Unremarkable Language: Adequate Fund of Knowledge: Inadequate Attention and Concentration: Other (Fair) Memory: Unremarkable Mood: Appropriate Affect: Euthymic Thought Process & Associations: Tangential Thought Content: Bizarre thinking, Delusional Hallucination Type: None Delusion Type: Paranoid (Decreasing) Suicidal Ideation: No Suicidal Plan: No Suicidal Intention: No Homicidal Ideation: No Homicidal Plan: No Homicidal Intention: No Insight: Poor Judgment: Poor Assessment and Plan - Assessment (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 Continue to monitor on the high acuity unit. Continue other medications and care as ordered. Justification for Continued Inpatient Stay: Medication changes. Impairment in reality construction. High risk for decompensation and less restrictive environment. Discharge Planning: [facility] referral. Request Healthcare Surrogate/Guardian Advocate?: Yes
--- NOTE | 2018-09-14 16:46 | MB ---
cc: Filomena Mckeon DPM DATE: 09/14/2018 TIME PATIENT WAS SEEN: 11:30 REASON FOR CONSULTATION: Right heel wound. HISTORY OF PRESENT ILLNESS: The patient was admitted for psychosis. Podiatry was consulted for right heel wound. The patient was seen at bedside with nursing staff in attendance. He was compliant during his entire evaluation. REVIEW OF SYSTEMS: Limitations per HPI. MEDICATIONS: Per chart. PHYSICAL EXAMINATION: Right heel posterior calcaneus with a keratotic lesion. No opening, no redness, no drainage, no acute sign of infection. No pain on palpation. Nails 1-5 bilaterally are elongated, dystrophic and thick and yellow. Protective sensation intact. Muscle strength is +5/5. ASSESSMENT AND PLAN: 1. Keratoma. 2. Onychomycosis. RECOMMENDATIONS: Recommended that patient lace his shoes so that there is no friction at the posterior heel when he is ambulating. I will write for an emollient, softening; patient will do well with this. There is no acute sign of infection. Thank you for the kind consult. Podiatry signing off. Filomena Mckeon DPM SR/emma , 04:02 PM , 04:08 PM
[2018-09-14] MEDS: Divalproex 500 MG ER Tablet PO SCH (20:42)
[2018-09-14] MEDS: Lactic Acid (Ammonium Lactate) 12% Lotion 225 GM Bottle TOPICAL SCH (21:11)
[2018-09-15] MEDS: Lactic Acid (Ammonium Lactate) 12% Lotion 225 GM Bottle TOPICAL SCH ×2 (08:19→20:29)
--- NOTE | 2018-09-15 08:37 | P.PNPSY ---
Subjective Chief Complaint: Psychosis Remarks: Patient seen and examined. Chart reviewed. Case discussed with nursing staff. Patient noted to be a little less paranoid today. On my exam, patient is found standing in his room, looking out the window expectantly. He remains somewhat tangential. He speaks in a rambling fashion about paranoid feelings regarding college professors which derails into a discussion about drugs and finally patient concludes by saying that he plans to play in an upcoming sporting match. He exhibits some ongoing behavioral disorganization as well, for example putting hand lotion in his hair. Denies side effects from medications. No physical complaints. Vital Signs Temp Pulse Resp BP Pulse Ox 09/15/18 06:00 97.5 F L 60 18 107/61 97 09/14/18 15:54 98.6 F 75 18 114/71 100 Intake and Output 09/14/18 09/15/18 09/15/18 22:59 06:59 14:59 Other: Weight 70.2 kg Labs reviewed. No new labs. Review of Systems All other systems reviewed negative except as stated in HPI (Limitation: Poor historian) Mental Status Examination Appearance: Appropriate Consciousness: Alert Orientation: Person, Place (At least) Motor Activity: Normal gait, Other (No signs of EPS. 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 Prolixin is presently supplementing Invega Sustenna. Continue Depakote as ordered. Continue to monitor on the inpatient unit. Continue other care as ordered. I have continued my discussion with patient regarding transition of care in advance of this provider's departure 09/16. Justification for Continued Inpatient Stay: Medication changes. Impairment in reality construction. High risk for decompensation in less restrictive environment. Discharge Planning: [facility] psychiatric [facility] Request Healthcare Surrogate/Guardian Advocate?: Yes
[2018-09-15] MEDS: Divalproex 500 MG ER Tablet PO SCH (20:30)
[2018-09-16] MEDS: Lactic Acid (Ammonium Lactate) 12% Lotion 225 GM Bottle TOPICAL SCH ×2 (08:24→20:37)
--- NOTE | 2018-09-16 09:37 | P.PNPSY ---
Subjective Chief Complaint: Psychosis Remarks: Patient seen and examined. Chart reviewed. Case discussed with nursing staff. Patient has been no behavioral problem but has been somewhat distressed today secondary to a female peer on the unit who is agitated and distressing other patients. On my exam, patient's thought process is perhaps a little less tangential today, and he is able to hold a conversation for a short time about his activities last night and this morning, which included getting his clothes laundered and getting a shower. He denies SI/HI. Denies AVH. Denies side effects from medications. No physical complaints. Vital Signs Temp Pulse Resp BP Pulse Ox 09/16/18 06:02 98.1 F 69 18 102/58 L 100 09/15/18 17:09 70 18 112/60 98 Labs reviewed. No new labs. Review of Systems All other systems reviewed negative except as stated in HPI (Limitation: Poor historian) Mental Status Examination Appearance: Appropriate Consciousness: Alert Orientation: Person, Place (At least) Motor Activity: Normal gait, Other (No abnormal motor movements noted) Speech: Unremarkable Language: Adequate Fund of Knowledge: Inadequate Attention and Concentration: Other (Fair) Memory: Unremarkable Mood: Appropriate Affect: Blunt Thought Process & Associations: Tangential (Perhaps a little more linear today) Thought Content: Bizarre thinking Hallucination Type: None Delusion Type: None Suicidal Ideation: No Homicidal Ideation: No Insight: Poor Judgment: Poor Assessment and Plan - Assessment (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 Prolixin is supplementing Invega Sustenna and next dose of Invega Sustenna will be due on 09/27. To consider increasing to the 234 mg dose at that time. Continue Depakote as ordered. Continue to monitor on the inpatient unit. Continue other medications and care as ordered. I have discussed with patient that this is my last day at [facility] and that Dr. Stevens will be assuming care of his case tomorrow. Signout provided to Dr. Stevens. Justification for Continued Inpatient Stay: Impairment in reality construction. High risk for decompensation in less restrictive environment. Discharge Planning: State psychiatric hospitalization. Request Healthcare Surrogate/Guardian Advocate?: Yes
--- NOTE | 2018-09-16 09:57 | P.TTN ---
- Patient Problems Problems: 1. Discharge planning 2. Medication compliance 3. Knowledge deficit 4. Lack of coping skills - Progress Toward Goals Provider Present: Dr. Adrianna Casarez (Dr. Casarez is titrating medication Prolixin, Dr. Casarez we will move the patient back to the medications that previously stabilized the patient which were sustana and Depakote. Patient remains for further stabilization.) Provider Input: 09/02/2018 Currently on Risperadal and Invega Sustenna. Will be starting Depakote. Chronic illness, on the [facility] Wait List. Psychiatric Counselors Present: Angel Dobbins Jr., [facility] (Patient will be discharged to the [facility] for long-term stabilization.), Other Psychiatric Therapist Input: 09/02/2017 He will require supportive assisted living and should be a secure facility. Mother has been taking care of him. Group Spec/RT/OT/MENDOZA Present: JOSE MIGUEL De La Vega (Patient attends select groups.), REJI Montoya (Patient attends select groups and remain seclusive.), REJI Tolentino (Patient attends fresh air, she does not attend any structure groups at this time.), Other Group Spec/RT/OT/MENDOZA Input: 09/02/2018 Does a few groups but minimal participation. - Documentation Teaching Recipient: Patient
[2018-09-16] MEDS: Divalproex 500 MG ER Tablet PO SCH (20:38)
[2018-09-17] MEDS: Lactic Acid (Ammonium Lactate) 12% Lotion 225 GM Bottle TOPICAL SCH ×2 (09:13→20:25)
--- NOTE | 2018-09-17 10:39 | P.PNPSY ---
Subjective Chief Complaint: Psychosis Remarks: Patient is seen by me today in his room with floor staff, introduced myself and explained that I would be taking over his management. Patient did remember me from prior contacts. Patient is vague about auditory hallucinations at times he appears to be responding to internal stimuli. I reviewed his medication orders. Will order a Depakote blood level for tomorrow morning. Continue other medications no change at this time Review of Systems All other systems reviewed negative except as stated in HPI Mental Status Examination Appearance: Appropriate Consciousness: Alert Orientation: Person, Place (At least) Motor Activity: Normal gait, Other (No abnormal motor movements noted) Speech: Unremarkable Language: Adequate Fund of Knowledge: Inadequate Attention and Concentration: Other (Fair) Memory: Unremarkable Mood: Appropriate Affect: Blunt Thought Process & Associations: Tangential (Perhaps a little more linear today) Thought Content: Bizarre thinking Hallucination Type: None Delusion Type: None Suicidal Ideation: No Suicidal Plan: No Suicidal Intention: No Homicidal Ideation: No Homicidal Plan: No Homicidal Intention: No Insight: Poor Judgment: Poor Assessment and Plan - Assessment (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 Complaint medications. We will check Depakote blood level over in a.m. continue to await word from state hospital placement Justification for Continued Inpatient Stay: At this time patient with decompensated placed in a lower level of care Discharge Planning: Continue to await word from state hospital placement Request Healthcare Surrogate/Guardian Advocate?: Yes
--- NOTE | 2018-09-17 16:09 | P.TTN ---
- Patient Problems Problems: 1. Discharge planning 2. Medication compliance 3. Knowledge deficit 4. Lack of coping skills - Progress Toward Goals Provider Present: Dr. Mariana Stevens Provider Input: 09/17/18: Remain for further stabilization Paranoid. Patient has been placed on the [facility] waiting list. 09/02/2018 Currently on Risperadal and Invega Sustenna. Will be starting Depakote. Chronic illness, on the State Wait List. Nurse(s) Present: Maricel MANNgroup cio Counselors Present: Gudelia Lau, [facility], Anita Aburto [facility], Other Psychiatric Therapist Input: 09/17/18: [facility] packet completed Saturday. No attempts to divert the patient from the [facility] yet, Patient still Psychotic. 09/02/2017 He will require supportive assisted living and should be a secure facility. Mother has been taking care of him. Group Spec/RT/OT/MENDOZA Present: JOSE MIGUEL De La Vega (Patient attends select groups.), Maurice Correa OT Group Spec/RT/OT/MENDOZA Input: 09/17/18: Patient attends select group activities with encouragement. Pt remain psychotic but easily redirected. 09/02/2018 Does a few groups but minimal participation. - Discharge Plan 09/17/18: [facility] packet completed Saturday.No attempts to divert the patient from the [facility] yet. Remains Psychotic. - Documentation Teaching Recipient: Patient
[2018-09-17] MEDS: Divalproex 500 MG ER Tablet PO SCH (20:25)
[2018-09-18] MEDS: Lactic Acid (Ammonium Lactate) 12% Lotion 225 GM Bottle TOPICAL SCH ×2 (08:20→20:46)
--- NOTE | 2018-09-18 13:20 | P.PNPSY ---
Subjective Chief Complaint: Psychosis Remarks: Patient seen in his room with nurse Sanaz, chart reviewed, patient compliant medication. Depakote level drawn this a.m. is 90. Patient remains calm somewhat isolative. Continues to appear to be responding to internal stimuli. Though no other behavioral problems. Still has very little insight into his disease. He denies suicidality for now continue treatment Review of Systems All other systems reviewed negative except as stated in HPI Mental Status Examination Appearance: Appropriate Consciousness: Alert Orientation: Person, Place (At least) Motor Activity: Normal gait, Other (No abnormal motor movements noted) Speech: Unremarkable Language: Adequate Fund of Knowledge: Inadequate Attention and Concentration: Other (Fair) Memory: Unremarkable Mood: Appropriate Affect: Blunt Thought Process & Associations: Tangential (Perhaps a little more linear today) Thought Content: Bizarre thinking Hallucination Type: None Delusion Type: None, Other (Somewhat vigilant) Suicidal Ideation: No Suicidal Plan: No Suicidal Intention: No Homicidal Ideation: No Homicidal Plan: No Homicidal Intention: No Insight: Poor Judgment: Poor Assessment and Plan - Assessment (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 Continue to await word from state hospital placement Justification for Continued Inpatient Stay: At this time patient with decompensated placed on lower level of care Discharge Planning: Continue to await word from state hospital placement Request Healthcare Surrogate/Guardian Advocate?: Yes
[2018-09-18] MEDS: Divalproex 500 MG ER Tablet PO SCH (20:46)
[2018-09-19] MEDS: Lactic Acid (Ammonium Lactate) 12% Lotion 225 GM Bottle TOPICAL SCH ×2 (08:55→21:57)
--- NOTE | 2018-09-19 15:08 | P.PNPSY ---
Subjective Chief Complaint: Psychosis Remarks: Met with patient's mother and counselor Angel today mother feels his son is doing somewhat better though she is still quite concerned about his recidivism and his chronic alcohol abuse. She is aware of how this affects his cooperation with medication management and doctor visits. However patient has been cooperative so far on the unit. Patient is seen today after visit with mother he is alert oriented, cooperative he denies voices but I feel there may be some intermittent perceptual abnormalities. Denies suicidality. He does wish to go home with his supportive family he states he is willing to continue his medication and injections. I reviewed his injection history patient had an Martinez sustain a booster on 08/30. I will order Invega Sustenna 234 mg to be given 09/22 with the possibility of discharge home after that to follow-up stroke [place] act Review of Systems All other systems reviewed negative except as stated in HPI Mental Status Examination Appearance: Appropriate Consciousness: Alert Orientation: Person, Place (At least) Motor Activity: Normal gait, Other (No abnormal motor movements noted) Speech: Unremarkable Language: Adequate Fund of Knowledge: Inadequate Attention and Concentration: Other (Fair) Memory: Unremarkable Mood: Appropriate Affect: Blunt Thought Process & Associations: Tangential (Perhaps a little more linear today) Thought Content: Bizarre thinking Hallucination Type: None Delusion Type: None, Other (Somewhat vigilant) Suicidal Ideation: No Suicidal Plan: No Suicidal Intention: No Homicidal Ideation: No Homicidal Plan: No Homicidal Intention: No Insight: Poor Judgment: Poor Assessment and Plan - Assessment (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
[2018-09-19] MEDS: Divalproex 500 MG ER Tablet PO SCH (21:57)
--- NOTE | 2018-09-20 14:39 | P.PNPSY ---
Subjective Chief Complaint: Psychosis Remarks: Patient seen for follow-up, chart reviewed, patient discussed with nursing staff ; we reviewed the patient's mood, thoughts, and behaviors from overnight and this morning. Nurse reports that the patient slept 8 hours overnight and he has been calm and cooperative and appropriately behaving within the milieu. The patient did attempt to cheek his medications this morning but did not complain of side effects when challenged. The patient reports "I do not know why I am taking these medications". He denies active auditory or visual hallucinations. The patient made tangential statements during interview. Review of Systems unobtainable due to mental status Mental Status Examination Appearance: Appropriate Consciousness: Alert Orientation: Person, Place (At least) Motor Activity: Normal gait, Other (No abnormal motor movements noted) Speech: Unremarkable Language: Adequate Fund of Knowledge: Inadequate Attention and Concentration: Other (Fair) Memory: Unremarkable Mood: Appropriate Affect: Blunt Thought Process & Associations: Tangential (Perhaps a little more linear today) Thought Content: Bizarre thinking Hallucination Type: None Delusion Type: None, Other (Somewhat vigilant) Suicidal Ideation: No Suicidal Plan: No Suicidal Intention: No Homicidal Ideation: No Homicidal Plan: No Homicidal Intention: No Insight: Poor Judgment: Poor Assessment and Plan - Assessment (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 Continue inpatient observation and treatment which includes Depakote 1000 mg at bedtime, Prolixin 5 mg by mouth twice a day + 10 mg at bedtime, and Martinez sustain as ordered. Justification for Continued Inpatient Stay: Patient remains an elevated risk for self-harm by self neglect and will require further inpatient stabilization and preparation of a safe discharge plan. Moving patient to a less restrictive environment at this time may result in decompensation. Request Healthcare Surrogate/Guardian Advocate?: Yes
[2018-09-20] MEDS: Lactic Acid (Ammonium Lactate) 12% Lotion 225 GM Bottle TOPICAL SCH ×2 (17:03→20:22)
[2018-09-20] MEDS: Divalproex 500 MG ER Tablet PO SCH (20:21)
[2018-09-21] MEDS: Lactic Acid (Ammonium Lactate) 12% Lotion 225 GM Bottle TOPICAL SCH ×2 (08:57→20:30)
--- NOTE | 2018-09-21 12:04 | P.PNPSY ---
Subjective Chief Complaint: Psychosis Remarks: Reviewed electronic medical record and reviewed with staff. Patient is in room eating lunch. He denies auditory and visual hallucinations. He is asking about follow up and arranging for his injections as an outpatient. Appears to have improved significantly. He is cooperative, calm and there have not been any behavioral concerns. He is sleeping and eating well. Review of Systems All other systems reviewed negative except as stated in HPI Mental Status Examination Appearance: Appropriate Consciousness: Alert Orientation: Person, Place (At least) Motor Activity: Normal gait, Other (No abnormal motor movements noted) Speech: Unremarkable Language: Adequate Fund of Knowledge: Inadequate Attention and Concentration: Adequate Memory: Unremarkable Mood: Appropriate Affect: Appropriate Thought Process & Associations: Tangential (Perhaps a little more linear today) Thought Content: Bizarre thinking Hallucination Type: None Delusion Type: None, Other (Somewhat vigilant) Suicidal Ideation: No Suicidal Plan: No Suicidal Intention: No Homicidal Ideation: No Homicidal Plan: No Homicidal Intention: No Insight: Poor Judgment: Poor Assessment and Plan - Assessment (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 09/20/18 Patient's psychosis softening somewhat there is still showing little insight to see medication adjustments above. Continue inpatient observation and treatment which includes Depakote 1000 mg at bedtime, Prolixin 5 mg by mouth twice a day +10 mg at bedtime, and Martinez sustain as ordered. Justification for Continued Inpatient Stay: Moving patient to a less restrictive environment may result in his decompensation. Request Healthcare Surrogate/Guardian Advocate?: Yes
[2018-09-21] MEDS: Divalproex 500 MG ER Tablet PO SCH (20:31)
[2018-09-22 06:19] VITALS: BP 93/51; PULSE 60; RESP 18; TEMP 98.3; O2SAT 97
[2018-09-22] MEDS ORDERED: Paliperidone Inj 234 MG/1.5 ML Syringe IM SCH (08:00)
[2018-09-22] MEDS: Lactic Acid (Ammonium Lactate) 12% Lotion 225 GM Bottle TOPICAL SCH (08:29)
--- NOTE | 2018-09-22 11:08 | P.DSPSY ---
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 Mcmnaus is a 33-year-old male with a history of schizophrenia who is brought in under a [place] act by [place] police department alleging that the patient has been behaving in an erratic and aggressive manner. Patient's mother indicated that the patient has been nonadherent with his psychotropic medication and has been exhibiting mood swings, aggressive behavior and has been running in and out of traffic and attempting to attack random people. Patient was evaluated by the psychiatric nurse practitioner in the ED. Patient is very well-known to the psychiatric service here from multiple previous psychiatric admissions. He was most recently admitted under my care in December of this year. Patient seen and examined with nurse. Chart reviewed. Case discussed with nursing staff. Nursing reports that patient initially presented wearing over 2 dozen shirts and a similar number of other garments. He was reportedly incontinent of urine and his clothing was soaked with urine. He has been very paranoid on the unit and frequently has outbursts because he misinterprets other people's benign comments in conversation as being directed against him. He has not been sleeping. On my examination today, the patient presents as paranoid. Thought process is fairly tangential. He tells me "I found a new remedy. They put needles in my body. It is called Skull-berries. It has licorice in the middle. I have been doing it forever. It helps me calm down. That is my new remedy. 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 He denies SI or HI. He is frankly internally stimulated. He tells me that he was trying to get to the [facility] prior to admission. Psychiatric interview is quite limited because of patient's degree of psychiatric impairment. He is unable to provide any meaningful past psychiatric, family, chemical dependency or social history. No acute physical complaints. I did endeavor to reach out to patient's mother for collateral and to obtain consent for medications. I left a generic voicemail requesting a call back. Tobacco Use In Past 30 Days: Yes How Often Do You Have a Drink Containing Alcohol: 4 or more times a week Hospital Course: Patient's hospital course was initially showing slow response to the medication. His paranoia had behavior irritability responded quite slowly to the point where the treatment team felt that referral to the [facility] was indicated. The process was started. However the continued adjustment of the medication including the use of in Martinez sustain. Patient's behavior slowly calm down. He was never very interactive with the staff or the milieu but he showed no behavioral issues. He recently has denied voices or visions denies suicidality or homicidality. He is compliant with his medications. He also is compliant with follow-up in Martinez sustain her to 34 mg IM that was given today. We have had meetings with patient's mother. She feels she is doing better would like her son home for the holidays. Patient has made a commitment to us to maintain sobriety refrain from any type of alcoholic beverage. Be compliant with his medications. And follow-up outpatient [facility] for medication management and for injections services thus will be discharged today Rx times 1 month follow-up stroke [facility] act - Discharge Discharge Date: 09/22/18 - Discharge Diagnosis (1) Disorganized schizophrenia Diagnosis: Principal Code(s): F20.1 - Disorganized schizophrenia Status: Acute Discharge Disposition: Home - Discharge Instructions Discharge Diet: Regular Diet Activities You Can Perform: Regular- No Restrictions - Discharge Time > 30 minutes Mental Status Examination Appearance: Appropriate Consciousness: Alert Orientation: Person, Place (At least) Motor Activity: Normal gait, Other (No abnormal motor movements noted) Speech: Unremarkable Language: Adequate Fund of Knowledge: Inadequate Attention and Concentration: Adequate Memory: Unremarkable Mood: Appropriate Affect: Appropriate Thought Process & Associations: Tangential (Perhaps a little more linear today) Thought Content: Bizarre thinking Hallucination Type: None Delusion Type: None, Other (Somewhat vigilant) Suicidal Ideation: No Suicidal Plan: No Suicidal Intention: No Homicidal Ideation: No Homicidal Plan: No Homicidal Intention: No Insight: Poor Judgment: Poor Discharge/Advance Care Plan - Results Vital Signs: Last Vital Signs Temp 98.3 F 09/22/18 06:16 Pulse 60 09/22/18 06:16 Resp 18 09/22/18 06:16 BP 93/51 L 09/22/18 06:16 Pulse Ox 97 09/22/18 06:16 Lab Results: Laboratory Results Hemoglobin A1c 5.4 % (4.3-6.0) 08/25/18 08:43 Triglycerides 35 mg/dL (42-150) L 08/25/18 08:43 Cholesterol 110 mg/dL (120-200) L 08/25/18 08:43 LDL Cholesterol, Calc 44 mg/dL (0-99) 08/25/18 08:43 HDL Cholesterol 58.6 mg/dL (40.0-60.0) 08/25/18 08:43 TSH 1.330 uIU/mL (0.358-3.740) 08/24/18 18:05 Urine Culture Comments Culture not ind 08/26/18 15:45 Valproic Acid 90 mcg/mL (50-100) 09/18/18 06:13 Summary of Procedures: None done Pending Results: None - Medications Number of antipsychotic medications at discharge: 2 Appropriate use of more than 1 antipsychotic med: Doc plan:prev multi med use- monotherapy taper/cross-taper in progress (Would recommend is patient continues to stabilize consider gradual taper of the Prolixin with continuation of the Martinez sustain a at 234 mg monthly) - Discharge Care Plan Goals to Promote Your Health: * To prevent worsening of your condition and complications * To maintain your health at the optimal level Directions to Meet Your Goals: Take your medications as prescribed Follow your dietary instruction Follow activity as directed Keep your appointments as scheduled Take your immunizations and boosters as scheduled If your symptoms worsen call your PCP, if no PCP go to Urgent Care Center or Emergency Room For 22/04 questions related to your inpatient stay or results of tests pending at discharge, please contact Dr. Hugo Stevens MD at Smoking is Dangerous to Your Health. Avoid second hand smoking
== END 2018-09-22 12:30 | disposition home or self-care (01) ==
LOC: NEPJ 12:35 → NEDA 18:28 → H270 18:34
PROVIDERS: ADMIT Psychiatry & Neurology Psychiatry; ATTEND Psychiatry & Neurology Psychiatry